=== PATIENT | female | born 1960 | race African-American/Black ===

== ENCOUNTER 2016-08-02 06:36 | Emergency (ER) | payer MEDICARE, OTHER ==
[~2016-08-02] VITALS: Ht 180.3 cm; Wt 132.0 kg
[~2016-08-02 06:36] MED LIST: CLIN-44 PO; FOLI1TAB16 PO; GUAI-56 PO; HYDR-2762 PO; HYDR-971 PO; HYDR25TA9 PO; IBUP-1060 PO; LISI-334 PO; MELO-156 PO; METH2.5T PO; METO50TA2 PO; OXYC-323 PO; PRED-220 PO; RANI150T2 PO; TRAMADOL
[2016-08-02] MEDS ORDERED: ACETAMINOPHEN 325 MG TABLET. PO ONE (07:15)
[2016-08-02 07:40] LABS: BILIRUBIN,URINE NEGATIVE (NEG); GLUCOSE,URINE NEGATIVE (NEG); NITRITE,URINE NEGATIVE (NEG); PH,URINE 5.5; PROTEIN,URINE NEGATIVE (NEG-TRACE); UROBILINOGEN,URINE 0.2 mg/dL (0.2 mg/dL)
--- NOTE | 2016-08-02 07:57 | PHYS DOC ---
Past Medical History Past Medical History: Arthritis, GERD, Hypertension, Other Additional Past Medical Histor: RA Past Surgical History: Other Additional Past Surgical Histo: cyst removed from back Alcohol Use: Occasionally Drug Use: None Adult General Chief Complaint Chief Complaint: HEADACHE HPI HPI Patient is a 56 year old female who presents with illness. Patient reports 2 day history of rhinorrhea, sore throat, dry cough, nausea, & generalized headache. Headache not sudden in onset, not the worst headache of her life. Describes as generalized/frontal, aching. Denies fevers/chills, chest pain, shortness of breath, neck stiffness, abdominal pain, vomiting, diarrhea. Patient has rheumatoid arthritis for which she takes methotrexate. Received a flu shot and pneumonia vaccine this year. PCP is Dr. Sahu. Review of Systems Review of Systems Constitutional: Denies fever or chills Eyes: Denies change in visual acuity HENT: Reports nasal congestion and sore throat Respiratory: Reports cough, denies shortness of breath Cardiovascular: Denies chest pain or edema GI: Reports nausea. Denies abdominal pain, vomiting, bloody stools or diarrhea : Denies dysuria or hematuria Musculoskeletal: Denies back pain or joint pain Integument: Denies rash or skin lesions Neurologic: Reports headache, denies focal weakness or sensory changes Current Medications Current Medications Current Medications Medications (Trade) Dose Ordered Sig/Haylee Start Time Stop Time Status Last Admin Dose Admin Acetaminophen (Tylenol) 650 mg 1X ONCE 08/02/16 07:15 08/02/16 07:16 DC 08/02/16 07:18 650 MG Allergies Allergies Allergies Coded Allergies Type Severity Reaction Last Updated Verified No Known Drug Allergies 04/02/16 No Physical Exam Physical Exam Constitutional: Obese, cheerful, no acute distress, non-toxic appearance. HENT: Normocephalic, atraumatic, bilateral external ears normal, TMs clear bilaterally without bulging or erythema, oropharynx moist, no tonsillar enlargement or exudate, nose normal. Eyes: PERRLA, EOMI, conjunctiva normal, no discharge. Neck: supple, no stridor. No nuchal rigidity Cardiovascular: RRR, no murmurs, no edema. Lungs & Thorax: LCTAB, no wheezing, no respiratory distress. Abdomen: soft, nontender, nondistended. Skin: Warm, dry, no erythema, no rash. Back: No tenderness. Extremities: No tenderness, no edema. Neurologic: Alert and oriented X 3, cranial nerves II through XII grossly intact , symmetric strength and sensation upper and lower extremities, no focal deficits noted. Psychologic: Affect normal, judgement normal, mood normal. Current Patient Data Vital Signs Vital Signs Date Time Temp Pulse Resp B/P Pulse Ox O2 Delivery O2 Flow Rate FiO2 08/02/16 06:38 98.3 77 18 169/92 98 Room Air 98.3 Lab Values Laboratory Tests Test 08/02/16 07:14 08/02/16 07:20 Group A Streptococcus Rapid Negative (NEGATIVE) Urine Collection Type Unknown Urine Color Yellow Urine Clarity Clear Urine pH 5.5 Urine Specific [place] 1.015 Urine Protein Negativemg/dL (NEG-TRACE) Urine Glucose (UA) Negativemg/dL (NEG) Urine Ketones (Stick) Negativemg/dL (NEG) Urine Blood Negative (NEG) Urine Nitrite Negative (NEG) Urine Bilirubin Negative (NEG) Urine Urobilinogen Dipstick 0.2mg/dL (0.2 mg/dL) Urine Leukocyte Esterase Negative (NEG) Urine RBC 0/HPF (0-2) Urine WBC Occ/HPF (0-4) Urine Squamous Epithelial Cells Mod/LPF Urine Bacteria Few/HPF (0-FEW) Urine Mucus Slight/LPF EKG EKG [] Radiology/Procedures Radiology/Procedures Chest x-ray: Interpreted by me: No cardiomegaly, no infiltrate, no pneumothorax , no acute process. [] Course & Med Decision Making Course & Med Decision Making Pertinent Labs and Imaging studies reviewed. (See chart for details) Patient presents with both symptoms. Very well-appearing, vitals stable except mildly elevated blood pressure and she is on medication chronically, currently asymptomatic. No focal findings on physical exam. Negative UA, negative influenza, normal chest x-ray. Recommend supportive care, follow up with primary care physician in 2-3 days if not improving. Return to the emergency department for high fever, severe headache, severe chest pain or shortness of breath, severe abdominal pain, uncontrolled vomiting, any otherwise worsening condition. Discharged home in stable condition. Dragon Disclaimer Dragon Disclaimer This electronic medical record was generated, in whole or in part, using a voice recognition dictation system. Departure Departure Impression: Primary Impression: URI (upper respiratory infection) Disposition: HOME, SELF-CARE Condition: STABLE Referrals: MIGUEL SAHU MD (PCP) Patient Instructions: Upper Respiratory Infection, Adult, [id number] Additional Instructions: You were seen in the emergency department today for illness. This appears to be caused by a virus. Please rest, drink clear fluids, take Tylenol as needed for pain or fever. Follow-up with primary care physician if not improving in 2-3 days. Return to the emergency department for high fever, severe headache, severe chest pain or shortness of breath, severe abdominal pain, uncontrolled vomiting, any otherwise worsening condition. ELIZABETH TUCKER MD Aug 02, 2016 07:56
[2016-08-02 08:00] LABS: NEGATIVE OBC STREP NEG; POSITIVE OBC STREP POS
[2016-08-02 08:03] LABS: BACTERIA,URINE FEW /HPF (0-FEW); RBC,URINE 0 /HPF (0-2); SQUAMOUS EPITHELIAL CELL,UR MOD /LPF; WBC,URINE OCC /HPF (0-4)
--- NOTE | 2016-08-02 08:28 | RAD ---
Indication cough. Near syncope. PA and lateral views of the chest were obtained. Comparison is made to an examination 09/25/2015. The heart and pulmonary vessels are within normal limits. There is no focal infiltrate. A significant change compared to the previous exam is not seen. IMPRESSION: No acute finding. No significant change
[2016-08-02 08:37] VITALS: BP 140/95
== END 2016-08-02 08:38 | disposition home or self-care (01) ==
LOC: ER 06:36
DX: J06.9 Acute upper respiratory infection, unspecified (principal); R51 Headache; I10 Essential (primary) hypertension; K21.9 Gastro-esophageal reflux disease without esophagitis; M06.9 Rheumatoid arthritis, unspecified
CPT/HCPCS: 71020; 81001; 87070; 87880; 99285-25

== ENCOUNTER 2016-12-20 23:20 | Emergency (ER) | payer MEDICARE, OTHER ==
[~2016-12-20] VITALS: Ht 180.3 cm; Wt 132.0 kg
[~2016-12-20 23:20] MED LIST changes: -CLIN-44 PO; +CLIN150C14 PO; -MELO-156 PO; +MELO7.5T29 PO
[2016-12-21 00:19] LABS: BASO % 0 % (0-3); EOS % 3 % (0-3); HEMATOCRIT 40.7 % (36.0-47.0); HEMOGLOBIN 13.2 g/dL (12.0-15.5); LYMPH # 3.5 x10^3/uL (1.0-4.8); LYMPH % 40 % (24-48); MEAN CORPUSCULAR HEMOGLOBIN 30 pg (25-35); MEAN CORPUSCULAR HGB CONC 32 g/dL (31-37); MEAN CORPUSCULAR VOLUME 92 fL (79-100); MONO % 5 % (0-9); NEUT % 53 % (31-73); PLATELET COUNT 292 x10^3/uL (140-400); RED BLOOD COUNT 4.41 x10^6/uL (3.50-5.40); RED CELL DISTRIBUTION WIDTH 13.5 % (11.5-14.5); WHITE BLOOD COUNT 8.9 x10^3/uL (4.0-11.0)
[2016-12-21 00:32] LABS: PROTHROMBIN TIME PATIENT 12.4 SEC (11.7-14.0)
[2016-12-21 00:34] LABS: CALCIUM 9.1 mg/dL (8.5-10.1); CREATININE 0.9 mg/dL (0.6-1.0); GFR 78.4; POTASSIUM 3.3 mmol/L (3.5-5.1)
[2016-12-21 00:40] LABS: ALBUMIN 3.8 g/dL (3.4-5.0); ALBUMIN/GLOBULIN RATIO 0.9 (1.0-1.7); TOTAL BILIRUBIN 0.2 mg/dL (0.2-1.0); TOTAL PROTEIN 8.1 g/dL (6.4-8.2)
--- NOTE | 2016-12-21 00:45 | RAD ---
CT HEAD INDICATION: right side numbness COMPARISON: None available TECHNIQUE: 5 mm contiguous axial images were obtained from the skull base to the vertex. Exposure: One or more of the following individualized dose reduction techniques were utilized for this examination: 1. Automated exposure control 2. Adjustment of the mA and/or kV according to patient size 3. Use of iterative reconstruction technique. FINDINGS: No abnormal attenuation within the brain parenchyma. No evidence of acute intracranial hemorrhage. No extra-axial fluid collections. No mass effect or midline shift. Ventricular size is appropriate. Basal cisterns are patent. No fractures identified.Maza-white differentiation is preserved.Globes and orbits are within normal limits. Paranasal sinuses and mastoid air cells are clear. IMPRESSION: No acute intracranial findings . Electronically signed by: Kennedy Orozco MD (12/21/2016 12:41 AM) [facility]
[2016-12-21 00:57] LABS: BILIRUBIN,URINE NEGATIVE (NEG); GLUCOSE,URINE NEGATIVE (NEG); NITRITE,URINE NEGATIVE (NEG); PH,URINE 5.5; PROTEIN,URINE NEGATIVE (NEG-TRACE); UROBILINOGEN,URINE 0.2 mg/dL (0.2 mg/dL)
[2016-12-21 01:03] LABS: BACTERIA,URINE MANY /HPF (0-FEW); RBC,URINE 0 /HPF (0-2); SQUAMOUS EPITHELIAL CELL,UR MOD /LPF; WBC,URINE OCC /HPF (0-4)
[2016-12-21 01:04] LABS: BARBITURATES NEG (NEG); BENZODIAZEPINES NEG (NEG); CANNABINOIDS NEG (NEG); COCAINE NEG (NEG); METHADONE NEG (NEG); OPIATES NEG (NEG); PHENCYCLIDINE NEG (NEG)
[2016-12-21] MEDS ORDERED: ONDANSETRON PF 4 MG/2 ML VIAL. IV ONE (01:15)
[2016-12-21] MEDS ORDERED: POTASSIUM CHLORIDE 20 MEQ TABLET.ER. PO ONE (01:30)
--- NOTE | 2016-12-21 01:50 | PHYS DOC ---
Past Medical History Past Medical History: Arthritis, GERD, Hypertension, Other Additional Past Medical Histor: RA Past Surgical History: Other Additional Past Surgical Histo: cyst removed from back Alcohol Use: Occasionally Drug Use: None Adult General Chief Complaint Chief Complaint: NEURO SYMPTOMS/DEFICITS HPI HPI Patient is a 56 year old female who presents with right sided numbness. The patient states she fell asleep between [id number], woke up around 2200 feeling numb on her entire right side from her face to torso/upper extremity & lower extremity. Denies associated weakness. She reports shortness of breath & loose bowel movements. Denies fevers/chills, headache, chest pain, nausea, vomiting, hematochezia/melena, dysuria/hematuria. She reports previous history of similar symptoms associated with rheumatoid arthritis & believes that is the cause of tonight's symptoms but wants to be sure. History of HTN & GERD. Her PCP is Dr. Guzman. Review of Systems Review of Systems Constitutional: Denies fever or chills Eyes: Denies change in visual acuity HENT: Denies nasal congestion or sore throat Respiratory: Denies cough, reports shortness of breath Cardiovascular: Denies chest pain or edema GI: Denies abdominal pain, nausea, vomiting, bloody stools, reports diarrhea : Denies dysuria or hematuria Musculoskeletal: Denies back pain or joint pain Integument: Denies rash or skin lesions Neurologic: Denies headache, focal weakness, reports numbness Current Medications Current Medications Current Medications Medications (Trade) Dose Ordered Sig/Ahylee Start Time Stop Time Status Last Admin Dose Admin Ondansetron HCl (Zofran) 4 mg 1X ONCE 12/21/16 01:15 12/21/16 01:16 DC 12/21/16 01:01 4 MG Potassium Chloride (Klor-Con) 40 meq 1X ONCE 12/21/16 01:30 12/21/16 01:31 DC 12/21/16 01:22 40 MEQ Allergies Allergies Allergies Coded Allergies Type Severity Reaction Last Updated Verified No Known Drug Allergies 04/02/16 No Physical Exam Physical Exam Constitutional: obese, no acute distress, non-toxic appearance. HENT: Normocephalic, atraumatic, bilateral external ears normal, oropharynx moist, nose normal. Eyes: PERRLA, EOMI, conjunctiva normal, no discharge. Neck: supple, no stridor. Cardiovascular: RRR, no murmurs, no edema. Lungs & Thorax: LCTAB, no wheezing, no respiratory distress. Abdomen: soft, nontender, nondistended. Skin: Warm, dry, no erythema, no rash. Back: No tenderness. Extremities: No tenderness, no edema. Neurologic: Alert and oriented X 3, CN2-12 grossly intact, symmetric strength to UE & LE, slightly decreased sensation to light touch diffusely to her entire right side, no focal deficits noted. Psychologic: Affect normal, judgement normal, mood normal. Current Patient Data Vital Signs Vital Signs Date Time Temp Pulse Resp B/P (MAP) Pulse Ox O2 Delivery O2 Flow Rate FiO2 12/21/16 02:15 74 20 120/78 (92) 97 Room Air 12/20/16 23:28 97.5 97.5 Lab Values Laboratory Tests Test 12/21/16 00:01 12/21/16 00:40 White Blood Count 8.9 x10^3/uL (4.0-11.0) Red Blood Count 4.41 x10^6/uL (3.50-5.40) Hemoglobin 13.2 g/dL (12.0-15.5) Hematocrit 40.7 % (36.0-47.0) Mean Corpuscular Volume 92 fL (79-100) Mean Corpuscular Hemoglobin 30 pg (25-35) Mean Corpuscular Hemoglobin Concent 32 g/dL (31-37) Red Cell Distribution Width 13.5 % (11.5-14.5) Platelet Count 292 x10^3/uL (140-400) Neutrophils (%) (Auto) 53 % (31-73) Lymphocytes (%) (Auto) 40 % (24-48) Monocytes (%) (Auto) 5 % (0-9) Eosinophils (%) (Auto) 3 % (0-3) Basophils (%) (Auto) 0 % (0-3) Neutrophils # (Auto) 4.7 x10^3uL (1.8-7.7) Lymphocytes # (Auto) 3.5 x10^3/uL (1.0-4.8) Monocytes # (Auto) 0.4 x10^3/uL (0.0-1.1) Eosinophils # (Auto) 0.2 x10^3/uL (0.0-0.7) Basophils # (Auto) 0.0 x10^3/uL (0.0-0.2) Prothrombin Time 12.4 SEC (11.7-14.0) Prothrombin Time INR 1.0 (0.8-1.1) PTT 28 SEC (24-38) Sodium Level 142 mmol/L (136-145) Potassium Level 3.3 mmol/L (3.5-5.1) L Chloride Level 104 mmol/L (98-107) Carbon Dioxide Level 29 mmol/L (21-32) Anion Gap 9 (6-14) Blood Urea Nitrogen 9 mg/dL (7-20) Creatinine 0.9 mg/dL (0.6-1.0) Estimated GFR (Cockcroft-Gault) 78.4 BUN/Creatinine Ratio 10 (6-20) Glucose Level 135 mg/dL (70-99) H Calcium Level 9.1 mg/dL (8.5-10.1) Total Bilirubin 0.2 mg/dL (0.2-1.0) Aspartate Amino Transferase (AST) 15 U/L (15-37) Alanine Aminotransferase (ALT) 22 U/L (14-59) Alkaline Phosphatase 115 U/L (46-116) Troponin I Quantitative < 0.017 ng/mL (0.000-0.055) SQ-Rqs-T-Type Natriuretic Peptide 182 pg/mL (0-124) H Total Protein 8.1 g/dL (6.4-8.2) Albumin 3.8 g/dL (3.4-5.0) Albumin/Globulin Ratio 0.9 (1.0-1.7) L Ethyl Alcohol Level < 10 mg/dL (0-10) Urine Collection Type Unknown Urine Color Yellow Urine Clarity Clear Urine pH 5.5 Urine Specific [place] 1.015 Urine Protein Negative mg/dL (NEG-TRACE) Urine Glucose (UA) Negative mg/dL (NEG) Urine Ketones (Stick) Negative mg/dL (NEG) Urine Blood Negative (NEG) Urine Nitrite Negative (NEG) Urine Bilirubin Negative (NEG) Urine Urobilinogen Dipstick 0.2 mg/dL (0.2 mg/dL) Urine Leukocyte Esterase Negative (NEG) Urine RBC 0 /HPF (0-2) Urine WBC Occ /HPF (0-4) Urine Squamous Epithelial Cells Mod /LPF Urine Bacteria Many /HPF (0-FEW) Urine Mucus Slight /LPF Urine Opiates Screen Neg (NEG) Urine Methadone Screen Neg (NEG) Urine Barbiturates Neg (NEG) Urine Phencyclidine Screen Neg (NEG) Urine Amphetamine/Methamphetamine Neg (NEG) Urine Benzodiazepines Screen Neg (NEG) Urine Cocaine Screen Neg (NEG) Urine Cannabinoids Screen Neg (NEG) Urine Ethyl Alcohol Neg (NEG) Laboratory Tests 12/21/16 00:01 Laboratory Tests 12/21/16 00:01 EKG EKG Interpreted by me: Normal sinus rhythm rate 83, no acute ST or T wave changes, normal intervals, no ectopy. [] Radiology/Procedures Radiology/Procedures PROCEDURE: CT HEAD WO CONTRAST CT HEAD INDICATION: right side numbness COMPARISON: None available TECHNIQUE: 5 mm contiguous axial images were obtained from the skull base to the vertex. Exposure: One or more of the following individualized dose reduction techniques were utilized for this examination: 1. Automated exposure control 2. Adjustment of the mA and/or kV according to patient size 3. Use of iterative reconstruction technique. FINDINGS: No abnormal attenuation within the brain parenchyma. No evidence of acute intracranial hemorrhage. No extra-axial fluid collections. No mass effect or midline shift. Ventricular size is appropriate. Basal cisterns are patent. No fractures identified.Maza-white differentiation is preserved.Globes and orbits are within normal limits. Paranasal sinuses and mastoid air cells are clear. IMPRESSION: No acute intracranial findings . Electronically signed by: Kennedy Orozco MD (12/21/2016 12:41 AM) [facility] DICTATED and SIGNED BY: KENNEDY OROZCO MD DATE: 12/21/16 0039 CXR, portable: interpreted by me: cardiomegaly, no infiltrate, no pneumothorax.[] Course & Med Decision Making Course & Med Decision Making Pertinent Labs and Imaging studies reviewed. (See chart for details) The patient presents with several complaints including right sided numbness & tingling, shortness of breath, diarrhea. She is cheerful & well appearing with essentially unremarkable exam other than some sensory changes on the right. Vitals stable with the exception of elevated blood pressure upon arrival. She states she has HTN, just took her night meds before coming to the hospital. Obtained labs, UA, EKG, CXR, head CT. Found to have mild hypokalemia. She felt better after treatment with improvement of blood pressure to high normal range, resolution of dyspnea. Discussed disposition & she feels reassured by workup here. Symptoms atypical for ACS or acute neurologic event, offered admission but she prefers to go home to rest in her own bed & prefers to follow up with primary care physician on Friday. Recommend rest, hydration, tylenol or ibuprofen for pain or fever. Follow up with Dr. Guzman in 2-3 days. Come back for severe chest pain or abdominal pain, severe shortness of breath, uncontrolled vomiting, new focal neuro deficit, any otherwise worsening condition. Discharged home in stable condition. [] Dragon Disclaimer Dragon Disclaimer This electronic medical record was generated, in whole or in part, using a voice recognition dictation system. Departure Departure Impression: Primary Impression: Viral syndrome Additional Impressions: Paresthesia Hypokalemia Disposition: HOME, SELF-CARE Condition: STABLE Referrals: MIGUEL GUZMAN MD (PCP) Patient Instructions: Viral Syndrome Additional Instructions: You were seen in the emergency department today. Tests here did not show serious cause of symptoms. Please rest, drink fluids, take Tylenol or ibuprofen for pain. Continue take all medications as prescribed by your doctor. Follow-up with primary care physician in 2-3 days. Return to the emergency department for high fever, severe chest pain or shortness of breath, uncontrolled vomiting, numbness or weakness in arms or legs, any otherwise worsening condition. Problem Qualifiers ELIZABETH TUCKER MD Dec 21, 2016 01:50
[2016-12-21 02:15] VITALS: BP 120/78
--- NOTE | 2016-12-21 07:22 | EKG ---
[facility] [address] [place] [address] Test Date: 2016-12-20 Test Time: 23:34:07 Pat Name: DEAN TREVIZO Department: Room: Gender: F Change Release Manager: : 1960 Requested By: ELIZABETH TUCKER Order Number: [id number] Reading MD: Anna Nassar Measurements Intervals Spring Rate: 83 P: 28 VA: 150 QRS: -13 QRSD: 80 T: 17 QT: 378 QTc: 450 Interpretive Statements SINUS RHYTHM LEFTWARD AXIS NO SPECIFIC ECG ABNORMALITIES Electronically Signed On 12-22-2016 19:54:23 CDT by Anna Nassar
--- NOTE | 2016-12-21 08:00 | RAD ---
Indication: Short of breath. Technique: Upright portable chest radiograph was obtained. Comparison is from August 02, 2016. Findings: The lungs are clear. The cardiopulmonary silhouette is within normal limits. The bony structures are intact. Leads overlie the patient. Impression: No active pulmonary disease.
[2016-12-24] MEDS ORDERED: PANT40GR PO (10:19)
[2016-12-24] MEDS ORDERED: DICY10CA53 PO (10:19)
== END 2016-12-21 02:17 | disposition home or self-care (01) ==
LOC: ER 23:20
DX: B34.9 Viral infection, unspecified (principal); R20.2 Paresthesia of skin; R20.0 Anesthesia of skin; R19.7 Diarrhea, unspecified; R06.02 Shortness of breath; E87.6 Hypokalemia; I10 Essential (primary) hypertension; K21.9 Gastro-esophageal reflux disease without esophagitis; M06.9 Rheumatoid arthritis, unspecified; E66.9 Obesity, unspecified; Z68.41 Body mass index [BMI] 40.0-44.9, adult
CPT/HCPCS: 36415; 70450; 71010; 80053; 80307; 81001; 83880; 84484; 85025; 85610; 85730; 87086; 93005; 96374; 99285; G0480; J2405; G0479

== ENCOUNTER 2016-12-22 07:09 | Inpatient (IN) | payer MEDICARE, OTHER ==
[~2016-12-22] VITALS: Ht 180.3 cm; Wt 142.9 kg
--- NOTE | 2016-12-22 07:16 | PHYS DOC ---
Past Medical History Past Medical History: Arthritis, GERD, Hypertension, Other Additional Past Medical Histor: RA Past Surgical History: Other Additional Past Surgical Histo: cyst removed from back Alcohol Use: Occasionally Drug Use: None Adult General Chief Complaint Chief Complaint: BLOODY STOOL HPI HPI Patient is a 56 year old -[place] female who presents with abdominal pain and blood in her stools. She states that she was fine until about 1 AM when she woke up with crampy abdominal pain and use a bathroom and had a large loose stool followed by bright red blood. She states since then she started up approximately 3 times nonbloody nonbilious vomit. She states that she has diffuse abdominal cramps and has had 2-3 more episodes of a small amount of bright red blood in the toilet. She states she's been using 800 mg of ibuprofen 3 times daily since Friday. She has a history of RA and is on methotrexate daily. 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 She also states that she feels over the last month her abdomen is been more distended than normal. She states she was unable to take her blood pressure medicines this morning and that's why her blood pressures elevated. Review of Systems Review of Systems Constitutional: Denies fever or chills [] Eyes: Denies change in visual acuity, redness, or eye pain [] HENT: Denies nasal congestion or sore throat [] Respiratory: Denies cough or shortness of breath [] Cardiovascular: No additional information not addressed in HPI [] GI: Positive for abdominal pain, nausea, vomiting, bloody stools and diarrhea [] : Denies dysuria or hematuria [] Musculoskeletal: Denies back pain or joint pain [] Integument: Denies rash or skin lesions [] Neurologic: Denies headache, focal weakness or sensory changes [] Endocrine: Denies polyuria or polydipsia [] Current Medications Current Medications Current Medications Medications (Trade) Dose Ordered Sig/Haylee Start Time Stop Time Status Last Admin Dose Admin Morphine Sulfate 2 mg PRN Q15MIN PRN 12/22/16 07:45 12/22/16 08:34 DC 12/22/16 08:11 2 MG Sodium Chloride 1,000 ml @ 1,000 mls/hr 1X ONCE 12/22/16 07:45 12/22/16 08:44 DC 12/22/16 08:11 1,000 MLS/HR Allergies Allergies Allergies Coded Allergies Type Severity Reaction Last Updated Verified No Known Drug Allergies 04/02/16 No Physical Exam Physical Exam Constitutional: Well developed, well nourished, no acute distress, non-toxic appearance. [] HENT: Normocephalic, atraumatic, bilateral external ears normal, oropharynx moist, no oral exudates, nose normal. [] Eyes: PERRLA, EOMI, conjunctiva normal, no discharge. [] Neck: Normal range of motion, no tenderness, supple, no stridor. [] Cardiovascular:Heart rate regular rhythm, no murmur [] Lungs & Thorax: Bilateral breath sounds clear to auscultation [] Abdomen/rectal exam: Bowel sounds normal, soft, no tenderness, no masses, no pulsatile masses. Rectal exam shows no hemorrhoids, normal tone, small amount of bright red blood, no stool noted. Skin: Warm, dry, no erythema, no rash. [] Back: No tenderness, no CVA tenderness. [] Extremities: No tenderness, no cyanosis, no clubbing, ROM intact, no edema. [] Neurologic: Alert and oriented X 3, normal motor function, normal sensory function, no focal deficits noted. [] Psychologic: Affect normal, judgement normal, mood normal. [] Current Patient Data Vital Signs Vital Signs Date Time Temp Pulse Resp B/P (MAP) Pulse Ox O2 Delivery O2 Flow Rate FiO2 12/22/16 07:09 97 18 212/112 (145 99 Room Air EKG EKG EKG shows sinus rhythm with a rate of [address] elevations, T-wave inversions noted in leads 3, left axis deviation noted, QTC 455 ms, as interpreted by me. Radiology/Procedures Radiology/Procedures [facility] [address] [place] [address] IMAGING REPORT Signed PATIENT: DEAN TREVIZO ACCOUNT: [id number] : 1960 LOCATION: [address] [place] [address] AGE: 56 SEX: F EXAM STATUS: ADM IN ORD. PHYSICIAN: RENU WILLAMS MD REASON: abd pain, gi bleed PROCEDURE: CT ABD PELV W/ IV CONTRST ONLY Indication: Abdominal pain, nausea, GI bleed today. Technique: Axial images and coronal and sagittal reformatted images are provided. 75 mL of intravenous Omnipaque 300 was administered without complication. No comparison is available. One or more of the following individualized dose reduction techniques were utilized for this examination: 1. Automated exposure control 2. Adjustment of the mA and/or kV according to patient size 3. Use of iterative reconstruction technique Findings: There is dependent atelectasis. There is no pleural effusion. The heart is not enlarged. There is mild fatty infiltration of the liver. Gallbladder is unremarkable. Spleen is not enlarged. Pancreas and adrenals are unremarkable. Kidneys are symmetrically perfused. Aorta is normal caliber with minimal atheromatous disease. Lack of oral contrast limits evaluation of bowel. There is no small bowel obstruction or mural thickening. There are a few diverticula in the colon, but no adjacent inflammatory stranding to suggest a diverticulitis. Much of the colon is decompressed limiting evaluation. A normal appendix is noted. Calcified phleboliths are noted. There may also be ligation clips. There is no adnexal mass. Bladder is decompressed. There are mild degenerative changes in the spine. Impression: 1. No acute abdominal findings. 2. A few diverticula in the colon but no findings of diverticulitis. Evaluation of the colon is limited given incomplete distention. 3. Mild fatty infiltration of the liver. DICTATED and SIGNED BY: NORY MIRAMONTES MD DATE: 12/22/16 0914 CC: RENU WILLAMS MD; KUSHAL GUZMAN MD ~ Impressions: GI bleed Uncontrolled hypertension Rheumatoid arthritis Course & Med Decision Making Course & Med Decision Making Pertinent Labs and Imaging studies reviewed. (See chart for details) On rectal exam patient has small amount of bright red blood, she's had 3 very small bright red blood bowel movements here in the ER. I She is not tachycardic. She is hypertensive. She is received IV hydralazine to help control her blood pressure. She was started on IV Pepcid since we have a shortage of Protonix. CT of abdomen pelvis did not show any acute abnormalities. Spoke with Dr. Guzman, who once GI consult. Patient's in stable condition being admitted to the floor. Spoke with Dr. Moreira who wanted Protonix drip started. I had pharmacy add this order, since we have a shortage of Protonix and they will send an upstairs to her room since she's being transported upstairs at this time. Dragon Disclaimer Dragon Disclaimer This electronic medical record was generated, in whole or in part, using a voice recognition dictation system. Departure Departure Impression: Primary Impression: GI bleed Disposition: ADMITTED INPATIENT Admitting Physician: Kushal Guzman Condition: STABLE Referrals: KUSHAL GUZMAN MD (PCP) Problem Qualifiers Primary Impression: GI bleed GI bleed type/associated pathology: unspecified gastrointestinal hemorrhage type Qualified Codes: K92.2 - Gastrointestinal hemorrhage, unspecified RENU WILLAMS MD Dec 22, 2016 07:16
[2016-12-22] MEDS ORDERED: IV NORMAL SALINE 1000ML BAG 1,000 ML IV ONE (07:45)
[2016-12-22] MEDS ORDERED: MORPHINE SULFATE 4 MG/ML DISP.SYRIN. IV/SQ PRN (07:45)
[2016-12-22] MEDS ORDERED: CONTRAST GIVEN MC PRN (08:15)
[2016-12-22] MEDS ORDERED: ONDANSETRON PF 4 MG/2 ML VIAL. IV ONE (08:15)
[2016-12-22 08:23] LABS: NEG OBC FOB NEG; POS OBC FOB POS
[2016-12-22] MEDS ORDERED: FAMOTIDINE 20 MG/2 ML VIAL IVP ONE (08:30)
[2016-12-22] MEDS ORDERED: hydrALAZINE 20 MG/ML VIAL. IVP ONE (08:30)
[2016-12-22] MEDS ORDERED: IOHEXOL 300 MG/ML 75 ML VIAL IV ONE (08:30)
[2016-12-22 08:50] LABS: BASO % 0 % (0-3); EOS % 1 % (0-3); HEMATOCRIT 40.5 % (36.0-47.0); LYMPH # 1.3 x10^3/uL (1.0-4.8); LYMPH % 10 % (24-48); MEAN CORPUSCULAR HEMOGLOBIN 29 pg (25-35); MEAN CORPUSCULAR HGB CONC 32 g/dL (31-37); MEAN CORPUSCULAR VOLUME 92 fL (79-100); MONO % 4 % (0-9); NEUT % 85 % (31-73); PLATELET COUNT 273 x10^3/uL (140-400); RED BLOOD COUNT 4.42 x10^6/uL (3.50-5.40); RED CELL DISTRIBUTION WIDTH 13.5 % (11.5-14.5); WHITE BLOOD COUNT 12.1 x10^3/uL (4.0-11.0)
[2016-12-22 08:56] LABS: CALCIUM 9.4 mg/dL (8.5-10.1); GFR 69.4; POTASSIUM 4.3 mmol/L (3.5-5.1)
[2016-12-22 09:01] LABS: PROTHROMBIN TIME PATIENT 12.3 SEC (11.7-14.0)
[2016-12-22 09:02] LABS: ALBUMIN 4.3 g/dL (3.4-5.0); DIRECT BILIRUBIN 0.1 mg/dL (0.0-0.2); TOTAL BILIRUBIN 0.2 mg/dL (0.2-1.0); TOTAL PROTEIN 8.3 g/dL (6.4-8.2)
--- NOTE | 2016-12-22 09:22 | RAD ---
Indication: Abdominal pain, nausea, GI bleed today. Technique: Axial images and coronal and sagittal reformatted images are provided. 75 mL of intravenous Omnipaque 300 was administered without complication. No comparison is available. One or more of the following individualized dose reduction techniques were utilized for this examination: 1. Automated exposure control 2. Adjustment of the mA and/or kV according to patient size 3. Use of iterative reconstruction technique Findings: There is dependent atelectasis. There is no pleural effusion. The heart is not enlarged. There is mild fatty infiltration of the liver. Gallbladder is unremarkable. Spleen is not enlarged. Pancreas and adrenals are unremarkable. Kidneys are symmetrically perfused. Aorta is normal caliber with minimal atheromatous disease. Lack of oral contrast limits evaluation of bowel. There is no small bowel obstruction or mural thickening. There are a few diverticula in the colon, but no adjacent inflammatory stranding to suggest a diverticulitis. Much of the colon is decompressed limiting evaluation. A normal appendix is noted. Calcified phleboliths are noted. There may also be ligation clips. There is no adnexal mass. Bladder is decompressed. There are mild degenerative changes in the spine. Impression: 1. No acute abdominal findings. 2. A few diverticula in the colon but no findings of diverticulitis. Evaluation of the colon is limited given incomplete distention. 3. Mild fatty infiltration of the liver.
--- NOTE | 2016-12-22 09:29 | EKG ---
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
[2016-12-22] MEDS: MORPHINE SULFATE 4 MG/ML DISP.SYRIN. IV PRN ×3 (09:40→20:20)
[2016-12-22] MEDS: PANTOPRAZOLE SODIUM IV 80 MG in IV NORMAL SALINE 100ML 100 ML IV SCH ×2 (10:20→21:00)
[2016-12-22] MEDS ORDERED: PANTOPRAZOLE IV PUSH 40 MG VIAL. IVP ONE (10:30)
[2016-12-22 11:04] VITALS: BP 157/105
[2016-12-22 11:39] LABS: BILIRUBIN,URINE NEGATIVE (NEG); GLUCOSE,URINE NEGATIVE (NEG); NITRITE,URINE NEGATIVE (NEG); PROTEIN,URINE 100 mg/dL (NEG-TRACE); UROBILINOGEN,URINE 0.2 mg/dL (0.2 mg/dL)
[2016-12-22 11:49] LABS: BACTERIA,URINE MODERATE /HPF (0-FEW); RBC,URINE TNTC /HPF (0-2); WBC,URINE TNTC /HPF (0-4)
[2016-12-22] MEDS: ONDANSETRON PF 4 MG/2 ML VIAL. IV PRN (12:24)
--- NOTE | 2016-12-22 14:26 | PDOC ---
Provider Note Provider Note Pt seen.H&P dictated. #[id number] MIGUEL GUZMAN MD Dec 22, 2016 14:26
[2016-12-22] MEDS: METOPROLOL TART IMMED RELEASE 50 MG TABLET. PO SCH (14:53)
[2016-12-22] MEDS: hydroCHLOROthiazide 25 MG TABLET PO SCH (14:54)
[2016-12-22] MEDS: LISINOPRIL 20 MG TABLET PO SCH (14:54)
[2016-12-22] MEDS: FOLIC ACID 1 MG TABLET. PO SCH (14:54)
[2016-12-22] MEDS: NICOTINE 14MG PATCH. TD PRN (14:55)
[2016-12-22 14:57] VITALS: BP 162/98
--- NOTE | 2016-12-22 14:58 | HP ---
ADMIT DATE: 12/22/2016 DATE OF SERVICE: 12/22/2016 LOCATION: [facility]. REASON FOR ADMISSION TO THE HOSPITAL: Lower GI bleeding. HISTORY OF PRESENT ILLNESS: The patient is a 56-year-old female who came to the Emergency Room because of blood in the stools. 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 She came to the Emergency Room and had a CT scan that showed some diverticulosis. The patient was admitted to the hospital. She was taking ibuprofen 800 mg 3 times daily and had seen her grad intern and also put on methotrexate. The patient was admitted to the hospital because of her lower GI bleed. PAST MEDICAL HISTORY: Arthritis, hypertension, GERD, rheumatoid arthritis. PAST SURGICAL HISTORY: Cyst removed from the back. SOCIAL HISTORY: Denies any drugs, has history of smoking in the past and social alcohol. FAMILY HISTORY: Positive for hypertension, heart disease. REVIEW OF SYSTEMS: CARDIAC: No chest pain. GASTROINTESTINAL: Has red blood per rectum, no vomiting blood. Rest of the 14 systems was reviewed and negative. ALLERGIES: No known drug allergies. MEDICATIONS AT HOME: The patient is on methotrexate once a week tablets, ibuprofen 800 mg 3 times daily, Zantac 150 mg daily, folic acid 1 mg daily, hydrochlorothiazide 25 daily, lisinopril 20 mg daily, metoprolol 50 mg daily. PHYSICAL EXAMINATION: GENERAL: The patient is not in any distress. VITAL SIGNS: Stable. Temperature 98, pulse 97, respirations 18, blood pressure 212/112. HEENT: Head is atraumatic. Pupils equal. Oral cavity: No congestion. NECK: Supple. Thyroid not enlarged. JVD not elevated. CHEST: Symmetrical. CARDIOVASCULAR: S1, S2. LUNGS: Clear to auscultation. ABDOMEN: Slight tenderness in the lower abdomen. Otherwise, good bowel sounds. No mass palpable. GENITOURINARY: External genitalia and rectal examination is deferred. EXTREMITIES: No calf tenderness. NEUROLOGIC: No focal deficit noted. LABORATORY DATA: White count was 12, hemoglobin 13, platelets 273. Electrolytes show sodium 142, potassium 4.3, chloride 103, bicarbonate 25, anion gap 14, BUN 10, creatinine 1.1, glucose 136. LFTs were normal, alkaline phosphatase 129 slightly elevated, INR 1.0. Urine shows moderate leukocyte esterase, too many white cells. Stool occult blood test was positive. RADIOLOGIC IMAGING: Abdominal and pelvic CT scan shows few diverticula in the colon, mild fatty infiltration of the liver. FINAL IMPRESSION: 1. Lower gastrointestinal bleed. 2. Possible bleed secondary to diverticular bleed. 3. The patient is on ibuprofen for arthritis. 4. The patient has a history of EGD and colonoscopy within last 6 months. 5. Urinary tract infection. PLAN: The patient was admitted to the hospital, hydrated with IV fluids. Consultation done by GI. Monitor hemoglobin and clear liquid diet and also IV Rocephin for UTI after urine cultures were sent and see how she responds. We will give IV Protonix while she is in the hospital. MIGUEL GUZMAN MD DR: AMY/ishmael JOB#: [id number] / [id number] CARMELA
[2016-12-22] MEDS: IV NORMAL SALINE 1000ML BAG 1,000 ML IV SCH (15:00)
[2016-12-22 19:52] VITALS: BP_SYST 140
[2016-12-22 23:37] VITALS: BP 125/84
[2016-12-23] MEDS: ONDANSETRON PF 4 MG/2 ML VIAL. IV PRN ×2 (00:20→16:29)
[2016-12-23] MEDS: MORPHINE SULFATE 4 MG/ML DISP.SYRIN. IV PRN ×5 (00:21→21:33)
[2016-12-23] MEDS: IV NORMAL SALINE 1000ML BAG 1,000 ML IV SCH ×3 (01:00→21:21)
[2016-12-23] MEDS: PANTOPRAZOLE SODIUM IV 80 MG in IV NORMAL SALINE 100ML 100 ML IV SCH (01:31)
[2016-12-23 03:00] VITALS: BP 100/81
--- NOTE | 2016-12-23 03:40 | ACF ---
Admission Forms Criteria GASTROINTESTINAL BLEEDING Clinical Indications for Inpatient Care (Place 'X' for any and all applicable criteria): Ongoing inpatient care may be indicated for gastrointestinal bleeding with ANY ONE of the following (4)(20)(21)(22)(23)(24): [X ]I. Active bleeding (eg, fresh voluminous blood in emesis or nasogastric aspirate, or per rectum) [ ]II. Hemodynamic instability [ ]III. Anticoagulation therapy or coagulopathy ((eg, advanced liver disease, irreversible anticoagulation) [ ]IV. Ischemic colitis (22) [ ]V. Endoscopy showing arterial bleeding, adherent clot, nonbleeding visible vessel, varices, flat red spots, ulcer size greater than 2 cm, or portal hypertensive gastropathy [ ]. High-risk low platelet count [ ]VII. Anemia requiring inpatient care as indicated by ANY ONE of the following a)[ ] Cognitive impairment b)[ ] Syncope c)[ ] Heart failure d)[ ] Chest pain e)[ ] Dyspnea f)[ ] Other findings suggesting inadequate perfusion (eg, peripheral or myocardial ischemia, end organ dysfunction) [ ]VIII. High-risk low platelet count [ ]IX. Suspected variceal cause of bleeding as indicated by ANY ONE of the following(27)(28): a)[ ] Known varices b)[ ] Hepatomegaly or splenomegaly c)[ ] Ascites d)[ ] Jaundice or scleral icterus e)[ ] History of liver disease (eg, cirrhosis) f)[ ] Physical findings of portal hypertension (eg, caput medusa) g)[ ] Comorbid disorder indicating risk for portal vein thrombosis (eg , abdominal surgery, sepsis, shock, exchange transfusion, prior umbilical vein catheterization) Extended stay may be needed until ALL of the following are present(20)(38)(47): [ ]a) Hemodynamic stability [ ]b) No evidence of active bleeding (eg, stable Hematocrit) [ ]c) Platelet count, prothrombin time, and partial thromboplastin time acceptable for next level of care [ ]d) Surgical or other acute intervention not needed [ ]e) Oral hydration and diet tolerated The original [employer] content created by [employer] has been revised. The portions of the content which have been revised are identified through the use of italic text or in bold, and [employer] has neither reviewed nor approved the modified material. All other unmodified content is copyright [facility]. Please see references footnoted in the original [facility] edition 2016 Admission Criteria Met?: Yes PIPO ONEAL Dec 23, 2016 03:40
[2016-12-23 05:39] LABS: BASO % 0 % (0-3); EOS % 1 % (0-3); HEMATOCRIT 38.7 % (36.0-47.0); HEMOGLOBIN 13.1 g/dL (12.0-15.5); LYMPH # 3.7 x10^3/uL (1.0-4.8); LYMPH % 28 % (24-48); MEAN CORPUSCULAR HEMOGLOBIN 30 pg (25-35); MEAN CORPUSCULAR HGB CONC 34 g/dL (31-37); MEAN CORPUSCULAR VOLUME 89 fL (79-100); MONO % 5 % (0-9); NEUT % 65 % (31-73); PLATELET COUNT 302 x10^3/uL (140-400); RED BLOOD COUNT 4.35 x10^6/uL (3.50-5.40); RED CELL DISTRIBUTION WIDTH 13.3 % (11.5-14.5); WHITE BLOOD COUNT 13.1 x10^3/uL (4.0-11.0)
[2016-12-23 06:09] LABS: CALCIUM 9.3 mg/dL (8.5-10.1); CREATININE 1.2 mg/dL (0.6-1.0); GFR 56.2; POTASSIUM 3.3 mmol/L (3.5-5.1)
[2016-12-23 07:00] VITALS: BP 138/98
[2016-12-23] MEDS: FOLIC ACID 1 MG TABLET. PO SCH (08:29)
[2016-12-23] MEDS: hydroCHLOROthiazide 25 MG TABLET PO SCH (08:30)
[2016-12-23] MEDS: LISINOPRIL 20 MG TABLET PO SCH (08:30)
[2016-12-23] MEDS: METOPROLOL TART IMMED RELEASE 50 MG TABLET. PO SCH (08:31)
[2016-12-23] MEDS: NICOTINE 14MG PATCH. TD PRN (08:31)
--- NOTE | 2016-12-23 08:43 | CONS ---
DATE OF CONSULTATION: 12/22/2016 REQUESTING PHYSICIAN: Dr. Sahu. PRIMARY CARE PHYSICIAN: Dr. Sahu. REASON FOR CONSULTATION: Rectal bleed. HISTORY OF PRESENT ILLNESS: This is a 56-year-old female who was admitted to [facility] on 12/22/2016 for blood in her stool. She reports that she had a very large bowel movement yesterday followed by bright red blood. She had some episodes of emesis that were not hematemesis. She also reports abdominal distention over the last several weeks. She has a history of rheumatoid arthritis and has been on methotrexate as well as Motrin. She was recently advised by her solutions consultant to start taking Motrin three times a day. Additionally, she does take uqla-nqo-cidblhs NSAIDs when she has more pain. She is also taking ranitidine for GI issues. Otherwise, she denies a prior history of an upper endoscopy. She reports a colonoscopy by Dr. Juan Daniel Rahman 6 months ago that was reportedly negative. In the Emergency Room, laboratory studies were checked. She was found to be positive for occult blood and her hemoglobin was noted to be 13. Her coags showed an INR of 1. Her BUN was 10 with a creatinine of 1. Her alkaline phosphatase was elevated at 129. PAST MEDICAL HISTORY: 1. Arthritis. 2. GERD. 3. Hypertension. 4. Rheumatoid arthritis. 5. Cyst removal from her back. REVIEW OF SYSTEMS: A 13-point review of systems was done. It is positive as per HPI and otherwise negative. HOME MEDICATIONS: Include: 1. Motrin. 2. Methotrexate. 3. Folic acid. 4. Metoprolol. 5. Lisinopril. 6. Hydrocodone. 7. Ranitidine. 8. Oyzl-uuz-mygtwxd NSAIDs p.r.n. FAMILY MEDICAL HISTORY: No colorectal cancer. SOCIAL HISTORY: No tobacco, alcohol or IV drug abuse. PHYSICAL EXAMINATION: VITAL SIGNS: Temperature is 99.1, blood pressure 157/105, heart rate is 81. GENERAL: She is an obese female in no apparent distress. HEENT: Oropharynx is clear. CARDIOVASCULAR: S1, S2. LUNGS: Clear. ABDOMEN: Does have normoactive bowel sounds, is soft, but diffusely tender to palpation. EXTREMITIES: No edema. NEUROLOGIC: She is awake, alert and oriented x 3. LABORATORY DATA: White blood cell count of 12.1 with a hemoglobin of 13, platelets are 273. Coags are normal. Chemistries show an elevated alkaline phosphatase at 129, but otherwise LFTs are normal. Her BUN was 10 with a creatinine of 1. Fecal occult was positive. UA showed moderate leukocyte esterase, moderate bacteria with too numerous to count red blood cells and white blood cells, but her nitrite was negative. IMAGING STUDIES: CT of the abdomen and pelvis showed a few diverticula in the colon, but no evidence of diverticulitis and mild fatty infiltration of the liver. ASSESSMENT AND PLAN: 1. Rectal bleed: Differential diagnosis includes hemorrhoidal bleed versus a diverticular bleed versus a possible upper gastrointestinal source. Currently, her hemoglobin is high at 13. I have started her on a proton pump inhibitor drip and will continue to monitor her hemoglobin. Anticipate an upper endoscopy in the next 12-24 hours. We will continue to monitor her hemoglobin as well. I favor holding nonsteroidal anti-inflammatories at this time. 2. Increased abdominal distention: Her UA is somewhat suggestive of urinary tract infection. I will defer this evaluation to her primary. 3. Elevated alkaline phosphatase: I will check a GGT. In the setting of increased abdominal distention, consider an abdominal sonogram as well. Thank you for allowing me and Dr. Campbell to participate in the care of this patient. BRENDA RAMIREZ MD DR: CHILANGO/ishmael JOB#: [id number] / [id number] MIGUEL Fabian MD, MICHAEL MD
--- NOTE | 2016-12-23 09:26 | PDOC ---
PROGRESS NOTES Subjective Subjective still has abd pain and mild lower gi bleed Objective Objective Vital Signs Date Time Temp Pulse Resp B/P (MAP) Pulse Ox O2 Delivery O2 Flow Rate FiO2 12/23/16 08:32 Room Air 12/23/16 08:31 90 138/98 12/23/16 07:00 98.6 20 98 98.6 Intake and Output 12/23/16 07:00 Intake Total 1270 ml Output Total 2800 ml Balance -1530 ml Intake Oral 1270 ml Output Urine Total 2800 ml # Bowel Movements 2 Physical Exam Abdomen: Normal bowel sounds, Soft Heart: Regular rate, Normal S1, Normal S2 Extremities: No clubbing General: Alert HEENT: Atraumatic Lungs: Clear to auscultation MUSCULOSKELETAL: No swelling Neck: Supple Neuro: Normal speech Psych/Mental Status: Mood NL Skin: No breakdown Assessment Assessment FINAL IMPRESSION: 1. Lower gastrointestinal bleed. 2. Possible bleed secondary to diverticular bleed vs internal hemorrhoids. 3. The patient is on ibuprofen for arthritis. 4. The patient has a history of EGD and colonoscopy within last 6 months. 5. Urinary tract infection. PLAN: Hb stable at 13. urine c/s pending sono liver this am. ?EGD in am. replace potassium clear liquid diet. add flagyl+rocephin The patient was admitted to the hospital, hydrated with IV fluids. Consultation done by GI. Monitor hemoglobin and clear liquid diet and also IV Rocephin for UTI after urine cultures were sent and see how she responds. We will give IV Protonix while she is in the hospital. Problems: Comment Review of Relevant I have reviewed the following items jessica (where applicable) has been applied. Labs Laboratory Tests Test 12/22/16 11:10 12/22/16 14:00 12/22/16 20:50 12/23/16 04:05 Urine Collection Type Unknown Urine Color Red Urine Clarity Turbid Urine pH 7.0 Urine Specific [employer] [place] >=1.030 Urine Protein 100 mg/dL (NEG-TRACE) Urine Glucose (UA) Negative mg/dL (NEG) Urine Ketones (Stick) Trace mg/dL (NEG) Urine Blood Large (NEG) Urine Nitrite Negative (NEG) Urine Bilirubin Negative (NEG) Urine Urobilinogen Dipstick 0.2 mg/dL (0.2 mg/dL) Urine Leukocyte Esterase Moderate (NEG) Urine RBC Tntc /HPF (0-2) Urine WBC Tntc /HPF (0-4) Urine Bacteria Moderate /HPF (0-FEW) Hemoglobin 13.0 g/dL (12.0-15.5) 12.7 g/dL (12.0-15.5) 13.1 g/dL (12.0-15.5) Troponin I Quantitative < 0.017 ng/mL (0.000-0.055) < 0.017 ng/mL (0.000-0.055) White Blood Count 13.1 x10^3/uL (4.0-11.0) Red Blood Count 4.35 x10^6/uL (3.50-5.40) Hematocrit 38.7 % (36.0-47.0) Mean Corpuscular Volume 89 fL (79-100) Mean Corpuscular Hemoglobin 30 pg (25-35) Mean Corpuscular Hemoglobin Concent 34 g/dL (31-37) Red Cell Distribution Width 13.3 % (11.5-14.5) Platelet Count 302 x10^3/uL (140-400) Neutrophils (%) (Auto) 65 % (31-73) Lymphocytes (%) (Auto) 28 % (24-48) Monocytes (%) (Auto) 5 % (0-9) Eosinophils (%) (Auto) 1 % (0-3) Basophils (%) (Auto) 0 % (0-3) Neutrophils # (Auto) 8.6 x10^3uL (1.8-7.7) Lymphocytes # (Auto) 3.7 x10^3/uL (1.0-4.8) Monocytes # (Auto) 0.7 x10^3/uL (0.0-1.1) Eosinophils # (Auto) 0.2 x10^3/uL (0.0-0.7) Basophils # (Auto) 0.0 x10^3/uL (0.0-0.2) Sodium Level 139 mmol/L (136-145) Potassium Level 3.3 mmol/L (3.5-5.1) Chloride Level 100 mmol/L (98-107) Carbon Dioxide Level 25 mmol/L (21-32) Anion Gap 14 (6-14) Blood Urea Nitrogen 7 mg/dL (7-20) Creatinine 1.2 mg/dL (0.6-1.0) Estimated GFR (Cockcroft-Gault) 56.2 Glucose Level 121 mg/dL (70-99) Calcium Level 9.3 mg/dL (8.5-10.1) Gamma Glutamyl Transpeptidase 49 U/L (5-55) Medications Current Medications Ceftriaxone Sodium 1 gm/ Sodium Chloride 50 ml @ 100 mls/hr Q24H IV Last administered on 12/22/16 15:00; Start 12/22/16 at 15:00 Folic Acid (Folic Acid) 1 mg DAILY PO Last administered on 12/23/16 08:29; Start 12/22/16 at 15:00 Hydrochlorothiazide (Hydrodiuril) 25 mg DAILY PO Last administered on 08:30; Start 12/22/16 at 15:00 Lisinopril (Prinivil) 20 mg DAILY PO Last administered on 12/23/16 08:30; Start 12/22/16 at 15:00 Metoprolol Tartrate (Lopressor) 50 mg DAILY PO Last administered on 12/23/16 08:31; Start 12/22/16 at 15:00 Nicotine (Nicoderm Cq 14mg) 1 patch PRN DAILY PRN TD SMOKING CESSATION Last administered on 12/23/16 08:31; Start 12/22/16 at 13:30 Pantoprazole Sodium (Protonix Vial) 80 mg 1X ONCE IVP Last administered on 10:28; Start 12/22/16 at 10:30; Stop 12/22/16 at 10:31; Status DC Pantoprazole Sodium 80 mg/ Sodium Chloride 100 ml @ 10 mls/hr Q10H IV Last administered on 12/23/16 01:31; Start 12/22/16 at 11:00 Sodium Chloride 1,000 ml @ 100 mls/hr Q10H IV ; Start 12/22/16 at 15:00 Vitals/I & O Vital Sign - Last 24 Hours 12/22/16 12/22/16 12/22/16 12/22/16 09:30 09:40 10:44 11:04 Temp 99.1 99.1 Pulse 80 81 Resp 17 17 15 B/P (MAP) 159/80 (106) 157/105 (122) Pulse Ox 97 97 100 O2 Delivery Room Air Room Air Room Air Room Air 12/22/16 12/22/16 12/22/16 12/22/16 12:15 13:06 14:53 14:54 Pulse 81 81 B/P (MAP) 157/105 157/105 Pulse Ox 100 100 O2 Delivery Room Air Room Air 12/22/16 12/22/16 12/22/16 12/22/16 14:57 19:52 20:00 23:37 Temp 98.8 98.8 99.2 98.8 98.8 99.2 Pulse 87 89 79 Resp 14 20 20 B/P (MAP) 162/98 (119) 140/ 125/84 (98) Pulse Ox 100 98 96 O2 Delivery Room Air Room Air Room Air Room Air 12/23/16 12/23/16 12/23/16 12/23/16 00:21 03:00 07:00 08:30 Temp 99.0 98.6 99.0 98.6 Pulse 87 90 90 Resp 20 20 B/P (MAP) 100/81 (87) 138/98 (111) 138/98 Pulse Ox 96 98 98 O2 Delivery Room Air Room Air Room Air 12/23/16 12/23/16 08:31 08:32 Pulse 90 B/P (MAP) 138/98 O2 Delivery Room Air Intake and Output 12/22/16 12/22/16 12/23/16 15:00 23:00 07:00 Intake Total 600 ml 670 ml Output Total 1700 ml 1100 ml Balance -1100 ml -430 ml MIGUEL GUZMAN MD Dec 23, 2016 09:26
[2016-12-23] MEDS ORDERED: POTASSIUM CHLORIDE 20 MEQ TABLET.ER. PO ONE ×2 (09:30→12:00)
[2016-12-23 11:00] VITALS: BP 115/78
--- NOTE | 2016-12-23 12:02 | PDOC ---
Subjective: Subjective: Had some bleeding this morning, seems slowing. Still occasional right-sided cramping. Worried w/ ongoing symptoms. Drinking clears. Objective: Vital Signs: Vital Signs Date Time Temp Pulse Resp B/P (MAP) Pulse Ox O2 Delivery O2 Flow Rate FiO2 12/23/16 11:00 98.8 73 20 115/78 (90) 99 Room Air 98.8 Labs: Laboratory Tests Test 12/22/16 14:00 12/22/16 20:50 12/23/16 04:05 12/23/16 09:00 Hemoglobin 13.0 g/dL 12.7 g/dL 13.1 g/dL 12.2 g/dL Troponin I Quantitative < 0.017 ng/mL < 0.017 ng/mL White Blood Count 13.1 x10^3/uL Red Blood Count 4.35 x10^6/uL Hematocrit 38.7 % Mean Corpuscular Volume 89 fL Mean Corpuscular Hemoglobin 30 pg Mean Corpuscular Hemoglobin Concent 34 g/dL Red Cell Distribution Width 13.3 % Platelet Count 302 x10^3/uL Neutrophils (%) (Auto) 65 % Lymphocytes (%) (Auto) 28 % Monocytes (%) (Auto) 5 % Eosinophils (%) (Auto) 1 % Basophils (%) (Auto) 0 % Neutrophils # (Auto) 8.6 x10^3uL Lymphocytes # (Auto) 3.7 x10^3/uL Monocytes # (Auto) 0.7 x10^3/uL Eosinophils # (Auto) 0.2 x10^3/uL Basophils # (Auto) 0.0 x10^3/uL Sodium Level 139 mmol/L Potassium Level 3.3 mmol/L Chloride Level 100 mmol/L Carbon Dioxide Level 25 mmol/L Anion Gap 14 Blood Urea Nitrogen 7 mg/dL Creatinine 1.2 mg/dL Estimated GFR (Cockcroft-Gault) 56.2 Glucose Level 121 mg/dL Calcium Level 9.3 mg/dL Gamma Glutamyl Transpeptidase 49 U/L PE: GEN: NAD LUNGS: CTAB HEART: RRR ABD: NABS, S/ND/NT NEURO/PSYCH: A & O 3 A/P: Rectal bleeding -slowing w/ normal Hgb -recent colonoscopy w/ Dr. Rahman Abd cramping, right-sided -CT unrevealing -- Will review w/ Dr. Campbell re: any plans for endoscopy or further imaging. Will stop PPI drip since tolerating clears. JUHI CALHOUN Dec 23, 2016 12:01
[2016-12-23] MEDS: PANTOPRAZOLE 40 MG TABLET.DR. PO SCH (13:05)
[2016-12-23] MEDS: CETIRIZINE HCL 10 MG TABLET. PO SCH (13:05)
[2016-12-23 15:00] VITALS: BP 140/88
[2016-12-23 19:00] VITALS: BP 114/60
[2016-12-23 22:59] VITALS: BP 100/68
[2016-12-24 03:42] VITALS: BP 114/74
[2016-12-24] MEDS: ONDANSETRON PF 4 MG/2 ML VIAL. IV PRN (04:14)
[2016-12-24] MEDS: MORPHINE SULFATE 4 MG/ML DISP.SYRIN. IV PRN ×2 (04:15→08:52)
[2016-12-24 05:23] LABS: BASO % 0 % (0-3); EOS % 2 % (0-3); HEMATOCRIT 36.3 % (36.0-47.0); HEMOGLOBIN 12.2 g/dL (12.0-15.5); LYMPH # 2.2 x10^3/uL (1.0-4.8); LYMPH % 22 % (24-48); MEAN CORPUSCULAR HEMOGLOBIN 30 pg (25-35); MEAN CORPUSCULAR HGB CONC 34 g/dL (31-37); MEAN CORPUSCULAR VOLUME 90 fL (79-100); MONO % 6 % (0-9); NEUT % 69 % (31-73); PLATELET COUNT 247 x10^3/uL (140-400); RED BLOOD COUNT 4.05 x10^6/uL (3.50-5.40); RED CELL DISTRIBUTION WIDTH 13.4 % (11.5-14.5); WHITE BLOOD COUNT 9.9 x10^3/uL (4.0-11.0)
[2016-12-24 05:47] LABS: CALCIUM 8.6 mg/dL (8.5-10.1); GFR 69.4; POTASSIUM 3.2 mmol/L (3.5-5.1)
[2016-12-24 07:00] VITALS: BP 111/76
[2016-12-24] MEDS: IV NORMAL SALINE 1000ML BAG 1,000 ML IV SCH (07:00)
[2016-12-24] MEDS: PANTOPRAZOLE 40 MG TABLET.DR. PO SCH (08:41)
[2016-12-24] MEDS: hydroCHLOROthiazide 25 MG TABLET PO SCH (08:43)
[2016-12-24] MEDS: CETIRIZINE HCL 10 MG TABLET. PO SCH (08:43)
[2016-12-24] MEDS: FOLIC ACID 1 MG TABLET. PO SCH (08:43)
[2016-12-24] MEDS: METOPROLOL TART IMMED RELEASE 50 MG TABLET. PO SCH (08:44)
[2016-12-24] MEDS: LISINOPRIL 20 MG TABLET PO SCH (08:44)
[2016-12-24] MEDS ORDERED: POTASSIUM CHLORIDE 20 MEQ TABLET.ER. PO ONE ×2 (09:15→12:15)
[2016-12-24] MEDS ORDERED: DICYCLOMINE HCL 10 MG CAPSULE PO ONE (10:15)
[2016-12-24] MEDS ORDERED: DICY10CA53 PO (10:19)
[2016-12-24] MEDS ORDERED: PANT40GR PO (10:19)
--- NOTE | 2016-12-24 10:22 | PDOC ---
PROGRESS NOTES Subjective Subjective abd bloating Objective Objective Vital Signs Date Time Temp Pulse Resp B/P (MAP) Pulse Ox O2 Delivery O2 Flow Rate FiO2 12/24/16 10:06 Room Air 12/24/16 08:44 86 111/76 12/24/16 07:00 98.1 20 95 98.1 Intake and Output 12/24/16 07:00 Intake Total 500 ml Balance 500 ml Intake Oral 500 ml # Voids 4 Physical Exam Abdomen: Normal bowel sounds, Soft Heart: Regular rate, Normal S1, Normal S2 Extremities: No clubbing General: Alert HEENT: Atraumatic Lungs: Clear to auscultation MUSCULOSKELETAL: No swelling Neck: Supple Neuro: Normal speech Psych/Mental Status: Mood NL Skin: No breakdown Assessment Assessment FINAL IMPRESSION: 1. Lower gastrointestinal bleed.? Ischemic collitis 2. Possible bleed secondary to diverticular bleed vs internal hemorrhoids. 3. The patient is on ibuprofen for arthritis. 4. The patient has a history of EGD and colonoscopy within last 6 months. 5. Urinary tract infection. PLAN: urine c/s neg Hb stable at 13. spoke with GI. home later today replace potassium full liquid diet. d/c antibiotics avoid NSAIDS add bentyl+protonix Problems: Comment Review of Relevant I have reviewed the following items jessica (where applicable) has been applied. Labs Laboratory Tests Test 12/23/16 13:45 12/23/16 21:00 12/24/16 04:18 12/24/16 08:45 Hemoglobin 12.1 g/dL (12.0-15.5) 11.9 g/dL (12.0-15.5) 12.2 g/dL (12.0-15.5) 12.3 g/dL (12.0-15.5) White Blood Count 9.9 x10^3/uL (4.0-11.0) Red Blood Count 4.05 x10^6/uL (3.50-5.40) Hematocrit 36.3 % (36.0-47.0) Mean Corpuscular Volume 90 fL (79-100) Mean Corpuscular Hemoglobin 30 pg (25-35) Mean Corpuscular Hemoglobin Concent 34 g/dL (31-37) Red Cell Distribution Width 13.4 % (11.5-14.5) Platelet Count 247 x10^3/uL (140-400) Neutrophils (%) (Auto) 69 % (31-73) Lymphocytes (%) (Auto) 22 % (24-48) Monocytes (%) (Auto) 6 % (0-9) Eosinophils (%) (Auto) 2 % (0-3) Basophils (%) (Auto) 0 % (0-3) Neutrophils # (Auto) 6.8 x10^3uL (1.8-7.7) Lymphocytes # (Auto) 2.2 x10^3/uL (1.0-4.8) Monocytes # (Auto) 0.6 x10^3/uL (0.0-1.1) Eosinophils # (Auto) 0.2 x10^3/uL (0.0-0.7) Basophils # (Auto) 0.0 x10^3/uL (0.0-0.2) Sodium Level 140 mmol/L (136-145) Potassium Level 3.2 mmol/L (3.5-5.1) Chloride Level 101 mmol/L (98-107) Carbon Dioxide Level 28 mmol/L (21-32) Anion Gap 11 (6-14) Blood Urea Nitrogen 8 mg/dL (7-20) Creatinine 1.0 mg/dL (0.6-1.0) Estimated GFR (Cockcroft-Gault) 69.4 Glucose Level 104 mg/dL (70-99) Calcium Level 8.6 mg/dL (8.5-10.1) Microbiology 12/22/16 Urine Culture - Preliminary, Resulted 12/22/16 Urine Culture Result 1 (RAQUEL) - Preliminary, Resulted Medications Current Medications Morphine Sulfate 2 mg PRN Q2HR PRN IV PAIN Last administered on 12/24/16 08:52 ; Start 12/23/16 at 16:00 Ondansetron HCl (Zofran) 4 mg PRN Q8HRS PRN IV NAUSEA/VOMITING Last administered on 12/24/16 04:14; Start 12/23/16 at 16:00 Pantoprazole Sodium (Protonix) 40 mg DAILYAC PO Last administered on 12/24/16 08:41; Start 12/23/16 at 12:30 Potassium Chloride (Klor-Con) 20 meq 1X ONCE PO ; Start 12/23/16 at 12:00; Stop 8/21/17 at 12:01; Status DC Potassium Chloride (Klor-Con) 20 meq 1X ONCE PO ; Start 12/24/16 at 12:15; Stop 12/24/16 at 12:16 Potassium Chloride (Klor-Con) 40 meq 1X ONCE PO ; Start 12/24/16 at 09:15; Stop 12/24/16 at 09:16; Status DC Vitals/I & O Vital Sign - Last 24 Hours 12/23/16 12/23/16 12/23/16 12/23/16 11:00 15:00 16:29 19:00 Temp 98.8 98.5 98.5 98.8 98.5 98.5 Pulse 73 74 89 Resp 20 20 18 B/P (MAP) 115/78 (90) 140/88 (105) 114/60 (78) Pulse Ox 99 97 97 O2 Delivery Room Air Room Air Room Air Room Air 12/23/16 12/23/16 12/23/16 12/24/16 21:33 22:59 23:31 03:42 Temp 98.4 98.7 98.4 98.7 Pulse 89 82 Resp 18 18 B/P (MAP) 100/68 (79) 114/74 (87) Pulse Ox 97 97 97 96 O2 Delivery Room Air Room Air Room Air 12/24/16 12/24/16 12/24/16 12/24/16 04:15 04:46 07:00 08:44 Temp 98.1 98.1 Pulse 86 86 Resp 20 18 20 B/P (MAP) 111/76 (88) 111/76 Pulse Ox 96 95 O2 Delivery Room Air Room Air 12/24/16 12/24/16 12/24/16 08:44 08:52 10:06 Pulse 86 B/P (MAP) 111/76 O2 Delivery Room Air Room Air Intake and Output 12/23/16 12/23/16 12/24/16 15:00 23:00 07:00 Intake Total 500 ml 0 ml Balance 500 ml 0 ml MIGUEL GUZMAN MD Dec 24, 2016 10:22
--- NOTE | 2016-12-24 10:26 | PDOC ---
Provider Note Provider Note Discharge summary dictated. #[id number] MIGUEL GUZMAN MD Dec 24, 2016 10:26
[2016-12-24 11:00] VITALS: BP 118/84
--- NOTE | 2016-12-24 11:32 | DS ---
DATE OF DISCHARGE: 12/24/2016 REASON FOR ADMISSION TO THE HOSPITAL: Blood per rectum, abdominal pain, bloating. CONSULTATIONS: Dr. Campbell, GI. PROCEDURES DONE: CT of the abdomen and pelvis. COMPLICATIONS NOTED: None. HOSPITAL COURSE: Ro Dutta is a 56-year-old female with history of arthritis. She is on methotrexate and ibuprofen lately. She was having rectal bleed, came to the Emergency Room. The patient had seen GI; had EGD, colonoscopies 6 months ago; was told, no major problems. The patient had a Hemoccult that was positive. CT scan showed some few diverticulosis. Her hemoglobin remained stable. No more bleeding noted. CT of the abdomen and pelvis showed some fatty liver. The patient was started on clear liquid diet. She also had a urine that showed leukocytes, nitrites positive, suggesting of UTI. Started on Rocephin, added Flagyl, and the urine cultures came back negative. Antibiotics were started. On the whole, patient was feeling better. It was felt that could be secondary to abdominal pain, ischemic colitis, and the patient was recommended about stopping smoking, diet and exercise. The patient was discharged on Bentyl for bloating and gas, and Protonix, and recommended to avoid nonsteroidals at this point. FINAL DIAGNOSES: 1. Abdominal pain and lower gastrointestinal bleed, secondary to ischemic colitis. 2. History of arthritis. 3. Hypertension. 4. Hypokalemia, replaced. DISPOSITION: Home. DISCHARGE MEDICATIONS: See MRAD for discharge medications. MIGUEL GUZMAN MD DR: AMY/ishmael JOB#: [id number] / [id number]
[2016-12-24 14:40] VITALS: BP 115/77
== END 2016-12-24 15:10 | disposition home or self-care (01) | DRG 394 ==
LOC: ER 07:09 → 6 SOUTH 08:00
PROVIDERS: ADMIT Internal Medicine; ATTEND Internal Medicine
DX: K55.9 Vascular disorder of intestine, unspecified (principal); N39.0 Urinary tract infection, site not specified; K76.0 Fatty (change of) liver, not elsewhere classified; I10 Essential (primary) hypertension; E87.6 Hypokalemia; K21.9 Gastro-esophageal reflux disease without esophagitis; M06.9 Rheumatoid arthritis, unspecified; R74.8 Abnormal levels of other serum enzymes; K57.30 Diverticulosis of large intestine without perforation or abscess without bleeding; Z82.49 Family history of ischemic heart disease and other diseases of the circulatory system
CPT/HCPCS: 36415; 70450; 71010; 74177; 80048; 80053; 80076; 80307; 81001; 82274; 82977; 83880; 84484; 85018; 85025; 85610; 85730; 86850; 86900; 86901; 87086; 93005; 96361; 96374; 96375; C9113; G0480; J0360; J0696; J2270; J2405; J3490; J7030; Q9967; S0028; 99285-25; G0479

== ENCOUNTER → 2017-01-21 | Day surgery (SDC) | payer MEDICARE, OTHER ==
[~2017-01-21] MED LIST changes: +ATOR20TA58 PO; +DICY10CA53 PO; +HYDR-2758 PO; +IV RINGERS,LACTATED 1000ML 1,000 ML IV SCH; +PANT40GR PO; +PARO10TA57 PO; +PROPOFOL 20 ML IV ONE; +TIZA4TAB8 PO
--- NOTE | 2017-01-21 10:48 | PDOC1 ---
HISTORY & PHYSICAL H&P Ro Dutta 1960 01/15/2017 01:20 PM 05/05 [employer] [facility] [address] [place] [address]. [phone] Patient: Ro Dutta Date of : 1960 Date: 01/15/2017 1:20 PM Visit Type: Office Visit This 56 year old female presents for GI bleeding. History of Present Illness: 1. GI bleeding Quality: BRBPR w/ bowel movement and BRBPR w/out bowel movement. Associated symptoms include abdominal pain. Pertinent negatives include weight loss. Additional information: Has been admitted with gi bleeding. Had fever abdominal pain and rectal bleeding. CT abd diverticulosis. No EGD or Colonoscopy. Had been admitted to [facility]. INTAKE COMMENTS: Intake Comments: Nurse Note: the pt is here today after being in the hospital for a GI bleed. The pt states that she was bloated and having stomach issues. The pt had a colonoscopy in 2015 and it was normal. The pt was taking Ranitidine and it stopped working, the pt is currently taking bentyl and Protonix and it does help alot better. PROBLEM LIST: Problem Description Onset Date Chronic Notes Encounter for screening colonoscopy 01/12/2016 Hypertension 01/17/2014 N Polyarthralgia 03/07/2015 Infected sebaceous cyst of skin 01/31/2016 Obesity, morbid 01/17/2014 Psoriatic arthritis 06/06/2015 Bilateral low back pain without sciatica 06/06/2015 Leukocytosis, unspecified type 01/12/2016 PAST MEDICAL/SURGICAL HISTORY (Detailed) Disease/disorder Onset Date Management Date Comments Hypertension DIAGNOSTICS HISTORY: Test Ordered Interpretation Result completed Colonoscopy 01/12/2016 normal 02/12/2016 Test Ordered Ordering Comments Modifier Colonoscopy 01/12/2016 Medications (Active): Started Medication Directions Instruction Stopped 08/30/2016 atorvastatin 20 mg tablet take 1 tablet by oral route every day 12/31/2016 Bentyl 10 mg capsule take 1 capsule by oral route 2 times every day 12/31/2016 folic acid 1 mg tablet TAKE 1 TABLET BY MOUTH EVERY DAY 12/26/2016 hydrocodone 5 mg-acetaminophen 325 mg tablet TAKE I TAB PO QID PRN 12/26/2016 lisinopril 20 mg tablet TAKE 1 TABLET BY ORAL ROUTE EVERY DAY 12/17/2016 methotrexate sodium 2.5 mg tablet take 7 Tablet by Oral route every Friday12/31/2016 metoprolol tartrate 50 mg tablet take 1 tablet by oral route 2 times every day with meals 08/29/2016 Paxil 10 mg tablet take 1 tablet by oral route every day 12/31/2016 Protonix 40 mg granules delayed-release packet take 1 packet by oral route every day mixed in 1 teaspoonful of applesauce or apple juice 10/01/2016 RANITIDINE 150MG TABLETS TAKE 1 TABLET BY MOUTH DAILY 12/17/2016 Zanaflex 4 mg tablet take 1 tablet by oral route every 8 hours as needed not to exceed 3 doses in 24 hours Allergies: Ingredient Reaction Medication Name Comment NO KNOWN ALLERGIES REVIEW OF SYSTEMS System Neg/Pos Details Constitutional Negative Chills, fever, malaise and weight loss. ENMT Negative Sore throat. Eyes Negative Double vision. Respiratory Negative Dyspnea and wheezing. Cardio Negative Chest pain and irregular heartbeat/palpitations. GI Positive Abdominal pain, See HPI. GI Negative See HPI. Negative Dysuria and hematuria. Endocrine Negative Cold intolerance and heat intolerance. Psych Negative Anxiety. Integumentary Negative Hives and rash. MS Negative Joint pain. Jackson/Lymph Negative Easy bleeding and easy bruising. Allergic/Immuno Negative Food allergies. VITAL SIGNS Time BP mm/Hg Pulse /min Resp /min Temp F Ht ft Ht in Ht cm Wt lb Wt kg BMI kg/ m2 BSA m2 O2 Sat% 1:27 PM 142/88 89 98.2 5.0 8.00 172.72 304.20 137.983 46.25 98 Time Measured by 1:27 PM [facility] PHYSICAL EXAM: Exam Findings Details Constitutional Normal Well developed. Eyes Normal Conjunctiva - Right: Normal, Left: Normal. Sclera - Right: Normal, Left: Normal. Nasopharynx Normal Lips/teeth/gums - Normal. Neck Exam Normal Inspection - Normal. Thyroid gland - Normal. Respiratory Normal Inspection - Normal. Auscultation - Normal. Cardiovascular Normal Regular rate and rhythm. No murmurs, gallops, or rubs. Vascular Normal Pulses - Carotids: Normal, Femoral: Normal, Dorsalis pedis: Normal. Abdomen Normal Inspection - Normal. Anterior palpation - No guarding. No abdominal tenderness. No hepatic enlargement. No splenic enlargement. No hernia. No Ascites. Skin Normal Inspection - Normal. Extremity Normal No edema. Psychiatric Normal Oriented to time, place, person, and situation. Appropriate mood and effect. Assessment/Plan # Detail Type Description 1. Assessment Gastrointestinal hemorrhage, unspecified gastrointestinal hemorrhage type (K92.2). Patient Plan schedule EGD at [facility] Plan Orders Further diagnostic evaluations ordered today include(s) EGD to be performed today. She is to schedule a follow-up visit with Adonay Rahman MD upon completion of work-up Electronically signed by: Adonay Rahman MD 01/15/2017 03:46 PM Document generated by: Adonay Rahman 01/15/2017 03:46 PM Sahra Blackwell MD, [facility]; Reynold Berry MD Internal Medicine; Kushal Sahu MD, Internal Medicine; Levi Rahman MD Internal Medicine; Adonay Rahman MD, Gastroenterology; Zachery Naranjo MD, Rheumatology, S. Modesto Osullivan, Physical Medicine/Rehab JMaura Alejandre APRN ------ 01/21/17 Patient seen and examined. No change in H&P ADONAY RAHMAN MD Jan 21, 2017 10:48
[2017-01-21 12:00] VITALS: BP 149/76
== END | disposition home or self-care (01) ==
LOC: ENDOS 10:05
PROVIDERS: ATTEND Internal Medicine Gastroenterology
DX: K92.2 Gastrointestinal hemorrhage, unspecified (principal); E78.00 Pure hypercholesterolemia, unspecified; I10 Essential (primary) hypertension; E66.9 Obesity, unspecified; Z68.43 Body mass index [BMI] 50.0-59.9, adult; M17.0 Bilateral primary osteoarthritis of knee; F17.200 Nicotine dependence, unspecified, uncomplicated; Z98.51 Tubal ligation status; Z87.440 Personal history of urinary (tract) infections; Z72.0 Tobacco use; Z82.49 Family history of ischemic heart disease and other diseases of the circulatory system; Z86.69 Personal history of other diseases of the nervous system and sense organs
CPT/HCPCS: 43235; J2704

== ENCOUNTER 2017-05-12 09:47 | Emergency (ER) | payer MEDICARE, OTHER ==
[2017-05-12] MEDS ORDERED: ONDANSETRON PF 4 MG/2 ML VIAL. (10:09)
[2017-05-12] MEDS ORDERED: 0.9 % SODIUM CHLORIDE 10 ML DISP.SYRIN. IV (10:15)
[2017-05-12] MEDS ORDERED: ONDANSETRON PF 4 MG/2 ML VIAL. IV (10:15)
[2017-05-12] MEDS: ONDANSETRON PF 4 MG/2 ML VIAL. IV ×2 (10:21→13:11)
[2017-05-12 10:27] LABS: ADD MAN DIFF? NO
[2017-05-12 10:32] LABS: BASO % 0 % (0-3); EOS # 0.1 x10^3/uL (0.0-0.7); EOS % 1 % (0-3); HEMATOCRIT 42.4 % (36.0-47.0); HEMOGLOBIN 13.6 g/dL (12.0-15.5); LYMPH # 3.6 x10^3/uL (1.0-4.8); LYMPH % 33 % (24-48); MEAN CORPUSCULAR HEMOGLOBIN 29 pg (25-35); MEAN CORPUSCULAR HGB CONC 32 g/dL (31-37); MEAN CORPUSCULAR VOLUME 91 fL (79-100); MONO # 0.6 x10^3/uL (0.0-1.1); MONO % 5 % (0-9); NEUT # 6.7 x10^3uL (1.8-7.7); NEUT % 61 % (31-73); PLATELET COUNT 286 x10^3/uL (140-400); RED BLOOD COUNT 4.66 x10^6/uL (3.50-5.40); RED CELL DISTRIBUTION WIDTH 14.7 % (11.5-14.5); WHITE BLOOD COUNT 10.9 x10^3/uL (4.0-11.0)
[2017-05-12] MEDS: MORPHINE SULFATE 4 MG/ML DISP.SYRIN. IV/SQ ×2 (10:34→13:12)
[2017-05-12] MEDS: IV NORMAL SALINE 1000ML BAG 1,000 ML IV (10:37)
[2017-05-12 10:43] LABS: ANION GAP 12 (6-14); BLOOD UREA NITROGEN 12 mg/dL (7-20); CALCIUM 9.2 mg/dL (8.5-10.1); CARBON DIOXIDE 27 mmol/L (21-32); CHLORIDE 103 mmol/L (98-107); CREATININE 1.1 mg/dL (0.6-1.0); GFR 61.9; GLUCOSE 140 mg/dL (70-99); POTASSIUM 3.2 mmol/L (3.5-5.1); SODIUM 142 mmol/L (136-145)
[2017-05-12 10:49] LABS: ALK PHOS 131 U/L (46-116); ALT (SGPT) 35 U/L (14-59); AST (SGOT) 63 U/L (15-37); DIRECT BILIRUBIN 0.3 mg/dL (0.0-0.2); LIPASE 130 U/L (73-393); TOTAL BILIRUBIN 0.5 mg/dL (0.2-1.0); TOTAL PROTEIN 8.2 g/dL (6.4-8.2)
[2017-05-12 10:51] LABS: TROPONINI < 0.017 ng/mL (0.000-0.055)
[2017-05-12 10:56] LABS: CKMB INDEX 0.5 % (0-4); CKMB MASS 1.5 ng/mL (0.0-3.6); CREATINE KINASE 316 U/L (26-192)
[2017-05-12 13:17] LABS: BILIRUBIN,URINE NEGATIVE (NEG); CLARITY,URINE CLEAR; COLOR,URINE YELLOW; GLUCOSE,URINE NEGATIVE (NEG); NITRITE,URINE NEGATIVE (NEG); PROTEIN,URINE NEGATIVE (NEG-TRACE)
[2017-05-12 13:33] LABS: BACTERIA,URINE FEW /HPF (0-FEW); SQUAMOUS EPITHELIAL CELL,UR MANY /LPF
[2017-05-12 13:34] LABS: RBC,URINE 0 /HPF (0-2)
== END 2017-05-12 13:40 | disposition home or self-care (01) ==
LOC: ER 09:47
DX: E86.0 Dehydration (principal); R11.2 Nausea with vomiting, unspecified; B34.9 Viral infection, unspecified; R10.13 Epigastric pain; I10 Essential (primary) hypertension; K21.9 Gastro-esophageal reflux disease without esophagitis; M06.9 Rheumatoid arthritis, unspecified
CPT/HCPCS: 36415; 80048; 80076; 81001; 82553; 83690; 84484; 85025; 93005; 96361; 96374; 96375; 96376; 99285-25; J2270; J2405; J7030

== ENCOUNTER 2017-05-19 23:48 | Inpatient (IN) | payer MEDICARE, OTHER ==
[2017-05-20] MEDS: IV NORMAL SALINE 1000ML BAG 1,000 ML IV ×4 (00:41→18:36)
[2017-05-20] MEDS: ONDANSETRON PF 4 MG/2 ML VIAL. IV ×3 (00:41→18:36)
[2017-05-20] MEDS: fentaNYL PF VIAL 100 MCG/2 ML VIAL IV ×6 (00:42→21:42)
[2017-05-20 00:52] LABS: ADD MAN DIFF? NO
[2017-05-20 00:55] LABS: BASO % 0 % (0-3); EOS # 0.1 x10^3/uL (0.0-0.7); EOS % 1 % (0-3); HEMATOCRIT 41.9 % (36.0-47.0); HEMOGLOBIN 13.7 g/dL (12.0-15.5); LYMPH # 2.2 x10^3/uL (1.0-4.8); LYMPH % 24 % (24-48); MEAN CORPUSCULAR HEMOGLOBIN 30 pg (25-35); MEAN CORPUSCULAR HGB CONC 33 g/dL (31-37); MEAN CORPUSCULAR VOLUME 91 fL (79-100); MONO # 0.6 x10^3/uL (0.0-1.1); MONO % 7 % (0-9); NEUT # 6.3 x10^3uL (1.8-7.7); NEUT % 68 % (31-73); PLATELET COUNT 264 x10^3/uL (140-400); RED BLOOD COUNT 4.61 x10^6/uL (3.50-5.40); RED CELL DISTRIBUTION WIDTH 14.4 % (11.5-14.5); WHITE BLOOD COUNT 9.2 x10^3/uL (4.0-11.0)
[2017-05-20 01:05] LABS: ANION GAP 11 (6-14); BLOOD UREA NITROGEN 7 mg/dL (7-20); BUN/CREATININE RATIO 8 (6-20); CALCIUM 9.2 mg/dL (8.5-10.1); CARBON DIOXIDE 29 mmol/L (21-32); CHLORIDE 104 mmol/L (98-107); CREATININE 0.9 mg/dL (0.6-1.0); GFR 78.1; GLUCOSE 114 mg/dL (70-99); POTASSIUM 3.9 mmol/L (3.5-5.1); SODIUM 144 mmol/L (136-145)
[2017-05-20 01:11] LABS: ALBUMIN 3.8 g/dL (3.4-5.0); ALBUMIN/GLOBULIN RATIO 0.9 (1.0-1.7); ALK PHOS 239 U/L (46-116); ALT (SGPT) 222 U/L (14-59); AST (SGOT) 390 U/L (15-37); LIPASE 190 U/L (73-393); TOTAL BILIRUBIN 0.9 mg/dL (0.2-1.0); TOTAL PROTEIN 8.1 g/dL (6.4-8.2)
[2017-05-20 01:13] LABS: TROPONINI < 0.017 ng/mL (0.000-0.055)
[2017-05-20] MEDS ORDERED: ACETAMINOPHEN 325 MG TABLET. PO (02:30)
[2017-05-20] MEDS: MORPHINE SULFATE 2 MG/ML DISP.SYRIN. IV ×3 (04:14→08:54)
[2017-05-20] MEDS ORDERED: fentaNYL PF VIAL 100 MCG/2 ML VIAL IV (12:15)
[2017-05-20] MEDS: LISINOPRIL 20 MG TABLET PO (12:33)
[2017-05-20] MEDS: PANTOPRAZOLE 40 MG TABLET.DR. PO (12:33)
[2017-05-20] MEDS: METOPROLOL TART IMMED RELEASE 50 MG TABLET. PO (12:36)
[2017-05-20] MEDS: NICOTINE 14MG PATCH. TD (16:02)
[2017-05-20] MEDS ORDERED: SUCRALFATE 1 GM/10 ML ORAL.SUSP. PEG (18:20)
[2017-05-20] MEDS: SUCRALFATE 1 GM TABLET. PO (18:36)
[2017-05-21 04:33] LABS: ADD MAN DIFF? NO
[2017-05-21 04:36] LABS: BASO % 0 % (0-3); EOS # 0.2 x10^3/uL (0.0-0.7); EOS % 2 % (0-3); HEMATOCRIT 38.4 % (36.0-47.0); HEMOGLOBIN 12.4 g/dL (12.0-15.5); LYMPH # 2.2 x10^3/uL (1.0-4.8); LYMPH % 30 % (24-48); MEAN CORPUSCULAR HEMOGLOBIN 29 pg (25-35); MEAN CORPUSCULAR HGB CONC 32 g/dL (31-37); MEAN CORPUSCULAR VOLUME 91 fL (79-100); MONO # 0.4 x10^3/uL (0.0-1.1); MONO % 5 % (0-9); NEUT # 4.7 x10^3uL (1.8-7.7); NEUT % 63 % (31-73); PLATELET COUNT 242 x10^3/uL (140-400); RED BLOOD COUNT 4.21 x10^6/uL (3.50-5.40); RED CELL DISTRIBUTION WIDTH 14.5 % (11.5-14.5); WHITE BLOOD COUNT 7.5 x10^3/uL (4.0-11.0)
[2017-05-21 04:59] LABS: ALBUMIN 3.3 g/dL (3.4-5.0); ALBUMIN/GLOBULIN RATIO 0.8 (1.0-1.7); ALK PHOS 308 U/L (46-116); ALT (SGPT) 316 U/L (14-59); AMYLASE 33 U/L (25-115); ANION GAP 9 (6-14); AST (SGOT) 252 U/L (15-37); BLOOD UREA NITROGEN 3 mg/dL (7-20); BUN/CREATININE RATIO 4 (6-20); CALCIUM 8.5 mg/dL (8.5-10.1); CARBON DIOXIDE 26 mmol/L (21-32); CHLORIDE 106 mmol/L (98-107); CREATININE 0.8 mg/dL (0.6-1.0); DIRECT BILIRUBIN 0.2 mg/dL (0.0-0.2); GFR 89.5; GLUCOSE 112 mg/dL (70-99); LIPASE 114 U/L (73-393); POTASSIUM 3.6 mmol/L (3.5-5.1); SODIUM 141 mmol/L (136-145); TOTAL BILIRUBIN 0.4 mg/dL (0.2-1.0); TOTAL PROTEIN 7.2 g/dL (6.4-8.2)
[2017-05-21] MEDS: fentaNYL PF VIAL 100 MCG/2 ML VIAL IV ×3 (05:00→16:05)
[2017-05-21] MEDS: NICOTINE 14MG PATCH. TD (09:00)
[2017-05-21] MEDS: SUCRALFATE 1 GM TABLET. PO ×3 (10:43→16:06)
[2017-05-21] MEDS: METOPROLOL TART IMMED RELEASE 50 MG TABLET. PO (10:43)
[2017-05-21] MEDS: LISINOPRIL 20 MG TABLET PO (10:44)
[2017-05-21] MEDS: PANTOPRAZOLE 40 MG TABLET.DR. PO (10:44)
[2017-05-21] MEDS: MAGNESIUM HYDROXIDE 2,400 MG/30 ML ORAL.SUSP. PO (12:57)
[2017-05-21] MEDS: ONDANSETRON PF 4 MG/2 ML VIAL. IV (19:54)
[2017-05-21] MEDS: HYDROmorphone 2 MG/ML VIAL IV (19:54)
[2017-05-21] MEDS: oxyCODONE/APAP 10/325 1 TAB TABLET PO (21:18)
[2017-05-22] MEDS: hydrALAZINE 20 MG/ML VIAL. IVP (00:09)
[2017-05-22] MEDS: cloNIDine HCL 0.1 MG TABLET PO (01:55)
[2017-05-22 07:07] LABS: ALBUMIN 3.2 g/dL (3.4-5.0); ALK PHOS 385 U/L (46-116); ALT (SGPT) 311 U/L (14-59); AST (SGOT) 303 U/L (15-37); DIRECT BILIRUBIN 0.3 mg/dL (0.0-0.2); TOTAL BILIRUBIN 0.5 mg/dL (0.2-1.0)
[2017-05-22] MEDS: SUCRALFATE 1 GM TABLET. PO ×3 (08:25→17:14)
[2017-05-22] MEDS: LISINOPRIL 20 MG TABLET PO (08:27)
[2017-05-22] MEDS: oxyCODONE/APAP 10/325 1 TAB TABLET PO ×4 (08:27→18:24)
[2017-05-22] MEDS: METOPROLOL TART IMMED RELEASE 50 MG TABLET. PO (08:28)
[2017-05-22] MEDS: PANTOPRAZOLE 40 MG TABLET.DR. PO (08:28)
[2017-05-22] MEDS: ONDANSETRON PF 4 MG/2 ML VIAL. IV ×2 (08:40→17:14)
[2017-05-22] MEDS: NICOTINE 14MG PATCH. TD (11:12)
[2017-05-22] MEDS: CETIRIZINE HCL 10 MG TABLET. PO (21:57)
[2017-05-23 00:13] LABS: HCV ANTIBODY <0.1 s/co ratio (0.0-0.9); HEP A IGM ABDY Negative (Negative); HEP B SURFACE AG Negative (Negative)
[2017-05-23] MEDS: oxyCODONE/APAP 10/325 1 TAB TABLET PO (06:15)
[2017-05-23 07:29] LABS: ALBUMIN 3.3 g/dL (3.4-5.0); ALK PHOS 336 U/L (46-116); ALT (SGPT) 211 U/L (14-59); AST (SGOT) 82 U/L (15-37); DIRECT BILIRUBIN 0.2 mg/dL (0.0-0.2); TOTAL BILIRUBIN 0.5 mg/dL (0.2-1.0); TOTAL PROTEIN 7.1 g/dL (6.4-8.2)
[2017-05-23] MEDS: SUCRALFATE 1 GM TABLET. PO ×2 (07:57→11:30)
[2017-05-23] MEDS: CETIRIZINE HCL 10 MG TABLET. PO (07:57)
[2017-05-23] MEDS: PANTOPRAZOLE 40 MG TABLET.DR. PO (07:57)
[2017-05-23] MEDS: METOPROLOL TART IMMED RELEASE 50 MG TABLET. PO (07:58)
[2017-05-23] MEDS: LISINOPRIL 20 MG TABLET PO (07:58)
[2017-05-23] MEDS: NICOTINE 14MG PATCH. TD (07:59)
[2017-05-23] MEDS ORDERED: CETIRIZINE HCL 10 MG TABLET. PO (09:00)
== END 2017-05-23 12:24 | disposition home or self-care (01) | DRG 948 ==
LOC: ER 23:48 → ED HOLD 05-20 01:40 → 6 SOUTH 05-20 04:22
DX: R74.0 Nonspecific elevation of levels of transaminase and lactic acid dehydrogenase [LDH] (principal); L40.50 Arthropathic psoriasis, unspecified; Z68.41 Body mass index [BMI] 40.0-44.9, adult; N39.0 Urinary tract infection, site not specified; K83.4 Spasm of sphincter of Oddi; R10.9 Unspecified abdominal pain; E66.9 Obesity, unspecified; D25.9 Leiomyoma of uterus, unspecified; E78.5 Hyperlipidemia, unspecified; I10 Essential (primary) hypertension; K21.9 Gastro-esophageal reflux disease without esophagitis; R79.89 Other specified abnormal findings of blood chemistry; M19.90 Unspecified osteoarthritis, unspecified site; Z82.49 Family history of ischemic heart disease and other diseases of the circulatory system; Z90.49 Acquired absence of other specified parts of digestive tract; Z86.018 Personal history of other benign neoplasm
CPT/HCPCS: 36415; 74181; 78226; 80053; 80074; 80076; 82150; 82248; 83690; 84484; 85025; 93005; 96361; 96374; 96375; 96376; 99285-25; A9537; J0360; J1170; J2270; J2405; J3010; J7030

== ENCOUNTER → 2017-07-29 | Day surgery (SDC) | payer MEDICARE, OTHER ==
[~2017-07-29] MED LIST changes: -ATOR20TA58 PO; -CLIN150C14 PO; -DICY10CA53 PO; -FOLI1TAB16 PO; -GUAI-56 PO; -HYDR-2758 PO; -HYDR-2762 PO; -HYDR-971 PO; -HYDR25TA9 PO; -IBUP-1060 PO; +IV RINGERS,LACTATED 1000ML 1,000 ML IV; -IV RINGERS,LACTATED 1000ML 1,000 ML IV SCH; +LIDOCAINE 1% PF 2 ML VIAL. ID; -LISI-334 PO; -MELO7.5T29 PO; -METH2.5T PO; -METO50TA2 PO; +MORPHINE SULFATE 4 MG/ML DISP.SYRIN. IV; +ONDANSETRON PF 4 MG/2 ML VIAL. IV; -OXYC-323 PO; -PANT40GR PO; -PARO10TA57 PO; -PRED-220 PO; +PROCHLORPERAZINE 10 MG/2 ML VIAL. IV; -PROPOFOL 20 ML IV ONE; +PROPOFOL 40 ML IV; -RANI150T2 PO; -TIZA4TAB8 PO; -TRAMADOL; +fentaNYL PF VIAL 100 MCG/2 ML VIAL IV
== END | disposition home or self-care (01) ==
LOC: ENDOS 09:24
DX: R10.13 Epigastric pain (principal); E66.01 Morbid (severe) obesity due to excess calories; L40.50 Arthropathic psoriasis, unspecified; I10 Essential (primary) hypertension; I25.10 Atherosclerotic heart disease of native coronary artery without angina pectoris; I25.2 Old myocardial infarction; Z90.49 Acquired absence of other specified parts of digestive tract; Z79.82 Long term (current) use of aspirin; Z79.899 Other long term (current) drug therapy
CPT/HCPCS: 43235; J2704

== ENCOUNTER → 2017-08-04 | Outpatient (CLI) | payer MEDICARE, OTHER | END | disposition home or self-care (01) | LOC: NM 08:28 | DX: K30 Functional dyspepsia (principal); I10 Essential (primary) hypertension; Z87.891 Personal history of nicotine dependence | CPT/HCPCS: 78264; A9541 ==

== ENCOUNTER 2018-03-13 03:07 | Observation (INO) | payer MEDICARE, OTHER ==
[~2018-03-13] VITALS: Ht 180.3 cm; Wt 141.3 kg
[~2018-03-13 03:07] MED LIST changes: +ACET325T9 PO; +AMLO5TAB7 PO; +ASPI-482 PO; +ATOR20TA58 PO; +ATOR40TA59 PO; +CETI10TA22 PO; +CLIN150C14 PO; +CLOP75TA PO; +DICL100G18 TP; +DICY10CA53 PO; +FLUT16SP NS; +FOLI1TAB16 PO; +GUAI-56 PO; +HYDR-2758 PO; +HYDR-2762 PO; +HYDR-971 PO; +HYDR12.58 PO; +HYDR25TA9 PO; +IBUP-1060 PO; -IV RINGERS,LACTATED 1000ML 1,000 ML IV; -LIDOCAINE 1% PF 2 ML VIAL. ID; +LISI-334 PO; +LOSA1TAB22 PO; +LOSA1TAB25 PO; +LOSA25TA5 PO; +MELO7.5T29 PO; +METH2.5T PO; +METO50TA6 PO; -MORPHINE SULFATE 4 MG/ML DISP.SYRIN. IV; +NICO1PAT25 TP; +NITR0.4T SL; +ONDA4TAB10 PO; -ONDANSETRON PF 4 MG/2 ML VIAL. IV; +OXYC-323 PO; +OXYC10TA PO; +OXYC5CAP PO; +PANT20TA2 PO; +PANT40GR PO; +PARO10TA57 PO; +POLY17PO29 PO; +PRED-220 PO; -PROCHLORPERAZINE 10 MG/2 ML VIAL. IV; -PROPOFOL 40 ML IV; +RANI150T2 PO; +SENN1TAB8 PO; +TIZA4CAP3 PO; +TIZA4TAB8 PO; +TRAM50TA PO; +TRAMADOL; -fentaNYL PF VIAL 100 MCG/2 ML VIAL IV
[2018-03-13] MEDS ORDERED: MORPHINE SULFATE 4 MG/ML VIAL. IV/SQ PRN (03:45)
--- NOTE | 2018-03-13 03:52 | PHYS DOC ---
Past Medical History Past Medical History: Arthritis, GERD, Hypertension, [place], Other Additional Past Medical Histor: RA Past Surgical History: Angioplasty, Cholecystectomy, Other Additional Past Surgical Histo: cyst removed from back, Cardiac stent x2 Alcohol Use: Occasionally Drug Use: None Adult General Chief Complaint Chief Complaint: CHEST PAIN HPI HPI Patient is a 57 year old [female who presents with chest pain. This started approximately 10:00 this evening. His radiation to her neck and shoulder. Gets worse with exertion. She had some discomfort earlier as well as increased shortness of breath with exertion since approximately 9:00 this morning. Patient has previous history of a non-STEMI. This discomfort feels the same as previous. Patient reports receiving aspirin from EMS as well as nitroglycerin without any relief of the discomfort this evening. Nitroglycerin did provide some relief earlier yesterday. Patient denies any respirophasic component of the pain. Reports that she has had a sore throat for approximately the past month. There've been no recent changes in her medicines.[] Review of Systems Review of Systems Constitutional: Denies fever or chills [] Eyes: Denies change in visual acuity, redness, or eye pain [] HENT: Denies nasal congestion or sore throat [] Respiratory: Denies cough or shortness of breath [] Cardiovascular: No additional information not addressed in HPI [] GI: Denies abdominal pain, nausea, vomiting, bloody stools or diarrhea [] : Denies dysuria or hematuria [] Musculoskeletal: Denies back pain or joint pain [] Integument: Denies rash or skin lesions [] Neurologic: Denies headache, focal weakness or sensory changes [] Endocrine: Denies polyuria or polydipsia [] All other systems were reviewed and found to be within normal limits, except as documented in this note. Current Medications Current Medications Current Medications Medications (Trade) Dose Ordered Sig/Haylee Start Time Stop Time Status Last Admin Dose Admin Aspirin (Children'S Aspirin) 324 mg 1X ONCE 03/13/18 04:00 03/13/18 04:01 DC Morphine Sulfate (Morphine Sulfate) 4 mg PRN Q15MIN PRN 03/13/18 03:45 03/14/18 03:44 03/13/18 04:00 4 MG Allergies Allergies Allergies Coded Allergies Type Severity Reaction Last Updated Verified No Known Drug Allergies 07/29/17 No Physical Exam Physical Exam Constitutional: Well developed, well nourished, no acute distress, non-toxic appearance. [] HENT: Normocephalic, atraumatic, bilateral external ears normal, oropharynx moist, no oral exudates, nose normal. [] Eyes: PERRLA, EOMI, conjunctiva normal, no discharge. [] Neck: Normal range of motion, no tenderness, supple, no stridor. [] Cardiovascular:Heart rate regular rhythm, no murmur [] Lungs & Thorax: Bilateral breath sounds clear to auscultation . No chest tenderness to palpation.[] Abdomen: Bowel sounds normal, soft, no tenderness, no masses, no pulsatile masses. [] Skin: Warm, dry, no erythema, no rash. [] Back: No tenderness, no CVA tenderness. [] Extremities: No tenderness, no cyanosis, no clubbing, ROM intact, no edema. [] Neurologic: Alert and oriented X 3, normal motor function, normal sensory function, no focal deficits noted. [] Psychologic: Affect normal, judgement normal, mood normal. [] Current Patient Data Vital Signs Vital Signs Date Time Temp Pulse Resp B/P (MAP) Pulse Ox O2 Delivery O2 Flow Rate FiO2 03/13/18 04:30 20 97 Room Air 03/13/18 03:10 98.5 67 155/97 (116) 98.5 Lab Values Laboratory Tests Test 03/13/18 03:27 03/13/18 04:00 03/13/18 04:12 White Blood Count 8.2 x10^3/uL (4.0-11.0) Red Blood Count 4.39 x10^6/uL (3.50-5.40) Hemoglobin 13.2 g/dL (12.0-15.5) Hematocrit 39.3 % (36.0-47.0) Mean Corpuscular Volume 90 fL (79-100) Mean Corpuscular Hemoglobin 30 pg (25-35) Mean Corpuscular Hemoglobin Concent 34 g/dL (31-37) Red Cell Distribution Width 13.6 % (11.5-14.5) Platelet Count 286 x10^3/uL (140-400) Neutrophils (%) (Auto) 56 % (31-73) Lymphocytes (%) (Auto) 37 % (24-48) Monocytes (%) (Auto) 5 % (0-9) Eosinophils (%) (Auto) 2 % (0-3) Basophils (%) (Auto) 0 % (0-3) Neutrophils # (Auto) 4.6 x10^3uL (1.8-7.7) Lymphocytes # (Auto) 3.0 x10^3/uL (1.0-4.8) Monocytes # (Auto) 0.4 x10^3/uL (0.0-1.1) Eosinophils # (Auto) 0.1 x10^3/uL (0.0-0.7) Basophils # (Auto) 0.0 x10^3/uL (0.0-0.2) Prothrombin Time 12.4 SEC (11.7-14.0) Prothrombin Time INR 1.0 (0.8-1.1) Sodium Level 144 mmol/L (136-145) Potassium Level 3.6 mmol/L (3.5-5.1) Chloride Level 106 mmol/L (98-107) Carbon Dioxide Level 28 mmol/L (21-32) Anion Gap 10 (6-14) Blood Urea Nitrogen 6 mg/dL (7-20) L Creatinine 0.8 mg/dL (0.6-1.0) Estimated GFR (Cockcroft-Gault) 89.5 BUN/Creatinine Ratio 8 (6-20) Glucose Level 113 mg/dL (70-99) H Calcium Level 8.8 mg/dL (8.5-10.1) Magnesium Level 2.1 mg/dL (1.8-2.4) Total Bilirubin 0.2 mg/dL (0.2-1.0) Aspartate Amino Transferase (AST) 15 U/L (15-37) Alanine Aminotransferase (ALT) 20 U/L (14-59) Alkaline Phosphatase 136 U/L (46-116) H Troponin I Quantitative < 0.017 ng/mL (0.000-0.055) Total Protein 7.2 g/dL (6.4-8.2) Albumin 3.4 g/dL (3.4-5.0) Albumin/Globulin Ratio 0.9 (1.0-1.7) L POC Troponin I 0.00 ng/ml (<0.08) Laboratory Tests 03/13/18 03:27 Laboratory Tests 11/9/18 04:00 EKG EKG EKG shows a sinus rhythm, left axis at -20, QTC of [address] elevations. No acute changes when compared to EKG of 07/31/2017[] Radiology/Procedures Radiology/Procedures Chest x-ray shows no acute features[] Course & Med Decision Making Course & Med Decision Making Pertinent Labs and Imaging studies reviewed. (See chart for details) ED course: Patient arrived, was placed in bed, tolerated exam well. Patient received aspirin prior to arrival along with nitroglycerin which did not significant only change her pain so morphine was administered which did improve her pain. Patient's first set of cardiac enzymes were negative. Given patient's history of previous NSTEMI along with symptoms concerning for possible cardiac etiology will admit the patient to the [facility]. Findings were discussed with patient , all questions were answered.[] Dragon Disclaimer Dragon Disclaimer This electronic medical record was generated, in whole or in part, using a voice recognition dictation system. Departure Departure Impression: Primary Impression: Chest pain Disposition: ADMITTED INPATIENT Admitting Physician: Brandi Witt Condition: STABLE Referrals: MIGUEL GUZMAN MD (PCP) Problem Qualifiers Primary Impression: Chest pain Chest pain type: unspecified Qualified Codes: R07.9 - Chest pain, unspecified JEANNE ABEL DO Mar 13, 2018 03:52
[2018-03-13 03:57] LABS: BASO % 0 % (0-3); EOS # 0.1 x10^3/uL (0.0-0.7); EOS % 2 % (0-3); HEMATOCRIT 39.3 % (36.0-47.0); HEMOGLOBIN 13.2 g/dL (12.0-15.5); LYMPH % 37 % (24-48); MEAN CORPUSCULAR HEMOGLOBIN 30 pg (25-35); MEAN CORPUSCULAR HGB CONC 34 g/dL (31-37); MEAN CORPUSCULAR VOLUME 90 fL (79-100); MONO # 0.4 x10^3/uL (0.0-1.1); MONO % 5 % (0-9); NEUT # 4.6 x10^3uL (1.8-7.7); NEUT % 56 % (31-73); PLATELET COUNT 286 x10^3/uL (140-400); RED BLOOD COUNT 4.39 x10^6/uL (3.50-5.40); RED CELL DISTRIBUTION WIDTH 13.6 % (11.5-14.5); WHITE BLOOD COUNT 8.2 x10^3/uL (4.0-11.0)
[2018-03-13] MEDS ORDERED: ASPIRIN CHEWABLE 81 MG TABLET. PO ONE (04:00)
[2018-03-13 04:06] LABS: PROTHROMBIN TIME PATIENT 12.4 SEC (11.7-14.0)
--- NOTE | 2018-03-13 04:20 | RAD ---
PORTABLE CHEST 1V Clinical Indication: chest pain Comparison: AP chest July 31, 2017. Findings: The cardiomediastinal silhouette is normal. Lungs are clear. There is no pneumothorax. No pleural effusion is appreciated. No acute bone abnormality. IMPRESSION: No acute cardiopulmonary process. Electronically signed by: Farooq Baird MD (03/13/2018 4:16 AM) [facility]
[2018-03-13 04:36] LABS: CALCIUM 8.8 mg/dL (8.5-10.1); CREATININE 0.8 mg/dL (0.6-1.0); GFR 89.5; POTASSIUM 3.6 mmol/L (3.5-5.1)
[2018-03-13 04:41] LABS: ALBUMIN 3.4 g/dL (3.4-5.0); ALBUMIN/GLOBULIN RATIO 0.9 (1.0-1.7); MAGNESIUM 2.1 mg/dL (1.8-2.4); TOTAL BILIRUBIN 0.2 mg/dL (0.2-1.0); TOTAL PROTEIN 7.2 g/dL (6.4-8.2)
[2018-03-13] MEDS ORDERED: ONDANSETRON PF 4 MG/2 ML VIAL. IV PRN (05:00)
[2018-03-13] MEDS ORDERED: NITROGLYCERIN SUBLINGUAL 0.4 MG BOTTLE OF 25. SL PRN ×2 (05:00→09:30)
[2018-03-13] MEDS: MORPHINE SULFATE 2 MG/ML VIAL. IV PRN ×2 (05:34→08:50)
--- NOTE | 2018-03-13 05:52 | EKG ---
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
[2018-03-13] MEDS ORDERED: ONDA4TAB12 PO (06:24)
[2018-03-13] MEDS ORDERED: METO50TA6 PO (06:24)
[2018-03-13] MEDS ORDERED: ASPI-630 PO (06:24)
[2018-03-13] MEDS ORDERED: LOSA1TAB25 PO (06:24)
[2018-03-13] MEDS ORDERED: AMLO5TAB7 PO (06:24)
[2018-03-13] MEDS ORDERED: FLUT9.9S NS (06:24)
[2018-03-13 07:00] VITALS: BP 140/76
[2018-03-13] MEDS ORDERED: IBUPROFEN 400 MG TABLET. PO PRN (09:30)
[2018-03-13] MEDS ORDERED: hydroCHLOROthiazide 12.5 MG CAPSULE PO SCH (10:00)
[2018-03-13] MEDS ORDERED: POLYETHYLENE GLYCOL 3350 17 GM PACKET. PO SCH (10:00)
[2018-03-13] MEDS ORDERED: FLUTICASONE 50MCG/NASAL SPRAY 16GM BOTTLE. NS SCH (10:00)
[2018-03-13] MEDS ORDERED: METOPROLOL TART IMMED RELEASE 50 MG TABLET. PO SCH ×2 (10:00→21:00)
[2018-03-13] MEDS ORDERED: NICOTINE 14MG PATCH. TD SCH (10:00)
[2018-03-13] MEDS ORDERED: CLOPIDOGREL BISULFATE 75 MG TABLET PO SCH (10:00)
[2018-03-13] MEDS ORDERED: ASPIRIN CHEWABLE 81 MG TABLET. PO SCH (10:00)
[2018-03-13] MEDS ORDERED: LOSARTAN POTASSIUM 50 MG TABLET. PO SCH (10:00)
--- NOTE | 2018-03-13 10:03 | PDOC ---
Provider Note Provider Note Pt seen.H&P to be dictated. #[id number] MIGUEL GUZMAN MD Mar 13, 2018 10:03
[2018-03-13 10:39] LABS: CHOLESTEROL/HDL RATIO 4.1
[2018-03-13 11:00] VITALS: BP 131/79
--- NOTE | 2018-03-13 11:22 | HP ---
ADMIT DATE: 03/13/2018 REASON FOR ADMISSION TO THE HOSPITAL: Shortness of breath as well as palpitations, chest pain. HISTORY OF PRESENT ILLNESS: The patient is a 57-year-old female. The patient has history of rheumatoid arthritis, hypertension, anxiety, GERD and she was having chest pain, came to the Emergency Room. EKG, cardiac enzymes were negative, was admitted to the hospital for observation. She has a history of coronary spasm in the past. She had a cardiac catheterization in May of this year. Echocardiogram reveals good left ventricular function, very minimal coronary artery disease. PAST MEDICAL HISTORY: Arthritis, GERD, hypertension, coronary spasm, rheumatoid arthritis. PAST SURGICAL HISTORY: Gallbladder surgery, cardiac catheterization x 2, cyst removed from the back. PERSONAL HISTORY: Smokes. Social alcohol. Denies any drugs. FAMILY HISTORY: Positive for hypertension, heart disease, diabetes, arthritis. ALLERGIES: No known drug allergies. MEDICATIONS AT HOME: The patient is on amlodipine 5 mg twice a day, aspirin 81 mg daily, atorvastatin 40 mg daily, Plavix 75 mg daily, Voltaren gel daily, Flonase daily or fluticasone, ibuprofen 800 mg p.r.n., losartan with hydrochlorothiazide 100 mg/12.5 mg daily, metoprolol 50 mg twice a day, nicotine patch daily 14 mg, nitro sublingual, Zofran for nausea, Protonix 40 mg daily, MiraLax 17 grams daily. REVIEW OF SYMPTOMS: Complains of palpitations. Also in the night, she gets some short winded, snoring and stops breathing. PHYSICAL EXAMINATION: GENERAL: The patient is chest pain free. She is anxious to go home. VITAL SIGNS: Temperature 98, pulse 67, respirations 20, blood pressure 155/97, 98 on room air. HEENT: Head is atraumatic. Pupils equal. Oral cavity: No congestion. NECK: Supple. Thyroid not enlarged. JVD not elevated. CHEST: Symmetrical. CARDIOVASCULAR: S1, S2. LUNGS: Clear. No wheezing. ABDOMEN: Soft, bowel sounds present, no mass palpable. EXTERNAL GENITALIA: No Diaz. RECTAL: Deferred. EXTREMITIES: No calf tenderness. NEUROLOGIC: Cranial nerves intact. Power 5/5 in all extremities. LABORATORY DATA: White count 8, hemoglobin 13, platelets 286. INR 1.0. Electrolytes: Sodium 133, potassium 3.6, chloride 106, bicarbonate 28, BUN 6, creatinine 0.8, glucose 113, magnesium 2.1. LFTs were normal. Troponin was negative x 3. INR is 1.0. Chest x-ray was negative. EKG negative for ischemia, normal sinus rhythm. FINAL IMPRESSION: 1. Chest pain. 2. Palpitations. 3. Short of breath, snoring, stops breathing at night, possible sleep apnea. 4. Coronary spasm, had a cardiac cath x 2 within last 1 year. 5. Hypertension. 6. Hyperlipidemia. 7. Smoking. 8. Rheumatoid arthritis. 9. Gastroesophageal reflux disease. PLAN: At this time, admit to hospital, seen by Cardiology and Pulmonary consult, probably need a sleep study. Pulmonary function test. Smoking counseling was done. The patient has nicotine patch. The patient had echocardiogram in May, good left ventricular function and the patient could be able to be discharged later today when seen by specialist. MIGUEL GUZMAN MD DR: AMY/ishmael JOB#: [id number] / [id number]
--- NOTE | 2018-03-13 11:33 | PDOC2 ---
CARDIAC CONSULT DATE OF CONSULT Date of Consult DATE: 03/13/18 TIME: 11:11 REASON FOR CONSULT Reason for Consult: Chest pain REFERRING PHYSICIAN Referring Physician: Luis Albetro SOURCE Source: Chart review, Patient HISTORY OF PRESENT ILLNESS HISTORY OF PRESENT ILLNESS This is a pleasant 57 AA female admitted for complains of palpitations with associated nausea. Reports of dizziness associated with it. Desni any chest pressure but more like her heart felt like racing. Denies any falls or passing out. Reports no excessive caffein use nor recreational drugs. She continued to smoke tobacco. No hx of arrhythmias but positive for CAD. She is followed by wrister. No exertional CP nor MACDONALD. PAST MEDICAL HISTORY Past Medical History Cardiovascular: HTN, Hyperlipidemia, CAD CENTRAL NERVOUS SYSTEM: Other (No pertinent history) GI: GERD, GI bleed, gastroparesis Heme/Onc: Anemia NOS Psych: No pertinent hx Musculoskeletal: Osteoarthritis Rheumatologic: Rheumatoid arthritis (psoriatic) ENT: No pertinent hx Renal/: No pertinent hx Endocrine: No pertinent hx Dermatology: Psoriasis PAST SURGICAL HISTORY Past Surgical History Cholecystectomy, Tubal Ligation, Other (neck cyst removal; achilles repair), [facility] 05/2017 FAMILY HISTORY Family History Other (daughter with premature cardiomyopathy and AICD; sickle cell) SOCIAL HISTORY Social History Smoke: <1 pack per day ALCOHOL: none Drugs: None Lives: with Family CURRENT MEDICATIONS CURRENT MEDICATIONS Current Medications Medications (Trade) Dose Ordered Sig/Haylee Route PRN Reason Start Time Stop Time Status Last Admin Dose Admin Morphine Sulfate (Morphine Sulfate) 4 mg PRN Q15MIN PRN IV/SQ PAIN GREATER THAN 3/10 03/13/18 03:45 03/14/18 03:44 03/13/18 04:00 Ondansetron HCl (Zofran) 4 mg PRN Q8HRS PRN IV NAUSEA/VOMITING 1ST CHOICE 03/13/18 05:00 03/14/18 04:59 03/13/18 06:28 Morphine Sulfate (Morphine Sulfate) 2 mg PRN Q2HR PRN IV SEVERE PAIN 03/13/18 05:00 03/14/18 04:59 03/13/18 08:50 ALLERGIES ALLERGIES: Coded Allergies: No Known Drug Allergies (Unverified , 07/29/17) ROS Review of System 14 point ROS evaluated with pertinent positives noted per HPI PHYSICAL EXAM General: Alert, Oriented X3, Cooperative, No acute distress HEENT: Atraumatic, Mucous membr. moist/pink Lungs: Clear to auscultation, Normal air movement Heart: Regular rate (SR with no significant ectopies), Normal S1, Normal S2, Other (2/6 systolic murmur to LLS border ) Abdomen: Soft, No tenderness Extremities: No cyanosis, No edema Skin: No breakdown, No significant lesion Neuro: Normal speech, Sensation intact Psych/Mental Status: Mental status NL, Other (anxiety) MUSCULOSKELETAL: Osteoarthritic changes both hands VITALS VITALS Vital Signs Date Time Temp Pulse Resp B/P (MAP) Pulse Ox O2 Delivery O2 Flow Rate FiO2 03/13/18 08:50 97 Room Air 03/13/18 06:04 20 03/13/18 05:45 66 187/107 (133) 03/13/18 03:10 98.5 98.5 LABS Lab: Laboratory Tests Test 03/13/18 03:27 03/13/18 04:00 03/13/18 04:12 03/13/18 07:55 White Blood Count 8.2 x10^3/uL (4.0-11.0) Red Blood Count 4.39 x10^6/uL (3.50-5.40) Hemoglobin 13.2 g/dL (12.0-15.5) Hematocrit 39.3 % (36.0-47.0) Mean Corpuscular Volume 90 fL (79-100) Mean Corpuscular Hemoglobin 30 pg (25-35) Mean Corpuscular Hemoglobin Concent 34 g/dL (31-37) Red Cell Distribution Width 13.6 % (11.5-14.5) Platelet Count 286 x10^3/uL (140-400) Neutrophils (%) (Auto) 56 % (31-73) Lymphocytes (%) (Auto) 37 % (24-48) Monocytes (%) (Auto) 5 % (0-9) Eosinophils (%) (Auto) 2 % (0-3) Basophils (%) (Auto) 0 % (0-3) Neutrophils # (Auto) 4.6 x10^3uL (1.8-7.7) Lymphocytes # (Auto) 3.0 x10^3/uL (1.0-4.8) Monocytes # (Auto) 0.4 x10^3/uL (0.0-1.1) Eosinophils # (Auto) 0.1 x10^3/uL (0.0-0.7) Basophils # (Auto) 0.0 x10^3/uL (0.0-0.2) Prothrombin Time 12.4 SEC (11.7-14.0) Prothromb Time International Ratio 1.0 (0.8-1.1) Sodium Level 144 mmol/L (136-145) Potassium Level 3.6 mmol/L (3.5-5.1) Chloride Level 106 mmol/L (98-107) Carbon Dioxide Level 28 mmol/L (21-32) Anion Gap 10 (6-14) Blood Urea Nitrogen 6 mg/dL (7-20) Creatinine 0.8 mg/dL (0.6-1.0) Estimated GFR (Cockcroft-Gault) 89.5 BUN/Creatinine Ratio 8 (6-20) Glucose Level 113 mg/dL (70-99) Calcium Level 8.8 mg/dL (8.5-10.1) Magnesium Level 2.1 mg/dL (1.8-2.4) Total Bilirubin 0.2 mg/dL (0.2-1.0) Aspartate Amino Transf (AST/SGOT) 15 U/L (15-37) Alanine Aminotransferase (ALT/SGPT) 20 U/L (14-59) Alkaline Phosphatase 136 U/L (46-116) Troponin I Quantitative < 0.017 ng/mL (0.000-0.055) < 0.017 ng/mL (0.000-0.055) Total Protein 7.2 g/dL (6.4-8.2) Albumin 3.4 g/dL (3.4-5.0) Albumin/Globulin Ratio 0.9 (1.0-1.7) Triglycerides Level 80 mg/dL (0-150) Cholesterol Level 182 mg/dL (0-200) LDL Cholesterol, Calculated 122 mg/dL (0-100) VLDL Cholesterol, Calculated 16 mg/dL (0-40) Non-HDL Cholesterol Calculated 138 mg/dL (0-129) HDL Cholesterol 44 mg/dL (40-60) Cholesterol/HDL Ratio 4.1 Thyroid Stimulating Hormone (TSH) 1.744 uIU/mL (0.358-3.74) Bedside Troponin I 0.00 ng/ml (<0.08) ECHOCARDIOGRAM ECHOCARDIOGRAM <Conclusion> The left ventricular systolic function is normal and the ejection fraction is within normal range. The Ejection Fraction is 65-70%. There is normal LV segmental wall motion. DATE: 05/31/17 0910 HEART CATH HEART CATH Findings. Hemodynamics. LV pressure 158/26, aortic root pressure 154/92. Coronaries. Left main. The left main was a normal-size vessel with no lesions. Left anterior descending. The LAD was a moderate size vessel. It had a proximal 15% lesion, a mid 10-15% lesion and distal small vessel disease in the first diagonal branch. Left circumflex. The left circumflex was a dominant vessel. It had a mid 20% lesion. Right coronary artery. The right coronary was a moderate size nondominant vessel. It had a mid to distal 50-60% lesion. IFR measurement of this lesion was normal. Left ventriculogram. The left ventricle had normal LV systolic function with ejection fraction of greater than 60%. <Conclusion> Moderate single vessel coronary artery disease. Single-vessel small vessel distal disease. Normal left ventricular systolic function. DATE: 05/30/17 1327 ASSESSMENT/PLAN ASSESSMENT/PLAN 1. Palpitations: no recorded ectopies in tele monitor. anxiety vs true PSVT. 2. CAD: trop series nml EKG SR without acute changes, clinically stable. 3. HTN: controlled 4. HLP 5. GERD/gastroparesis 6. Tobaccoism 7. Morbid obesity Recommendations 1. Continue metoprolol. UDS. Continue with secondary prevention. 2. Discussed outpt event monitor and this could be arranged with her wrister. 3. Smoking cessation. Nothing further at this time may DC per cardiac perspective. ARACELY HAMMOND PLASTER DIE MAKER Mar 13, 2018 11:33
[2018-03-13 11:39] VITALS: BP 131/79
[2018-03-13] MEDS ORDERED: DICLOFENAC SODIUM 1% TOPICAL GEL 100GM TUBE. TP SCH (13:00)
--- NOTE | 2018-03-13 16:51 | PDOC ---
PULMONARY PROGRESS NOTES Vitals Vital Signs Date Time Temp Pulse Resp B/P (MAP) Pulse Ox O2 Delivery O2 Flow Rate FiO2 03/13/18 11:39 66 131/79 03/13/18 11:00 97.6 20 97 Room Air 97.6 Labs Laboratory Tests Test 03/13/18 03:27 03/13/18 04:00 03/13/18 04:12 03/13/18 07:55 White Blood Count 8.2 x10^3/uL (4.0-11.0) Red Blood Count 4.39 x10^6/uL (3.50-5.40) Hemoglobin 13.2 g/dL (12.0-15.5) Hematocrit 39.3 % (36.0-47.0) Mean Corpuscular Volume 90 fL (79-100) Mean Corpuscular Hemoglobin 30 pg (25-35) Mean Corpuscular Hemoglobin Concent 34 g/dL (31-37) Red Cell Distribution Width 13.6 % (11.5-14.5) Platelet Count 286 x10^3/uL (140-400) Neutrophils (%) (Auto) 56 % (31-73) Lymphocytes (%) (Auto) 37 % (24-48) Monocytes (%) (Auto) 5 % (0-9) Eosinophils (%) (Auto) 2 % (0-3) Basophils (%) (Auto) 0 % (0-3) Neutrophils # (Auto) 4.6 x10^3uL (1.8-7.7) Lymphocytes # (Auto) 3.0 x10^3/uL (1.0-4.8) Monocytes # (Auto) 0.4 x10^3/uL (0.0-1.1) Eosinophils # (Auto) 0.1 x10^3/uL (0.0-0.7) Basophils # (Auto) 0.0 x10^3/uL (0.0-0.2) Prothrombin Time 12.4 SEC (11.7-14.0) Prothromb Time International Ratio 1.0 (0.8-1.1) Sodium Level 144 mmol/L (136-145) Potassium Level 3.6 mmol/L (3.5-5.1) Chloride Level 106 mmol/L (98-107) Carbon Dioxide Level 28 mmol/L (21-32) Anion Gap 10 (6-14) Blood Urea Nitrogen 6 mg/dL (7-20) Creatinine 0.8 mg/dL (0.6-1.0) Estimated GFR (Cockcroft-Gault) 89.5 BUN/Creatinine Ratio 8 (6-20) Glucose Level 113 mg/dL (70-99) Calcium Level 8.8 mg/dL (8.5-10.1) Magnesium Level 2.1 mg/dL (1.8-2.4) Total Bilirubin 0.2 mg/dL (0.2-1.0) Aspartate Amino Transf (AST/SGOT) 15 U/L (15-37) Alanine Aminotransferase (ALT/SGPT) 20 U/L (14-59) Alkaline Phosphatase 136 U/L (46-116) Troponin I Quantitative < 0.017 ng/mL (0.000-0.055) < 0.017 ng/mL (0.000-0.055) Total Protein 7.2 g/dL (6.4-8.2) Albumin 3.4 g/dL (3.4-5.0) Albumin/Globulin Ratio 0.9 (1.0-1.7) Triglycerides Level 80 mg/dL (0-150) Cholesterol Level 182 mg/dL (0-200) LDL Cholesterol, Calculated 122 mg/dL (0-100) VLDL Cholesterol, Calculated 16 mg/dL (0-40) Non-HDL Cholesterol Calculated 138 mg/dL (0-129) HDL Cholesterol 44 mg/dL (40-60) Cholesterol/HDL Ratio 4.1 Thyroid Stimulating Hormone (TSH) 1.744 uIU/mL (0.358-3.74) Bedside Troponin I 0.00 ng/ml (<0.08) Laboratory Tests Test 03/13/18 03:27 03/13/18 04:00 03/13/18 04:12 03/13/18 07:55 White Blood Count 8.2 x10^3/uL (4.0-11.0) Red Blood Count 4.39 x10^6/uL (3.50-5.40) Hemoglobin 13.2 g/dL (12.0-15.5) Hematocrit 39.3 % (36.0-47.0) Mean Corpuscular Volume 90 fL (79-100) Mean Corpuscular Hemoglobin 30 pg (25-35) Mean Corpuscular Hemoglobin Concent 34 g/dL (31-37) Red Cell Distribution Width 13.6 % (11.5-14.5) Platelet Count 286 x10^3/uL (140-400) Neutrophils (%) (Auto) 56 % (31-73) Lymphocytes (%) (Auto) 37 % (24-48) Monocytes (%) (Auto) 5 % (0-9) Eosinophils (%) (Auto) 2 % (0-3) Basophils (%) (Auto) 0 % (0-3) Neutrophils # (Auto) 4.6 x10^3uL (1.8-7.7) Lymphocytes # (Auto) 3.0 x10^3/uL (1.0-4.8) Monocytes # (Auto) 0.4 x10^3/uL (0.0-1.1) Eosinophils # (Auto) 0.1 x10^3/uL (0.0-0.7) Basophils # (Auto) 0.0 x10^3/uL (0.0-0.2) Prothrombin Time 12.4 SEC (11.7-14.0) Prothromb Time International Ratio 1.0 (0.8-1.1) Sodium Level 144 mmol/L (136-145) Potassium Level 3.6 mmol/L (3.5-5.1) Chloride Level 106 mmol/L (98-107) Carbon Dioxide Level 28 mmol/L (21-32) Anion Gap 10 (6-14) Blood Urea Nitrogen 6 mg/dL (7-20) Creatinine 0.8 mg/dL (0.6-1.0) Estimated GFR (Cockcroft-Gault) 89.5 BUN/Creatinine Ratio 8 (6-20) Glucose Level 113 mg/dL (70-99) Calcium Level 8.8 mg/dL (8.5-10.1) Magnesium Level 2.1 mg/dL (1.8-2.4) Total Bilirubin 0.2 mg/dL (0.2-1.0) Aspartate Amino Transf (AST/SGOT) 15 U/L (15-37) Alanine Aminotransferase (ALT/SGPT) 20 U/L (14-59) Alkaline Phosphatase 136 U/L (46-116) Troponin I Quantitative < 0.017 ng/mL (0.000-0.055) < 0.017 ng/mL (0.000-0.055) Total Protein 7.2 g/dL (6.4-8.2) Albumin 3.4 g/dL (3.4-5.0) Albumin/Globulin Ratio 0.9 (1.0-1.7) Triglycerides Level 80 mg/dL (0-150) Cholesterol Level 182 mg/dL (0-200) LDL Cholesterol, Calculated 122 mg/dL (0-100) VLDL Cholesterol, Calculated 16 mg/dL (0-40) Non-HDL Cholesterol Calculated 138 mg/dL (0-129) HDL Cholesterol 44 mg/dL (40-60) Cholesterol/HDL Ratio 4.1 Thyroid Stimulating Hormone (TSH) 1.744 uIU/mL (0.358-3.74) Bedside Troponin I 0.00 ng/ml (<0.08) Medications Active Scripts Medications Dose Route/Sig Max Daily Dose Days Date Category Dose Instructions Ondansetron Odt (Ondansetron) 4 Mg Tab.rapdis 1 Tab PO Q12HR 03/13/18 Reported Losartan-Hctz 100-12.5 Mg Tab (Losartan/Hydrochlorothiazide) 1 Each Tablet 1 Tab PO DAILY 03/13/18 Reported Flonase Allergy Relief (Fluticasone Propionate) 9.9 Ml [place].susp 2 Sprays NS DAILY 03/13/18 Reported Aspirin 81 Mg Tab.chew 1 Tab PO DAILY 03/13/18 Reported Amlodipine Besylate 5 Mg Tablet 5 Mg PO HS 03/13/18 Reported Voltaren (Diclofenac Sodium) 100 Gm Gel..gram. 2 Gm TP QID 08/02/17 Rx Apply to chest wall Protonix (Pantoprazole Sodium) 40 Mg Granpkt.dr 40 Mg PO HS 30 08/01/17 Rx Fluticasone Propionate Nasal [place] (Fluticasone Propionate) 16 Gm [place].susp 2 [place] NS DAILY 08/01/17 Rx Ibuprofen 800 Mg Tablet 800 Mg PO PRN Q6HRS PRN 07/29/17 Reported Senna-Docusate Sodium Tablet (Sennosides/Docusate Sodium) 1 Each Tablet 1 Each PO 07/10/17 Reported NICODERM CQ 14mg (Nicotine) 1 Each Patch.td24 1 Patch TP DAILY 07/10/17 Reported Miralax (Polyethylene Glycol 3350) 17 Gm Powd.pack 1 Packet PO DAILY 07/10/17 Reported Nitrostat (Nitroglycerin) 0.4 Mg Tab.subl 0.4 Mg SL PRN Q5MIN PRN 30 06/01/17 Rx Clopidogrel (Clopidogrel Bisulfate) 75 Mg Tablet 75 Mg PO DAILYWBKFT 30 06/01/17 Rx Atorvastatin Calcium 40 Mg Tablet 40 Mg PO QHS 30 06/01/17 Rx Metoprolol Tartrate 50 Mg Tablet 100 Mg PO BID 09/25/13 Reported Impression . POSSIBLE MARGARET WILL SET UP SLEEP STUDY OUT PT ALDEN HOLLAND MD Mar 13, 2018 16:51
[2018-03-13 19:14] LABS: HEMOGLOBIN A1C 6.1 % (4.8-5.6)
[2018-03-13] MEDS ORDERED: PANTOPRAZOLE 40 MG TABLET.DR. PO SCH (21:00)
[2018-03-13] MEDS ORDERED: ATORVASTATIN CALCIUM 40 MG TABLET. PO SCH (21:00)
[2018-03-13] MEDS ORDERED: amLODIPine BESYLATE 5 MG TABLET PO SCH (21:00)
[2018-03-13] MEDS ORDERED: ONDANSETRON ODT 4 MG TAB.RAPDIS. PO PRN (21:00)
--- NOTE | 2018-03-14 02:32 | CONS ---
DATE OF CONSULTATION: 03/13/2018 ATTENDING PHYSICIAN: Dr. Sahu. REASON FOR CONSULTATION: The patient is seen in pulmonary consultation at the request of Dr. Sahu for possible obstructive sleep apnea. HISTORY OF PRESENT ILLNESS: The patient is a 57-year-old female who smokes approximately 1 pack of cigarettes a day, presented with shortness of breath, palpitations. She was evaluated by Cardiology. She was due to discharge. I was asked to see her in consultation for possible obstructive sleep apnea and the patient states that she does not snore. No witnessed periods of apnea by family members. She does have excessive daytime sleepiness. She does not sleep well. She awakens unrefreshed from her sleep and awakens multiple times throughout the night. PAST MEDICAL HISTORY: Arthritis, gastroesophageal reflux, coronary artery spasm, hypertension, rheumatoid arthritis. PAST SURGICAL HISTORY: Status post cholecystectomy, cardiac catheterization. SOCIAL HISTORY: She is currently smoking a bit. Denies any alcohol or drug use. FAMILY HISTORY: Coronary artery disease, sickle cell. REVIEW OF SYSTEMS: As indicated above, otherwise, a 10-point system was reviewed and negative. CONSTITUTIONAL: No fever or chills. EYES: No change in visual acuity. HEENT: No nasal congestion or sore throat. PULMONARY: As indicated above. CARDIOVASCULAR: As indicated above. GASTROINTESTINAL: No nausea, vomiting, or diarrhea. GENITOURINARY: No dysuria or frequency. MUSCULOSKELETAL: No localized muscle aches or joint pains. SKIN: No new skin lesions. NEUROLOGIC: No headaches, diplopia or blurred vision. PHYSICAL EXAMINATION: GENERAL: Morbid obese individual with a body mass index of 43, in no respiratory distress on room air. HEENT: Eyes, the sclerae were nonicteric. NECK: Jugular venous distention could not be assessed secondary to body habitus. CHEST: Full expansion. LUNGS: Poor airway flow with no wheezes. CARDIOVASCULAR: Regular rate and rhythm with S1, S2, no S3. ABDOMEN: Soft, nontender, obese. EXTREMITIES: No clubbing, cyanosis, some edema. NEUROLOGIC: The patient was awake, alert, following commands. A detailed neuro exam was not performed. IMPRESSION: 1. Clinical presentation compatible with obstructive sleep apnea. 2. Morbid obesity. 3. Tobacco dependence. 4. Chronic obstructive pulmonary disease, unknown FEV1. 5. Coronary artery disease with previous cardiac catheterization on 05/31/2017 revealing moderate, single vessel coronary artery disease, normal left ventricular function. PLAN: 1. The patient is to discharge home today. 2. Follow up in my office, prior to follow up, my office staff will arrange for a sleep study. I do appreciate the privilege in sharing this patient's care. ALDEN HOLLAND MD DR: MARCIA/ishmael JOB#: [id number] / [id number]
[2018-03-14] MEDS ORDERED: NON FORMULARY ITEM (Fluticasone Propionate (Flonase Allergy Relief) 2 SPRAYS) NS SCH (09:00)
[2018-03-14] MEDS ORDERED: amLODIPine BESYLATE 5 MG TABLET PO SCH (09:00)
[2018-03-14] MEDS ORDERED: NON FORMULARY ITEM (Losartan/Hydrochlorothiazide (Losartan-Hctz 100-12.5 Mg Tab) 1 TAB) PO SCH (09:00)
--- NOTE | 2018-03-16 19:34 | PDOC ---
Provider Note Provider Note Discharge summary dictated. #[id number]. MIGUEL GUZMAN MD Mar 16, 2018 19:34
--- NOTE | 2018-03-17 09:28 | DS ---
DATE OF DISCHARGE: 03/13/2018 REASON FOR ADMISSION TO THE HOSPITAL: Chest discomfort. The patient has a known history of coronary artery spasm. CONSULTATIONS: Dr. Kathleen, Pulmonology and Dr. Son, Cardiology. HOSPITAL COURSE: The patient is a 57-year-old female with history of single coronary artery disease, medical management and she has a history of obstructive sleep apnea, COPD, rheumatoid arthritis, smoker, came with chest tightness. Cardiac enzymes and EKG were negative. Had seen by Cardiology and Pulmonology. Cardiac enzymes were negative. LDL is 122, A1c 6.1 and the patient had a cardiac catheterization two times, one here within a year ago and another one at [facility] and she had a good left ventricular function. Right coronary has a 50-60% lesion. The patient was recommended medical treatment. The patient was seen by Pulmonology. Smoking counseling was done. Recommend sleep study and the patient was feeling better. She is anxious to go home. Recommend event monitor. The patient c/o of palpitations. FINAL DIAGNOSES: 1. Chest pain. Skeleton muscular. No evidence of cardiac ischemia at this time. 2. Known history of coronary artery disease, single vessel disease, 50% right coronary, recommend medical treatment. 3. Obstructive sleep apnea. 4. Smoking addiction. 5. Chronic obstructive pulmonary disease. 6. Arthritis. Smoking counseling was done. DISPOSITION: Home. Recommend outpatient event monitor and pulmonary function tests and sleep study. The patient is up-to-date on flu and pneumonia shots. MIGUEL GUZMAN MD DR: AMY/ishmael JOB#: [id number] / [id number] CARMELA
== END 2018-03-13 15:27 | disposition home or self-care (01) ==
LOC: ER 03:07 → CVICU 04:56
PROVIDERS: ADMIT Internal Medicine; ATTEND Internal Medicine
DX: R07.89 Other chest pain (principal); I10 Essential (primary) hypertension; E78.5 Hyperlipidemia, unspecified; F17.210 Nicotine dependence, cigarettes, uncomplicated; E66.01 Morbid (severe) obesity due to excess calories; I25.10 Atherosclerotic heart disease of native coronary artery without angina pectoris; J44.9 Chronic obstructive pulmonary disease, unspecified; K21.9 Gastro-esophageal reflux disease without esophagitis; K31.84 Gastroparesis; M06.9 Rheumatoid arthritis, unspecified; I25.2 Old myocardial infarction; Z95.5 Presence of coronary angioplasty implant and graft; Z90.49 Acquired absence of other specified parts of digestive tract; Z83.3 Family history of diabetes mellitus; Z82.49 Family history of ischemic heart disease and other diseases of the circulatory system
CPT/HCPCS: 36415; 71045; 80053; 80061; 83036; 83735; 84443; 84484; 85025; 85610; 90471; 90756; 93005; 96374; 96375; 96376; 99285; 99406; G0378; J2270; J2405; G0379; Q2035

== ENCOUNTER → 2018-05-04 | Outpatient (CLI) | payer MEDICARE, OTHER ==
[~2018-05-04] MED LIST changes: +ASPI-630 PO; +FLUT9.9S NS; +HYDR-2145 PO; -HYDR-2758 PO; +HYDR-2761 PO; -HYDR-2762 PO; +HYDR-2765 PO; +HYDR-3164 PO; -HYDR-971 PO; -HYDR25TA9 PO; -LOSA25TA5 PO; +LOSA25TA54 PO; +ONDA4TAB12 PO; -OXYC-323 PO; +OXYC1TAB15 PO
--- NOTE | 2018-05-04 15:52 | KCIC ---
EXAM: Dual energy x-ray absorptiometry (DEXA). HISTORY: Postmenopausal female presents for osteoporosis screening. COMPARISON: None. TECHNIQUE: Dual energy x-ray absorptiometry of the lumbar spine and left hip was performed. Calculation of bone mineral density based on standard deviations above or below the expected young adult normal value (T-score) was completed. FINDINGS: The average bone mineral density in the 1st through 4th lumbar vertebrae is 1.056 g/cmxcm, corresponding with a T-score of 0.1. The average total bone mineral density in the left hip is 0.986 g/cmxcm, corresponding with a T-score of 0.4. IMPRESSION: Normal bone mineral density. Note: Definitions established by the World Health Organization: 1. Normal: T-score is -1.0 or above. 2. Osteopenia: T-score is between -1.0 and -2.5 . 3. Osteoporosis: T-score is -2.5 or below. Electronically signed by: Florencia Wood MD (05/04/2018 3:48 PM) [place] [id number]
--- NOTE | 2018-05-06 09:40 | KCIC ---
History: Routine screening. Technique: Bilateral digital mammographic routine views were obtained with CAD - computer aided detection. Comparison: None. Findings: Breast Tissue Density B :The breast tissue is composed of mixed fatty and fibroglandular tissue. There are no suspicious masses, microcalcifications or areas of architectural distortion. Impression: Negative mammogram. BI-RADS Category 1: Negative. Normal interval followup. A mammogram does not have 100% sensitivity and therefore a negative imaging study should not delay further work up of a suspicious abnormality. The patient will receive a letter with the results in the mail. Patient information is entered into the reminder system with a target due date for the next screening mammogram. The patient will receive a reminder. "Our facility is accredited by the [employer] Mammography Program." Electronically signed by: Agapito Delaney III, MD (05/06/2018 9:36 AM) [id number]
== END | disposition home or self-care (01) ==
LOC: KCIC DEXA 13:58
PROVIDERS: ATTEND Internal Medicine
DX: Z12.31 Encounter for screening mammogram for malignant neoplasm of breast (principal); Z13.820 Encounter for screening for osteoporosis; E28.39 Other primary ovarian failure
CPT/HCPCS: 77067; 77080

== ENCOUNTER → 2018-06-02 | Outpatient (CLI) | payer MEDICARE, OTHER ==
[~2018-06-02] MED LIST changes: +AMLO5TAB10 PO; -AMLO5TAB7 PO; +SENN-161 PO; -SENN1TAB8 PO; +ZOLPIDEM 5 MG TABLET. PO ONE
--- NOTE | 2018-06-03 09:23 | SLEEP ---
DATE OF STUDY: 06/02/2018 ATTENDING PHYSICIAN: Dr. Sahu. REFERRING PHYSICIAN: Dr. Kathleen. The patient is 58 years old who weighs 290 pounds with a BMI of 42. The patient's [place] score was 4. The patient underwent sleep study at [facility] to rule out MARGARET. This was a diagnostic study. During the night study, the patient spent 441 minutes in bed and slept for 255 minutes, with a low sleep efficiency of 61%. Sleep latency was 25 minutes with a REM latency of 104 minutes. Overall, sleep architecture showed increased stage 1 and stage 2 sleep, absent N3 sleep and reduced REM sleep. During the night study, the patient had 6 obstructive apneas, no mixed or central apneas and 26 hypopneas. The patient's apnea-hypopnea index was 8 per hour, supine index 3 per hour and a REM index of 67 per hour. EKG monitoring revealed normal sinus rhythm, average heart rate 80 beats per minute. No arrhythmias observed. Nocturnal oximetry study revealed an average oxygen saturation of 96%, with a lowest of 86%; 1.6% of the time, oxygen saturation remained between 80% and 89% and it was predominantly during REM sleep. PLMS were seen at index of 38 per hour and 7 per hour caused EEG arousals. Due to low AHI, the patient did not meet the criteria for CPAP initiation. IMPRESSION: 1. Mild sleep apnea-hypopnea syndrome with worsening during REM sleep. Total apnea-hypopnea index 8 per hour with a REM AHI of 67 per hour. 2. No clinically significant nocturnal hypoxia. 3. Moderate periodic limb movements of sleep. RECOMMENDATIONS: 1. If the patient is clinically symptomatic, then consider treatment of sleep apnea with either oral appliance or a trial of CPAP titration. 2. Weight loss is strongly advised. 3. Avoid SHAKE LOADER depressants. 4. Caution regarding driving until symptoms of sleep apnea resolve with the above recommendation. 5. The patient should also be further evaluated for symptoms of restless legs during the day. JACY FLORES MD DR: JAREK/ishmael JOB#: [id number] / [id number] Kushal Flores MD, SABATO MD
== END | disposition home or self-care (01) ==
LOC: SLPLAB 19:01
PROVIDERS: ATTEND Internal Medicine Pulmonary Disease
DX: G47.33 Obstructive sleep apnea (adult) (pediatric) (principal); G47.61 Periodic limb movement disorder; E66.3 Overweight; Z68.41 Body mass index [BMI] 40.0-44.9, adult
CPT/HCPCS: 95810

== ENCOUNTER 2018-12-27 17:34 | Emergency (ER) | payer MEDICARE, OTHER ==
[~2018-12-27] VITALS: Ht 180.3 cm; Wt 141.1 kg
[~2018-12-27 17:34] MED LIST changes: -ZOLPIDEM 5 MG TABLET. PO ONE
--- NOTE | 2018-12-27 18:56 | PHYS DOC ---
Past Medical History Past Medical History: Arthritis, GERD, Hypertension, MD, Other Additional Past Medical Histor: RA Past Surgical History: Angioplasty, Cholecystectomy, Other Additional Past Surgical Histo: cyst removed from back, Cardiac stent x2 Alcohol Use: Occasionally Drug Use: None Adult General Chief Complaint Chief Complaint: LOWER EXTREMITY SWELLING HPI HPI 58-year-old female presents with 3 day history of right upper lateral thigh pain and increased warmth. Denies known trauma. Denies fever or chills. Denies overuse. Patient does report history of rheumatoid arthritis. Patient reports these symptoms seem different than normal. 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 Patient does think that her thigh is slightly larger than normal. Patient also reports some shortness of breath which she has at baseline but is slightly increased. Denies chest pain. Review of Systems Review of Systems Constitutional: Denies fever or chills Eyes: Denies redness or eye pain HENT: Denies nasal congestion or sore throat Respiratory: Denies cough; reports shortness of breath Cardiovascular: Denies chest pain or palpitations GI: Denies abdominal pain, nausea, or vomiting : Denies dysuria or hematuria Musculoskeletal: Reports pain and swelling to right thigh Integument: Denies rash or skin lesions Neurologic: Denies headache, focal weakness or sensory changes Complete systems were reviewed and found to be within normal limits, except as documented in this note. Current Medications Current Medications Current Medications Medications (Trade) Dose Ordered Sig/Haylee Start Time Stop Time Status Last Admin Dose Admin Iohexol (Omnipaque 350 Mg/ml) 100 ml 1X ONCE 12/27/18 19:45 12/27/18 19:46 DC 12/27/18 20:27 100 ML Ketorolac Tromethamine (Toradol 15mg Vial) 10 mg 1X ONCE 12/27/18 18:45 12/27/18 18:46 DC 12/27/18 19:11 10 MG Ondansetron HCl (Zofran) 4 mg STK-MED ONCE 12/27/18 19:04 12/27/18 19:05 DC Sodium Chloride 1,000 ml @ 1,000 mls/hr 1X ONCE 12/27/18 18:45 12/27/18 19:44 DC 12/27/18 19:11 1,000 MLS/HR Allergies Allergies Allergies Coded Allergies Type Severity Reaction Last Updated Verified No Known Drug Allergies 07/29/17 No Physical Exam Physical Exam Constitutional: Well developed, well nourished, no acute distress, non-toxic appearance HENT: Normocephalic, atraumatic, oropharynx moist Eyes: Conjunctiva normal, no discharge Neck: Normal range of motion, no tenderness, supple Cardiovascular: Heart rate normal, regular rhythm Lungs & Thorax: Bilateral breath sounds equal, no wheezing, diminished at bases Abdomen: Soft, no tenderness Skin: Warm, dry, no erythema, no rash Extremities: Right lateral thigh tenderness to palpation, ROM intact, trace edema bilaterally Neurologic: Alert and oriented X 3, normal motor function, normal sensory function, no focal deficits noted Psychologic: Affect normal, judgement normal Current Patient Data Vital Signs Vital Signs Date Time Temp Pulse Resp B/P (MAP) Pulse Ox O2 Delivery O2 Flow Rate FiO2 12/27/18 21:55 77 14 148/80 (102) 98 Room Air 12/27/18 18:40 98.6 98.6 Lab Values Laboratory Tests Test 12/27/18 18:40 12/27/18 20:45 White Blood Count 9.5 x10^3/uL (4.0-11.0) Red Blood Count 4.33 x10^6/uL (3.50-5.40) Hemoglobin 12.7 g/dL (12.0-15.5) Hematocrit 38.7 % (36.0-47.0) Mean Corpuscular Volume 89 fL (79-100) Mean Corpuscular Hemoglobin 29 pg (25-35) Mean Corpuscular Hemoglobin Concent 33 g/dL (31-37) Red Cell Distribution Width 14.8 % (11.5-14.5) H Platelet Count 310 x10^3/uL (140-400) Neutrophils (%) (Auto) 63 % (31-73) Lymphocytes (%) (Auto) 30 % (24-48) Monocytes (%) (Auto) 6 % (0-9) Eosinophils (%) (Auto) 1 % (0-3) Basophils (%) (Auto) 0 % (0-3) Neutrophils # (Auto) 5.9 x10^3/uL (1.8-7.7) Lymphocytes # (Auto) 2.9 x10^3/uL (1.0-4.8) Monocytes # (Auto) 0.5 x10^3/uL (0.0-1.1) Eosinophils # (Auto) 0.1 x10^3/uL (0.0-0.7) Basophils # (Auto) 0.0 x10^3/uL (0.0-0.2) Prothrombin Time 12.4 SEC (11.7-14.0) Prothrombin Time INR 1.0 (0.8-1.1) Activated Partial Thromboplast Time 27 SEC (24-38) D-Dimer (Viji) 0.99 ug/mlFEU (0.00-0.50) H Sodium Level 142 mmol/L (136-145) Potassium Level 3.7 mmol/L (3.5-5.1) Chloride Level 105 mmol/L (98-107) Carbon Dioxide Level 28 mmol/L (21-32) Anion Gap 9 (6-14) Blood Urea Nitrogen 12 mg/dL (7-20) Creatinine 1.1 mg/dL (0.6-1.0) H Estimated GFR (Cockcroft-Gault) 61.7 BUN/Creatinine Ratio 11 (6-20) Glucose Level 96 mg/dL (70-99) Lactic Acid Level 1.5 mmol/L (0.4-2.0) Calcium Level 8.7 mg/dL (8.5-10.1) Magnesium Level 2.1 mg/dL (1.8-2.4) Total Bilirubin 0.3 mg/dL (0.2-1.0) Aspartate Amino Transferase (AST) 21 U/L (15-37) Alanine Aminotransferase (ALT) 27 U/L (14-59) Alkaline Phosphatase 116 U/L (46-116) Creatine Kinase 544 U/L (26-192) H Creatine Kinase MB (Mass) 2.2 ng/mL (0.0-3.6) Creatine Kinase MB Relative Index 0.4 % (0-4) Troponin I Quantitative < 0.017 ng/mL (0.000-0.055) < 0.017 ng/mL (0.000-0.055) NW-Ias-C-Type Natriuretic Peptide 314 pg/mL (0-124) H Total Protein 7.8 g/dL (6.4-8.2) Albumin 3.6 g/dL (3.4-5.0) Albumin/Globulin Ratio 0.9 (1.0-1.7) L Laboratory Tests 12/27/18 18:40 Laboratory Tests 12/27/18 18:40 EKG EKG @1950 NSR at 82bpm, NO ST elevation, nonspecific t wave inversion III Radiology/Procedures Radiology/Procedures PROCEDURE: VENOUS LOWER EXTREMITY RIGHT EXAM: Right lower extremity venous Doppler. HISTORY: Right lower extremity pain/swelling. COMPARISON: None. FINDINGS: Grayscale and Doppler analysis of the right lower extremity deep venous system was performed with graded compression and augmentation. The common femoral, greater saphenous, superficial femoral, popliteal and calf veins were assessed. There is no evidence of deep venous thrombosis. IMPRESSION: 1. No evidence of deep venous thrombosis. Electronically signed by: Joya Farfan MD (12/27/2018 7:58 PM) [facility] PROCEDURE: CT ANGIOGRAPHY CHEST Exam: CT of chest with contrast INDICATION: Shortness of breath, history of DVT TECHNIQUE: Sequential axial images through the chest obtained following the administration of 100 mL of Omni 350 IV contrast. Sagittal and coronal reformatted images were reconstructed from the axial data and reviewed. 3-D reformatted images were reconstructed from the axial data and reviewed. Comparisons: None FINDINGS: Visualized portions of the thyroid are unremarkable. No enlarged mediastinal lymph nodes are identified. Heart size is normal. No pericardial effusion. Thoracic aorta has a normal course and caliber. Pulmonary artery is not enlarged. Evaluation for pulmonary embolus is mildly limited secondary to contrast bolus timing. No pulmonary embolus identified within the main, lobar or proximal segmental pulmonary arteries. Airways are patent. No consolidation or pneumothorax. Strandy opacities at the dependent portion of the lung bases likely representing atelectasis. 4 mm nodule in the left lower lobe series 3 image 64. No pleural effusion or thickening. Visualized upper abdomen is unremarkable. No suspicious osseous lesions or acute fractures. IMPRESSION: 1. No pulmonary embolus identified within the main, lobar or proximal segmental pulmonary arteries. Limitations as described above. 2. A 4 mm nodule in the left lower lobe. In a low-risk patient no further follow-up imaging is recommended. In a high-risk patient and optional one-year follow-up CT chest can be performed. Exposure: One or more of the following in the visualized dose reduction techniques were utilized for this examination: 1. Automated exposure control 2. Adjustment of the MA and/or KV according to patient size 3. Use of iterative of reconstructive technique Electronically signed by: Rosa Gandhi MD (12/27/2018 9:03 PM) [facility] Course & Med Decision Making Course & Med Decision Making Pertinent Labs and Imaging studies reviewed. (See chart for details) Patient with past medical history of PE/DVT presents with right lateral thigh tenderness on palpation. Denies known trauma. Denies redness. Patient does report some increased swelling to this area however looks very similar in comparison to other leg. Patient also reports some shortness of air. EKG stable. Labs obtained and posted to chart. Troponin WNL x 2. D-dimer elevated. Venous Doppler negative. CTA chest without acute signs of PE or infection. Incidental pulmonary nodule noted. A copy of CT imaging given to patient to give to PCP for future follow-up. Patient stable for discharge with outpatient follow-up with PCP. Discussed findings and plan with patient, who acknowledges understanding and agreement. Dragon Disclaimer Dragon Disclaimer This electronic medical record was generated, in whole or in part, using a voice recognition dictation system. Departure Departure Impression: Primary Impression: Right thigh pain Additional Impressions: Shortness of breath Incidental pulmonary nodule Hx of rheumatoid arthritis Disposition: HOME, SELF-CARE Condition: STABLE Referrals: MIGUEL GUZMAN MD (PCP) Patient Instructions: Muscle Strain, [id number], Pulmonary Nodule, [id number]-Psma, Rheumatoid Arthritis, [id number], Shortness of Breath, Lqey-sn-Nsgx Additional Instructions: Use over the counter Ibuprofen or Tylenol for pain. ICE area 20 min on then leave off for next 20 min as needed for the next few days. Scripts Orphenadrine Citrate (ORPHENADRINE CITRATE) 100 Mg Tablet.er 100 MG PO BID PRN for MUSCLE PAIN, #14 Prov: ALESSIO KHALIL DO 12/27/18 Problem Qualifiers ALESSIO KHALIL DO Dec 27, 2018 18:56
[2018-12-27] MEDS ORDERED: ONDANSETRON PF 4 MG/2 ML VIAL. ONE (19:04)
[2018-12-27 19:07] LABS: BASO % 0 % (0-3); EOS # 0.1 x10^3/uL (0.0-0.7); EOS % 1 % (0-3); HEMATOCRIT 38.7 % (36.0-47.0); HEMOGLOBIN 12.7 g/dL (12.0-15.5); LYMPH # 2.9 x10^3/uL (1.0-4.8); LYMPH % 30 % (24-48); MEAN CORPUSCULAR HEMOGLOBIN 29 pg (25-35); MEAN CORPUSCULAR HGB CONC 33 g/dL (31-37); MEAN CORPUSCULAR VOLUME 89 fL (79-100); MONO # 0.5 x10^3/uL (0.0-1.1); MONO % 6 % (0-9); NEUT # 5.9 x10^3/uL (1.8-7.7); NEUT % 63 % (31-73); PLATELET COUNT 310 x10^3/uL (140-400); RED BLOOD COUNT 4.33 x10^6/uL (3.50-5.40); RED CELL DISTRIBUTION WIDTH 14.8 % (11.5-14.5); WHITE BLOOD COUNT 9.5 x10^3/uL (4.0-11.0)
[2018-12-27] MEDS: KETOROLAC 15 MG/ML VIAL. IV ONE (19:10)
[2018-12-27] MEDS: IV NORMAL SALINE 1000ML BAG 1,000 ML IV ONE (19:10)
[2018-12-27] MEDS: ONDANSETRON PF 4 MG/2 ML VIAL. IV ONE (19:11)
[2018-12-27 19:19] LABS: CALCIUM 8.7 mg/dL (8.5-10.1); CREATININE 1.1 mg/dL (0.6-1.0); GFR 61.7; POTASSIUM 3.7 mmol/L (3.5-5.1)
[2018-12-27 19:24] LABS: ALBUMIN 3.6 g/dL (3.4-5.0); ALBUMIN/GLOBULIN RATIO 0.9 (1.0-1.7); MAGNESIUM 2.1 mg/dL (1.8-2.4); TOTAL BILIRUBIN 0.3 mg/dL (0.2-1.0); TOTAL PROTEIN 7.8 g/dL (6.4-8.2)
[2018-12-27 19:49] LABS: PROTHROMBIN TIME PATIENT 12.4 SEC (11.7-14.0)
--- NOTE | 2018-12-27 20:00 | RAD ---
EXAM: Right lower extremity venous Doppler. HISTORY: Right lower extremity pain/swelling. COMPARISON: None. FINDINGS: Grayscale and Doppler analysis of the right lower extremity deep venous system was performed with graded compression and augmentation. The common femoral, greater saphenous, superficial femoral, popliteal and calf veins were assessed. There is no evidence of deep venous thrombosis. IMPRESSION: 1. No evidence of deep venous thrombosis. Electronically signed by: Joya Farfan MD (12/27/2018 7:58 PM) [facility]
[2018-12-27] MEDS: IOHEXOL 350 MG/ML 100 ML VIAL. IV ONE (20:19)
--- NOTE | 2018-12-27 21:05 | RAD ---
Exam: CT of chest with contrast INDICATION: Shortness of breath, history of DVT TECHNIQUE: Sequential axial images through the chest obtained following the administration of 100 mL of Omni 350 IV contrast. Sagittal and coronal reformatted images were reconstructed from the axial data and reviewed. 3-D reformatted images were reconstructed from the axial data and reviewed. Comparisons: None FINDINGS: Visualized portions of the thyroid are unremarkable. No enlarged mediastinal lymph nodes are identified. Heart size is normal. No pericardial effusion. Thoracic aorta has a normal course and caliber. Pulmonary artery is not enlarged. Evaluation for pulmonary embolus is mildly limited secondary to contrast bolus timing. No pulmonary embolus identified within the main, lobar or proximal segmental pulmonary arteries. Airways are patent. No consolidation or pneumothorax. Strandy opacities at the dependent portion of the lung bases likely representing atelectasis. 4 mm nodule in the left lower lobe series 3 image 64. No pleural effusion or thickening. Visualized upper abdomen is unremarkable. No suspicious osseous lesions or acute fractures. IMPRESSION: 1. No pulmonary embolus identified within the main, lobar or proximal segmental pulmonary arteries. Limitations as described above. 2. A 4 mm nodule in the left lower lobe. In a low-risk patient no further follow-up imaging is recommended. In a high-risk patient and optional one-year follow-up CT chest can be performed. Exposure: One or more of the following in the visualized dose reduction techniques were utilized for this examination: 1. Automated exposure control 2. Adjustment of the MA and/or KV according to patient size 3. Use of iterative of reconstructive technique Electronically signed by: Rosa Gandhi MD (12/27/2018 9:03 PM) [facility]
[2018-12-27 21:55] VITALS: BP 148/80
[2018-12-27] MEDS ORDERED: ORPH100T PO (22:06)
--- NOTE | 2018-12-28 06:58 | EKG ---
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
== END 2018-12-27 22:19 | disposition home or self-care (01) ==
LOC: ER 17:34
DX: M79.651 Pain in right thigh (principal); R06.02 Shortness of breath; R91.1 Solitary pulmonary nodule; M06.9 Rheumatoid arthritis, unspecified; K21.9 Gastro-esophageal reflux disease without esophagitis; I10 Essential (primary) hypertension; I25.2 Old myocardial infarction; Z90.49 Acquired absence of other specified parts of digestive tract; Z95.1 Presence of aortocoronary bypass graft; Z95.5 Presence of coronary angioplasty implant and graft
CPT/HCPCS: 36415; 71275; 80053; 82553; 83605; 83735; 83880; 84484; 85025; 85379; 85610; 85730; 93005; 93971; 96374; 96375; 99285; J1885; J2405; J7030; Q9967; 96361

== ENCOUNTER → 2019-01-08 | Outpatient (CLI) | payer MEDICARE, OTHER ==
[2018-12-27 21:55] VITALS: BP 148/80
[~2019-01-08] MED LIST changes: +ORPH100T PO
--- NOTE | 2019-01-08 14:38 | KCIC ---
LUMBAR SPINE WO CONTRAST History: Low back pain. Bilateral leg pain. Technique: Multiplanar, multi sequential MR imaging was performed of the lumbar spine. Comparison: None Findings: Mild leftward curvature of the lumbar spine. Otherwise, normal alignment. Normal vertebral body height. No fracture. No pathologic marrow replacing process. Conus terminates at the normal location. No evidence of nerve root clumping. L1-L2: Small posterior disc bulge. Mild facet arthropathy. No canal or neuroforaminal narrowing. L2-L3: Small posterior disc bulge. Moderate facet arthropathy. Bilateral facet joint effusions. No canal or neuroforaminal narrowing. L3-L4: Small posterior disc bulge. Advanced facet arthropathy. Ligament of flavum thickening. No canal narrowing. Right foraminal disc extrusion. Moderate right neuroforaminal narrowing with abutment of the exiting right L3 nerve root. Mild left neural foraminal narrowing. L4-L5: Small posterior disc bulge superimposed small right subarticular disc extrusion extending slightly superiorly. Mild right neuroforaminal narrowing. Advanced facet arthropathy. No canal narrowing. L5-S1: Small posterior disc bulge. Advanced facet arthropathy. No canal narrowing. Mild bilateral neuroforaminal narrowing. Impression: 1. Multilevel lumbar spondylosis with advanced lower lumbar facet arthropathy. 2. L3-L4 right moderate neural foraminal narrowing. Correlate for right L3 radiculopathy. 3. Additional multilevel neural foraminal narrowing. Electronically signed by: Anthony Bhatti DO (01/08/2019 2:35 PM) [facility]
== END | disposition home or self-care (01) ==
LOC: KCIC MRI 11:33
PROVIDERS: ATTEND Internal Medicine
DX: M51.27 Other intervertebral disc displacement, lumbosacral region (principal); M48.07 Spinal stenosis, lumbosacral region; M47.816 Spondylosis without myelopathy or radiculopathy, lumbar region; M12.88 Other specific arthropathies, not elsewhere classified, other specified site; F40.240 Claustrophobia
CPT/HCPCS: 72148

== ENCOUNTER 2020-01-19 21:43 | Observation (INO) | payer MEDICARE, OTHER ==
[~2020-01-19] VITALS: Ht 180.3 cm; Wt 145.6 kg
[~2020-01-19 21:43] MED LIST changes: -CETI10TA22 PO; +CETI10TA74 PO; -DICL100G18 TP; +DICL100G54 TP; -NITR0.4T SL; +NITR0.4T24 SL
[2020-01-19] MEDS ORDERED: diazePAM 5 MG TABLET PO ONE (22:00)
--- NOTE | 2020-01-19 22:02 | PHYS DOC ---
Past Medical History Past Medical History: Arthritis, GERD, Hypertension, SC, Other Additional Past Medical Histor: RA Past Surgical History: Angioplasty, Cholecystectomy, Other Additional Past Surgical Histo: cyst removed from back, Cardiac stent x2 Smoking Status: Current Every Day Smoker Alcohol Use: Occasionally Drug Use: None General Adult EDM: Chief Complaint: NECK PAIN HPI: HPI: Patient is a 59 year old female presents with right-sided constant neck pain since 9:00 this morning. Patient states it is an ache in her neck and 10 out of 10 in severity and radiates down her right arm. Patient states it is similar to when she had a heart attack a couple years ago. Patient has some nausea and shortness of breath. Symptoms are worse with movement of the neck. Patient denies any recent fevers chills cough vomiting or diarrhea. Review of Systems: Review of Systems: Constitutional: Denies fever or chills. [] Eyes: Denies change in visual acuity. [] HENT: Denies nasal congestion or sore throat. [] Respiratory: Denies cough but has some shortness of breath. [] Cardiovascular: Denies chest pain or edema. [] GI: Denies abdominal pain, , vomiting, bloody stools or diarrhea. [] Patient has some mild nausea : Denies dysuria. [] Musculoskeletal: Denies back pain but complains of right-sided neck pain Integument: Denies rash. [] Neurologic: Denies headache, focal weakness or sensory changes. [] Endocrine: Denies polyuria or polydipsia. [] Lymphatic: Denies swollen glands. [] Psychiatric: Denies depression or anxiety. [] Heart Score: HEART Score for Chest Pain: HEART Score for Chest Pain Response (Comments) Value History Slighlty/Non-Suspicious 0 ECG Nonspecific Repolarizatio 1 Age >45 - < 65 1 Risk Factors >3 Risk Factors or Hx CAD 2 Total 4 Risk Factors: Risk Factors: DM, Current or recent (<one month) smoker, HTN, HLP, family history of CAD, obesity. Risk Scores: Score 0 - 3: 2.5% MACE over next 6 weeks - Discharge Home Score 4 - 6: 20.3% MACE over next 6 weeks - Admit for Clinical Observation Score 7 - 10: 72.7% MACE over next 6 weeks - Early Invasive Strategies Current Medications: Current Medications Medications (Trade) Dose Ordered Sig/Haylee Start Time Stop Time Status Last Admin Dose Admin Diazepam (Valium) 5 mg 1X ONCE 01/19/20 22:00 01/19/20 22:01 Allergies: Allergies: Allergies Coded Allergies Type Severity Reaction Last Updated Verified No Known Drug Allergies 07/29/17 No Physical Exam: PE: Constitutional: Well developed, well nourished, no acute distress, non-toxic appearance. [] HENT: Normocephalic, atraumatic, bilateral external ears normal, no trismus nose normal. [] Eyes: PERRLA, EOMI, conjunctiva normal, no discharge. [] Neck: Limited range of motion due to pain tenderness to palpate along the right sided posterior neck Cardiovascular:Heart rate regular rhythm, peripheral pulses intact, cap refill brisk Lungs & Thorax: Bilateral breath sounds clear, no respiratory distress Abdomen: , soft, no tenderness, no masses, no pulsatile masses. [] Skin: Warm, dry, no erythema, no rash. [] Back: No tenderness, no CVA tenderness. [] Extremities: No tenderness, no cyanosis, no clubbing, ROM intact, no edema. [] Neurologic: Alert and oriented X 3, normal motor function, normal sensory function, no focal deficits noted. [] Psychologic: Affect normal, judgement normal, mood normal. [] Current Patient Data: Labs: Laboratory Tests Test 01/19/20 22:30 White Blood Count 7.7 x10^3/uL Red Blood Count 4.23 x10^6/uL Hemoglobin 12.9 g/dL Hematocrit 38.4 % Mean Corpuscular Volume 91 fL Mean Corpuscular Hemoglobin 30 pg Mean Corpuscular Hemoglobin Concent 34 g/dL Red Cell Distribution Width 14.9 % Platelet Count 242 x10^3/uL Neutrophils (%) (Auto) 55 % Lymphocytes (%) (Auto) 39 % Monocytes (%) (Auto) 4 % Eosinophils (%) (Auto) 2 % Basophils (%) (Auto) 1 % Neutrophils # (Auto) 4.2 x10^3/uL Lymphocytes # (Auto) 3.0 x10^3/uL Monocytes # (Auto) 0.3 x10^3/uL Eosinophils # (Auto) 0.1 x10^3/uL Basophils # (Auto) 0.1 x10^3/uL Sodium Level 138 mmol/L Potassium Level 3.7 mmol/L Chloride Level 105 mmol/L Carbon Dioxide Level 27 mmol/L Anion Gap 6 Blood Urea Nitrogen 10 mg/dL Creatinine 0.8 mg/dL Estimated GFR (Cockcroft-Gault) 88.8 BUN/Creatinine Ratio 13 Glucose Level 92 mg/dL Calcium Level 8.6 mg/dL Total Bilirubin 0.3 mg/dL Aspartate Amino Transf (AST/SGOT) 19 U/L Alanine Aminotransferase (ALT/SGPT) 23 U/L Alkaline Phosphatase 102 U/L Troponin I Quantitative < 0.017 ng/mL Total Protein 7.4 g/dL Albumin 3.6 g/dL Albumin/Globulin Ratio 0.9 Lipase 85 U/L Current Medications Medications (Trade) Dose Ordered Sig/Haylee Route PRN Reason Start Time Stop Time Status Last Admin Dose Admin Diazepam (Valium) 5 mg 1X ONCE PO 01/19/20 22:00 01/19/20 22:01 DC 01/19/20 22:37 Aspirin (Aspirin Chewable) 324 mg 1X ONCE PO 01/19/20 23:45 01/19/20 23:46 DC Morphine Sulfate (Morphine Sulfate) 4 mg 1X ONCE IV 01/20/20 00:00 01/20/20 00:01 DC Vital Signs: Vital Signs Date Time Temp Pulse Resp B/P (MAP) Pulse Ox O2 Delivery O2 Flow Rate FiO2 01/19/20 21:46 98.8 68 16 176/103 (127) 100 Room Air 98.8 EKG: EKG: EKG interpreted by me normal sinus rhythm with rate of 72 left axis deviation prolonged QTC nonspecific ST changes [] Radiology/Procedures: Radiology/Procedures: [][facility] [address] [place] [address] IMAGING REPORT Signed PATIENT: DEAN TREVIZO TACCOUNT: [id number] : 1960 LOCATION: ER AGE: 59 SEX: F EXAM STATUS: REG ER ORD. PHYSICIAN: IRMA DE OLIVEIRA MD REASON: neck pain PROCEDURE: PORTABLE CHEST 1V PORTABLE CHEST 1V History: Reason: neck pain / Spl. Instructions: / History: Comparison: March 13, 2018 Findings: No consolidation or pleural effusion. Normal heart size. No pneumothorax. Impression: 1. No acute cardiopulmonary process. Electronically signed by: Anthony Bhatti DO (01/19/2020 10:45 PM) [facility] DICTATED and SIGNED BY: ANTHONY BHATTI DO DATE: 01/19/202244 Course & Med Decision Making: Course & Med Decision Making Pertinent Labs and Imaging studies reviewed. (See chart for details) [] 59-year-old female with history of coronary disease presents with atypical right-sided neck pain with shortness of breath and nausea that is similar to her prior MIs. EKG and troponins negative but due to her extensive history she will be placed in the hospital for a prolonged rule out SC. will admit. Dragon Disclaimer: Dragon Disclaimer: This electronic medical record was generated, in whole or in part, using a voice recognition dictation system. Departure Departure Impression: Primary Impression: Neck pain Disposition: ADMITTED INPATIENT Condition: STABLE Referrals: MIGUEL GUZMAN MD (PCP) Justicifation of Admission Dx: Justifications for Admission: Justification of Admission Dx: Yes (NECK PAIN FERNIE) IRMA DE OLIVEIRA MD Jan 19, 2020 22:01
[2020-01-19 22:42] LABS: BASO # 0.1 x10^3/uL (0.0-0.2); BASO % 1 % (0-3); EOS # 0.1 x10^3/uL (0.0-0.7); EOS % 2 % (0-3); HEMATOCRIT 38.4 % (36.0-47.0); HEMOGLOBIN 12.9 g/dL (12.0-15.5); LYMPH % 39 % (24-48); MEAN CORPUSCULAR HEMOGLOBIN 30 pg (25-35); MEAN CORPUSCULAR HGB CONC 34 g/dL (31-37); MEAN CORPUSCULAR VOLUME 91 fL (79-100); MONO # 0.3 x10^3/uL (0.0-1.1); MONO % 4 % (0-9); NEUT # 4.2 x10^3/uL (1.8-7.7); NEUT % 55 % (31-73); PLATELET COUNT 242 x10^3/uL (140-400); RED BLOOD COUNT 4.23 x10^6/uL (3.50-5.40); RED CELL DISTRIBUTION WIDTH 14.9 % (11.5-14.5); WHITE BLOOD COUNT 7.7 x10^3/uL (4.0-11.0)
--- NOTE | 2020-01-19 22:48 | RAD ---
PORTABLE CHEST 1V History: Reason: neck pain / Spl. Instructions: / History: Comparison: March 13, 2018 Findings: No consolidation or pleural effusion. Normal heart size. No pneumothorax. Impression: 1. No acute cardiopulmonary process. Electronically signed by: Anthony Bhatti DO (01/19/2020 10:45 PM) [facility]
[2020-01-19 22:51] LABS: CALCIUM 8.6 mg/dL (8.5-10.1); CREATININE 0.8 mg/dL (0.6-1.0); GFR 88.8; POTASSIUM 3.7 mmol/L (3.5-5.1)
--- NOTE | 2020-01-19 22:51 | EKG ---
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
[2020-01-19 22:56] LABS: ALBUMIN 3.6 g/dL (3.4-5.0); ALBUMIN/GLOBULIN RATIO 0.9 (1.0-1.7); TOTAL BILIRUBIN 0.3 mg/dL (0.2-1.0); TOTAL PROTEIN 7.4 g/dL (6.4-8.2)
[2020-01-19] MEDS ORDERED: ASPIRIN CHEWABLE 81 MG TABLET. PO ONE (23:45)
[2020-01-20] MEDS ORDERED: MORPHINE SULFATE 4 MG/ML VIAL. IV PRN
[2020-01-20] MEDS ORDERED: MORPHINE SULFATE 4 MG/ML VIAL. IV ONE
[2020-01-20] MEDS ORDERED: ONDANSETRON PF 4 MG/2 ML VIAL. IV PRN
[2020-01-20 04:56] VITALS: BP 160/104
[2020-01-20 05:47] VITALS: BP 152/101
[2020-01-20 07:00] VITALS: BP 133/80
[2020-01-20] MEDS ORDERED: SENNOSIDES/DOCUSATE 8.6/50MG TABLET. PO PRN (08:15)
[2020-01-20] MEDS ORDERED: NITROGLYCERIN SUBLINGUAL 0.4 MG BOTTLE OF 25. SL PRN (08:15)
--- NOTE | 2020-01-20 08:23 | PDOC ---
Provider Note Date of Service: DATE: 01/20/20 TIME: 08:23 Provider Note Pt seen.H&P dictated.#[id number]. Justifications for Admission Other Justification MIGUEL GUZMAN MD Jan 20, 2020 08:23
[2020-01-20] MEDS ORDERED: CYCLOBENZAPRINE 10 MG TABLET. PO PRN (08:30)
[2020-01-20] MEDS ORDERED: IBUPROFEN 400 MG TABLET. PO PRN (08:30)
--- NOTE | 2020-01-20 08:57 | HP ---
ADMIT DATE: 01/20/2020 LOCATION: 517. REASON FOR ADMISSION TO THE HOSPITAL: Pain in the neck area, worried about possible coronary event. The patient has a single vessel coronary artery disease. HISTORY OF PRESENT ILLNESS: The patient is a 59-year-old female. She goes between and [place] for cardiac workup. The last time she was here approximately less than 2 years ago, she had a cardiac cath, which shows single-vessel right coronary [id number] percent blockage in the right coronary, good left ventricular function. The patient is on Plavix. The patient also seen at last year, no significant blockage. She was having pain in the neck. She says it is hard for her to move her neck. She woke up and the worse by the evening, she came to the Emergency Room. Cardiac enzymes and EKG were negative and there is no radiation. The patient has a history of rheumatoid arthritis; sees Dr. Naranjo, multimedia author. PAST MEDICAL HISTORY: History of cardiac cath, gallbladder surgery, and questionable cardiac stent as far as she remember. She did not have any stents here. She has arthritis and GERD. PAST SURGICAL HISTORY: As mentioned above. ALLERGIES: No known allergies. MEDICATIONS AT HOME: The patient is on amlodipine 5 mg daily, aspirin 81 mg daily, atorvastatin 40 mg daily, Plavix 75 mg daily, Voltaren gel daily, fluticasone daily, ibuprofen 80 mg q. 6 hours, losartan 100/12.5 daily, metoprolol 50 mg twice a day, nicotine patch daily, Nitro p.r.n., Zofran 4 mg p.r.n., orphenadrine 100 mg muscle relaxer twice a day, pantoprazole 40 mg daily, MiraLax 17 grams daily, senna daily. PERSONAL HISTORY: Smoker, half a pack for 30 years. Denies alcohol or street drugs. FAMILY HISTORY: Positive for heart disease, diabetes, and arthritis. REVIEW OF SYMPTOMS: No chest pain. No shortness of breath. Only pain in movement of the neck. Rest of her systems was reviewed and negative. PHYSICAL EXAMINATION: GENERAL: Pleasant, not in any distress. VITAL SIGNS: Temperature 98, pulse 80, respirations 20, blood pressure 160/104, 98 on room air. HEENT: Head is atraumatic. Pupils equal. Oral cavity: No teeth. NECK: Supple. Had some torticollis with some restricted movement on the extremities on the right side. No mass palpable. CHEST: Symmetrical. CARDIOVASCULAR: S1, S2. LUNGS: Clear. ABDOMEN: Soft, bowel sounds present, no mass palpable. EXTERNAL GENITALIA: No Diaz. RECTAL: Deferred. EXTREMITIES: No calf tenderness. No edema. Pulses 1+. NEUROLOGIC: Moving all extremities. No focal deficits noted. LABORATORY DATA: Shows a white count of 7, hemoglobin 13, platelets 244. Electrolytes: Sodium 138, potassium 3.7, 105 chloride, bicarb 27, BUN 10, creatinine 0.8, glucose 92. Troponin 0.017, two times was negative. Chest x-ray: No acute process. FINAL IMPRESSION: 1. Chest and neck discomfort, probably are torticollis. She has a history of rheumatoid arthritis. 2. Known history of coronary artery disease, single-vessel right coronary artery 60%. 3. Hypertension. 4. Hyperlipidemia. 5. Smoker. PLAN: At this time, admit to the hospital. monitoring and evaluation advisor, cardiac enzymes, Cardiology consultation and will have x-ray of the C-spine and she can go home. Probably, if she needs further cardiac workup, could be done as an outpatient. MIGUEL GUZMAN MD DR: AMY/ishmael JOB#: [id number] / [id number]
[2020-01-20] MEDS ORDERED: DICLOFENAC SODIUM 1% TOPICAL GEL 100GM TUBE. TP SCH (09:00)
[2020-01-20] MEDS ORDERED: LOSARTAN POTASSIUM 50 MG TABLET. PO SCH (09:00)
[2020-01-20] MEDS ORDERED: ONDANSETRON ODT 4 MG TAB.RAPDIS. PO SCH (09:00)
[2020-01-20] MEDS ORDERED: ASPIRIN CHEWABLE 81 MG TABLET. PO SCH (09:00)
[2020-01-20] MEDS ORDERED: FLUTICASONE 50MCG/NASAL SPRAY 16GM BOTTLE. NS SCH (09:00)
[2020-01-20] MEDS ORDERED: POLYETHYLENE GLYCOL 3350 17 GM PACKET. PO SCH (09:00)
[2020-01-20] MEDS ORDERED: NICOTINE 14MG PATCH. TD SCH (09:00)
[2020-01-20] MEDS ORDERED: METOPROLOL TART IMMED RELEASE 50 MG TABLET. PO SCH (09:00)
[2020-01-20] MEDS ORDERED: hydroCHLOROthiazide 12.5 MG CAPSULE PO SCH (09:00)
[2020-01-20] MEDS ORDERED: FLU VACC QS 2020-21(6MOS+)/PF 0.5 ML SYRINGE. VAX IM ONE (09:00)
--- NOTE | 2020-01-20 09:59 | NUR ---
SW following. Discussed with RN, discharge order for home with self care, after pt has been seen by cardiology. RN advised no SW needs.
[2020-01-20 10:48] VITALS: BP 138/72
--- NOTE | 2020-01-20 11:31 | PDOC2 ---
CALVIN ROBLES PLANT TECHNICIAN/CONTROL ROOM OPERATOR 01/20/20 1131: CARDIAC CONSULT DATE OF CONSULT Date of Consult DATE: 01/20/20 TIME: 11:24 REASON FOR CONSULT Reason for Consult: Rule out IN REFERRING PHYSICIAN Referring Physician: Dr. Springer SOURCE Source: Chart review, Patient HISTORY OF PRESENT ILLNESS HISTORY OF PRESENT ILLNESS This is a 59 yo female who presented with neck pain. Patient reports she woke up with one morning last week. Has progressively worsened throughout the week. Decided to come to the ED for further evaluation and treatment. Reports having similar pain and experiencing heart attack in May of 2017. Underwent cardiac cath at that time, which did not show any significant obstructive disease. Had repeat cath at 06/22 with showed again mild, non-obstructive disease. PAST MEDICAL HISTORY Past Medical History Cardiovascular: HTN, Hyperlipidemia, CAD CENTRAL NERVOUS SYSTEM: Other (No pertinent history) GI: GERD, GI bleed, gastroparesis Heme/Onc: Anemia NOS Psych: No pertinent hx Musculoskeletal: Osteoarthritis Rheumatologic: Rheumatoid arthritis (psoriatic) ENT: No pertinent hx Renal/: No pertinent hx Endocrine: No pertinent hx Dermatology: Psoriasis PAST SURGICAL HISTORY Past Surgical History Cholecystectomy, Tubal Ligation, Other (neck cyst removal; achilles repair), [facility] 05/2017 FAMILY HISTORY Family History Other (daughter with premature cardiomyopathy and AICD; sickle cell) SOCIAL HISTORY Social History Smoke: <1 pack per day ALCOHOL: none Drugs: None Lives: with Family CURRENT MEDICATIONS CURRENT MEDICATIONS Current Medications Medications (Trade) Dose Ordered Sig/Haylee Route PRN Reason Start Time Stop Time Status Last Admin Dose Admin Diazepam (Valium) 5 mg 1X ONCE PO 01/19/20 22:00 01/19/20 22:01 DC 01/19/20 22:37 Aspirin (Aspirin Chewable) 324 mg 1X ONCE PO 01/19/20 23:45 01/19/20 23:46 DC 01/20/20 00:12 Morphine Sulfate (Morphine Sulfate) 4 mg 1X ONCE IV 01/20/20 00:00 01/20/20 00:01 DC 01/20/20 00:13 Morphine Sulfate (Morphine Sulfate) 4 mg PRN Q2HR PRN IV PAIN 01/20/20 00:00 01/20/20 23:59 01/20/20 04:54 Aspirin (Aspirin Chewable) 81 mg DAILY PO 01/20/20 09:00 01/20/20 09:14 Metoprolol Tartrate (Lopressor) 100 mg BID PO 01/20/20 09:00 01/20/20 09:13 Nicotine (Nicoderm Cq 14mg) 1 patch DAILY TD 01/20/20 09:00 01/20/20 09:16 Ondansetron HCl (Zofran Odt) 4 mg Q12HR PO 01/20/20 09:00 01/20/20 09:13 Polyethylene Glycol (miraLAX PACKET) 17 gm DAILY PO 01/20/20 09:00 01/20/20 09:16 Cyclobenzaprine HCl (Flexeril) 10 mg PRN Q8HRS PRN PO MUSCLE SPASMS 01/20/20 08:30 01/20/20 09:22 Hydrochlorothiazide (Microzide) 12.5 mg DAILY PO 01/20/20 09:00 01/20/20 09:13 ALLERGIES ALLERGIES: Coded Allergies: No Known Drug Allergies (Unverified , 07/29/17) ROS Review of System 14 point ROS evaluated with pertinent positives noted per HPI PHYSICAL EXAM PHYSICAL EXAM General: Alert, Oriented X3, Cooperative, No acute distress HEENT: Atraumatic, Mucous membr. moist/pink Lungs: Clear to auscultation, Normal air movement Heart: Regular rate (SR with no significant ectopies), Normal S1, Normal S2, Other (2/6 systolic murmur to LLS border ) Abdomen: Soft, No tenderness Extremities: No cyanosis, No edema Skin: No breakdown, No significant lesion Neuro: Normal speech, Sensation intact Psych/Mental Status: Mental status NL, Other (anxiety) MUSCULOSKELETAL: Osteoarthritic changes both hands VITALS/I&O VITALS/I&O: Vital Signs Date Time Temp Pulse Resp B/P (MAP) Pulse Ox O2 Delivery O2 Flow Rate FiO2 01/20/20 10:48 97.9 68 18 138/72 (94) 99 Room Air 97.9 I & O 01/19/20 01/19/20 01/20/20 15:00 23:00 07:00 Intake Total 60 ml Balance 60 ml LABS Lab: Laboratory Tests Test 01/19/20 22:30 01/20/20 05:37 01/20/20 06:04 01/20/20 08:30 White Blood Count 7.7 x10^3/uL (4.0-11.0) Red Blood Count 4.23 x10^6/uL (3.50-5.40) Hemoglobin 12.9 g/dL (12.0-15.5) Hematocrit 38.4 % (36.0-47.0) Mean Corpuscular Volume 91 fL (79-100) Mean Corpuscular Hemoglobin 30 pg (25-35) Mean Corpuscular Hemoglobin Concent 34 g/dL (31-37) Red Cell Distribution Width 14.9 % (11.5-14.5) H Platelet Count 242 x10^3/uL (140-400) Neutrophils (%) (Auto) 55 % (31-73) Lymphocytes (%) (Auto) 39 % (24-48) Monocytes (%) (Auto) 4 % (0-9) Eosinophils (%) (Auto) 2 % (0-3) Basophils (%) (Auto) 1 % (0-3) Neutrophils # (Auto) 4.2 x10^3/uL (1.8-7.7) Lymphocytes # (Auto) 3.0 x10^3/uL (1.0-4.8) Monocytes # (Auto) 0.3 x10^3/uL (0.0-1.1) Eosinophils # (Auto) 0.1 x10^3/uL (0.0-0.7) Basophils # (Auto) 0.1 x10^3/uL (0.0-0.2) Sodium Level 138 mmol/L (136-145) Potassium Level 3.7 mmol/L (3.5-5.1) Chloride Level 105 mmol/L (98-107) Carbon Dioxide Level 27 mmol/L (21-32) Anion Gap 6 (6-14) Blood Urea Nitrogen 10 mg/dL (7-20) Creatinine 0.8 mg/dL (0.6-1.0) Estimated GFR (Cockcroft-Gault) 88.8 BUN/Creatinine Ratio 13 (6-20) Glucose Level 92 mg/dL (70-99) Calcium Level 8.6 mg/dL (8.5-10.1) Total Bilirubin 0.3 mg/dL (0.2-1.0) Aspartate Amino Transferase (AST) 19 U/L (15-37) Alanine Aminotransferase (ALT) 23 U/L (14-59) Alkaline Phosphatase 102 U/L (46-116) Troponin I Quantitative < 0.017 ng/mL (0.000-0.055) < 0.017 ng/mL (0.000-0.055) < 0.017 ng/mL (0.000-0.055) Total Protein 7.4 g/dL (6.4-8.2) Albumin 3.6 g/dL (3.4-5.0) Albumin/Globulin Ratio 0.9 (1.0-1.7) L Lipase 85 U/L (73-393) Glucose (Fingerstick) 101 mg/dL (70-99) H Laboratory Tests 01/19/20 22:30 Laboratory Tests 01/19/20 22:30 ECHOCARDIOGRAM ECHOCARDIOGRAM <Conclusion> The left ventricular systolic function is normal and the ejection fraction is within normal range. The Ejection Fraction is 65-70%. There is normal LV segmental wall motion. DATE: 05/31/17 0910 HEART CATH HEART CATH Findings. Hemodynamics. LV pressure 158/26, aortic root pressure 154/92. Coronaries. Left main. The left main was a normal-size vessel with no lesions. Left anterior descending. The LAD was a moderate size vessel. It had a proximal 15% lesion, a mid 10-15% lesion and distal small vessel disease in the first diagonal branch. Left circumflex. The left circumflex was a dominant vessel. It had a mid 20% lesion. Right coronary artery. The right coronary was a moderate size nondominant vessel. It had a mid to distal 50-60% lesion. IFR measurement of this lesion was normal. Left ventriculogram. The left ventricle had normal LV systolic function with ejection fraction of greater than 60%. <Conclusion> Moderate single vessel coronary artery disease. Single-vessel small vessel distal disease. Normal left ventricular systolic function. DATE: 05/30/17 1327 CARDIAC CATHETERIZATION REPORT FINAL IMPRESSION: Nonobstructive coronary artery disease as outlined above. Normal left ventricular end-diastolic pressure without any significant aortic stenosis. Medical therapy recommended for coronary artery disease. ASSESSMENT/PLAN ASSESSMENT/PLAN 1. Neck pain, h/o RA 2. CAD: trop series nml- AMI ruled out. EKG SR without acute changes, clinically stable. Cath 06/22 with nonobstructive disease 3. HTN: controlled 4. HLP; statin 5. GERD 6. Tobaccoism 7. Morbid obesity; encouraged weight loss Recommendations Continue metoprolol. Continue with secondary prevention measures Smoking cessation. Consider outpatient ischemic evaluation F/u with cardiology BRAXTON ZAMARRIPA MD 01/20/20 1840: CARDIAC CONSULT ASSESSMENT/PLAN ASSESSMENT/PLAN Patient seen and evaluated. History of coronary artery disease. Catheterization in June 2017 with nonobstructive disease. No acute ischemic changes. No elevation in troponin. We will continue medical treatment. Continue beta-celestine. Patient is followed by . Hypertension. Controlled on present treatments. Hyperlipidemia. Statin treatment. Tobacco abuse. Counseling as above. Morbid obesity. Thank you for allowing us to participate in the care of your patient. CALVIN ROBLES APRN Jan 20, 2020 11:31 BRAXTON ZAMARRIPA MD Jan 20, 2020 18:40
[2020-01-20 12:07] VITALS: BP 138/72
--- NOTE | 2020-01-20 13:00 | NUR ---
Discharge Note: Patient was discharged home with self care. Patients IV was discontinued without any complications per RN. Patient stated she needed to leave that she would call Dr. Sahu's office and schedule it outpatient. Patient was given discharge summary/instructions, follow-ups, and educational material. Patient did not have any further questions or concerns. Patient was taken down to the main entrance via wheelchair with all personal belongings, accompanied by ASHA Jarquin, where her ride was here to take her home.
[2020-01-20] MEDS ORDERED: amLODIPine BESYLATE 5 MG TABLET PO SCH (21:00)
[2020-01-20] MEDS ORDERED: PANTOPRAZOLE 40 MG TABLET.DR. PO SCH (21:00)
[2020-01-20] MEDS ORDERED: ATORVASTATIN CALCIUM 40 MG TABLET. PO SCH (21:00)
[2020-01-21] MEDS ORDERED: CLOPIDOGREL BISULFATE 75 MG TABLET PO SCH (08:00)
== END 2020-01-20 13:00 | disposition home or self-care (01) ==
LOC: ER 21:43 → ED HOLD 23:59 → 5 NORTH 01-20 01:34
PROVIDERS: ADMIT Internal Medicine; ATTEND Internal Medicine
DX: R07.89 Other chest pain (principal); M54.2 Cervicalgia; I25.10 Atherosclerotic heart disease of native coronary artery without angina pectoris; I10 Essential (primary) hypertension; I25.2 Old myocardial infarction; K31.84 Gastroparesis; E66.01 Morbid (severe) obesity due to excess calories; E78.5 Hyperlipidemia, unspecified; M06.9 Rheumatoid arthritis, unspecified; F17.210 Nicotine dependence, cigarettes, uncomplicated; K21.9 Gastro-esophageal reflux disease without esophagitis; Z90.49 Acquired absence of other specified parts of digestive tract; Z95.5 Presence of coronary angioplasty implant and graft; Z79.02 Long term (current) use of antithrombotics/antiplatelets; Z23 Encounter for immunization; Z68.41 Body mass index [BMI] 40.0-44.9, adult
CPT/HCPCS: 36415; 71045; 80053; 82962; 83690; 84484; 85025; 90471; 90686; 93005; 96374; 96376; 99285; G0378; J2270; G0008; G0379

== ENCOUNTER → 2020-02-07 | Outpatient (CLI) | payer MEDICARE, OTHER ==
[2020-01-20 12:07] VITALS: BP 138/72
[~2020-02-07] MED LIST changes: +OXYC20TA PO
--- NOTE | 2020-02-07 13:01 | PDOC1 ---
INITIAL PAIN CONSULT DATE OF SERVICE: DOS: DATE: 02/07/20 TIME: 12:53 CHIEF COMPLAINT: Chief Complaint: Low back and bilateral lower extremity pain Neck shoulder and bilateral upper extremity pain HISTORY OF PRESENT ILLNESS: 59-year-old female presents history of pain low back bilateral lower extremity as well as mid back upper back neck and shoulder pain for about 6 years or more with diagnosis of rheumatoid arthritis sees a diet attendant regularly. Patient reports that over the past year or so the pain is getting much worse in the low back bilateral lower extremities posterior gluteus posterior lateral thigh thighs anterior thighs knees as well as in the calves and both feet radiating worse with walking standing changing positions also reports pain in the mid upper back with pain in the shoulders and upper extremities bilaterally as well. Patient ports her low back and lower extremity pain is definitely worse wakes her from sleep multiple times during the night does not affect her bowel bladder control but does affect her ability to walk she has a cane with her today but also has a walker with a seat that she uses when she is going further distances. Patient reports has not had any formal physical therapies at this point or other treatments is doing some stretching on her own was trying to walk but the pain is limiting her from doing this and is keeping her from losing weight which she desires to do. Patient is tried tramadol which is not significantly decreasing the pain also [id number] Advil Motrin and Tylenol without sign ificant decrease in pain as well. Patient describes the pain in the back and neck is constant sharp stabbing throbbing tingling with numbness radiating pain in the bilateral lower extremities somewhat worse on the left than right but present bilaterally also in the upper extremities bilaterally cramping and aching in the base the neck shoulders as well as in the mid and low back. Patient rates her disability rating 0-10 10 being the worst, as 10 in all categories family home responsibilities recreation social activity occupation section behavior self-care and life support activities. PAST MEDICAL HISTORY: PMH: Shortness of breath, rheumatoid arthritis, dizziness, headaches, psoriasis, chest pain, cigarette smoking PREVIOUS SURGERIES: Past Surgical Hx: Cholecystectomy 2019 CURRENT MEDICATIONS: Current Meds: Active Scripts Medications Dose Route/Sig Max Daily Dose Days Date Category Oxycodone Hcl 20 Mg Tablet 10 Mg PO PRN Q6HRS PRN 02/07/20 Reported Ondansetron Odt (Ondansetron) 4 Mg Tab.rapdis 1 Tab PO Q12HR 03/13/18 Reported Flonase Allergy Relief (Fluticasone Propionate) 9.9 Ml Allison.susp 2 Sprays NS DAILY 03/13/18 Reported Aspirin 81 Mg Tab.chew 1 Tab PO DAILY 03/13/18 Reported Amlodipine Besylate 5 Mg Tablet 5 Mg PO HS 03/13/18 Reported Protonix Packet (Pantoprazole Sodium) 40 Mg Granpkt.dr 40 Mg PO HS 30 08/01/17 Rx Nitrostat (Nitroglycerin) 0.4 Mg Tab.subl 0.4 Mg SL PRN Q5MIN PRN 30 06/01/17 Rx Clopidogrel (Clopidogrel Bisulfate) 75 Mg Tablet 75 Mg PO DAILYWBKFT 30 06/01/17 Rx Atorvastatin Calcium 40 Mg Tablet 40 Mg PO QHS 30 06/01/17 Rx Metoprolol Tartrate 50 Mg Tablet 100 Mg PO BID 09/25/13 Reported ALLERGIES; Allergies: Coded Allergies: No Known Drug Allergies (Unverified , 07/29/17) FAMILY HISTORY: Family Hx: Multiple types of cancers SOCIAL HISTORY: Social Hx: Patient does not mari alcohol does smoke 2 to 4 cigarettes daily and has for many years does not use any illegal illicit recreational drugs is single lives locally in [facility] has grandchildren that she likes to take care of and is currently on disability secondary to current pain situation REVIEW OF SYSTEMS: ROS: Positive for those items mentioned in history of present illness, all systems are reviewed, otherwise negative, is complete full and well-documented on patient's chart PHYSICAL EXAM: VS: Blood pressure is 162/110 pulse 79 respirations 18 temperature 98.6 F height is 5 feet 11 inches weight is 315 pounds PE: PHYSICAL EXAMINATION: GENERAL: The patient is awake, alert, oriented, appropriate, very pleasant demeanor HEENT: Shows normocephalic, atraumatic. Extraocular movements are intact and symmetrical. Oral cavity: Mucous membranes moist and pink. Dentition is intact. NECK: Shows anterior throat supple without palpable lymphadenopathy noted. Swallow reflex symmetrical. CHEST: Shows normal on inspection. Breath sounds are clear bilaterally, distant but no rales rhonchi or wheezes auscultated. HEART: Shows S1, S2 clear. No murmurs auscultated. ABDOMEN: Soft, nontender, nondistended, obese. No palpable organomegaly is noted. No rebound or guarding demonstrated. BACK: Shows spine grossly in the midline. Normal-appearing cervical lordotic curvature. Cervical spine shows good rotation motion both laterally greater than 45 degrees closer to 90 degrees well is full extension full forward flexion without significant increase in difficulty, there is slightly increased thoracic kyphosis, some minor flattening of the lumbar lordotic curvature. Lumbar paraspinous muscles show symmetrical on inspection, on palpation shows some moderate tenderness diffusely throughout the upper, middle and lower distribution of the paraspinous muscles bilaterally and also into the lower thoracic paraspinous musculature, firm and tender, but without specific trigger points, without radiation of pain. The patient has good rotational motion of the lumbar spine, both laterally as well as extension and flexion without si gnificant difficulty. No tenderness over the spinous processes, sacrum or sacroiliac regions. EXTREMITIES: Lower extremities show deep tendon reflexes 1+ in the patellar and tendo calcaneus tendons. Motor exam is 4 on a scale of 5 with right dorsiflexion, extension, quadriceps and hamstring flexion and 4/5 on the left. Peripheral pulses are 1+ posterior tibial. No peripheral edema is noted bilaterally. Lower extremities are warm and dry to touch, equal in color and appearance. Straight leg raise noted to be positive on the right about 45 degrees, left side is positive at 45 as well both decreased with knee flexion. Gaenslen's and Andre's maneuvers are negative bilaterally. Patient's upper extremities show deep tendon reflexes 2+ in the bicep and triceps tendons, motor exam is approximately 4 to scale 5 with right entertainment agent strength and 5 out of 5 on the left bicep and triceps are 5 out of 5 and equal bilaterally shoulder shrug is strong and intact without loss of strength bilaterally but with moderate pain in the base the neck and shoulders right equal to left. The patient is able to stand, has difficulty trying to stand on her toes is walking with a slight shuffling gait does appear to favor the right lower extremity and has a cane with her in her right hand. SKIN: Shows warm and dry, good turgor. No edema. No sores, rashes or bruising throughout. IMPRESSION: Impression: 59-year-old female with 6-year plus history low back pain mid back upper back pain with radicular symptoms in the lower extremities bilaterally. MRI scan lumbar spine showing multilevel lumbar spondylosis with advanced lower lumbar facet arthropathy L3-4 and L4-5 neuroforaminal narrowing History of rheumatoid arthritis Obesity Cigarette smoking in the meantime we will order physical therapy for stretching strengthening exercises as well as mobility postural exercises. Plan: Options were discussed with the patient including conservative medical management physical therapies interventional techniques and she like to pursue dimensional techniques as well as physical therapy we discussed a lumbar epidural steroid injection using description as well as anatomical models described procedure. We will wait for clearance from patient's primary care physician who is prescribing her Plavix and if deemed safe to be off this for 7 days we will have her hold this and return for lumbar epidural steroid injection at that time .In the meantime we will order physical therapy for stretching strengthening exercises as well as mobility postural exercises. ILYA BREWSTER MD Feb 07, 2020 13:01
== END | disposition home or self-care (01) ==
LOC: PNCL 11:36
PROVIDERS: ATTEND Anesthesiology
DX: M47.896 Other spondylosis, lumbar region (principal); M54.2 Cervicalgia; M79.605 Pain in left leg; M79.604 Pain in right leg; M79.602 Pain in left arm; M79.601 Pain in right arm; I10 Essential (primary) hypertension; K21.9 Gastro-esophageal reflux disease without esophagitis; E66.01 Morbid (severe) obesity due to excess calories; Z68.41 Body mass index [BMI] 40.0-44.9, adult; Z79.82 Long term (current) use of aspirin; Z79.899 Other long term (current) drug therapy; Z87.891 Personal history of nicotine dependence; Z90.49 Acquired absence of other specified parts of digestive tract
CPT/HCPCS: G0463

== ENCOUNTER 2020-03-10 22:52 | Emergency (ER) | payer MEDICARE, OTHER ==
[~2020-03-10] VITALS: Ht 180.3 cm; Wt 131.8 kg
[~2020-03-10 22:52] MED LIST changes: +AMLO-186 PO; -AMLO5TAB10 PO
[2020-03-10] MEDS ORDERED: PRED20TA PO (23:32)
[2020-03-10] MEDS ORDERED: ACYC800T PO (23:32)
[2020-03-10] MEDS ORDERED: HYDR-3164 PO (23:32)
--- NOTE | 2020-03-10 23:32 | PHYS DOC ---
Past Medical History Past Medical History: Arthritis, GERD, Hypertension, ID, Other Additional Past Medical Histor: RA Past Surgical History: Angioplasty, Cholecystectomy, Other Additional Past Surgical Histo: cyst removed from back, Cardiac stent x2 Smoking Status: Light Tobacco Smoker Alcohol Use: Occasionally Drug Use: None General Adult EDM: Chief Complaint: SKIN RASH/ABSCESS HPI: HPI: Patient is a 59 year old female who presents with a 1 day history of rash on the right side of her neck and chest. Patient describes a burning in intensity pain that radiates down the right arm. Patient is also had a low-grade fever. Patient denies any other URI symptoms such as cough shortness of breath runny nose or sore throat. Patient had a history of chickenpox as a child. Review of Systems: Review of Systems: Constitutional: Has a low-grade fever Eyes: Denies change in visual acuity. [] HENT: Denies nasal congestion or sore throat. [] Respiratory: Denies cough or shortness of breath. [] Cardiovascular: Denies chest pain or edema. [] GI: Denies abdominal pain, nausea, vomiting, bloody stools or diarrhea. [] : Denies dysuria. [] Musculoskeletal: Denies back pain or joint pain. [] Integument: Complains of rash to right-sided back and chest Neurologic: Denies headache, focal weakness or sensory changes. [] Endocrine: Denies polyuria or polydipsia. [] Lymphatic: Denies swollen glands. [] Psychiatric: Denies depression or anxiety. [] Heart Score: Risk Factors: Risk Factors: DM, Current or recent (<one month) smoker, HTN, HLP, family history of CAD, obesity. Risk Scores: Score 0 - 3: 2.5% MACE over next 6 weeks - Discharge Home Score 4 - 6: 20.3% MACE over next 6 weeks - Admit for Clinical Observation Score 7 - 10: 72.7% MACE over next 6 weeks - Early Invasive Strategies Allergies: Allergies: Allergies Coded Allergies Type Severity Reaction Last Updated Verified No Known Drug Allergies 07/29/17 No Physical Exam: PE: Constitutional: Well developed, well nourished, no acute distress, non-toxic appearance. [] HENT: Normocephalic, atraumatic, bilateral external ears normal, mucous membranes moist nose normal. [] No tympanic membrane lesions Eyes: PERRLA, EOMI, conjunctiva normal, no discharge. [] Neck: Vesicular rash on right side of neck Cardiovascular:Heart rate regular rhythm, peripheral pulses intact cap refill is brisk Lungs & Thorax: Bilateral breath sounds clear, no respiratory distress Abdomen: Bowel sounds normal, soft, no tenderness, no masses, no pulsatile masses. [] Skin: Vesicular rash on the right side of neck chest and right shoulder area. Talty base to the rash Back: No tenderness, no CVA tenderness. [] Extremities: No tenderness, no cyanosis, no clubbing, ROM intact, no edema. [] Neurologic: Alert and oriented X 3, normal motor function, normal sensory function, no focal deficits noted. [] Psychologic: Affect normal, judgement normal, mood normal. [] Current Patient Data: Vital Signs: Vital Signs Date Time Temp Pulse Resp B/P (MAP) Pulse Ox O2 Delivery O2 Flow Rate FiO2 03/10/20 23:04 100.5 87 21 184/86 (118) 98 Room Air 100.5 EKG: EKG: [] Radiology/Procedures: Radiology/Procedures: [] Course & Med Decision Making: Course & Med Decision Making Pertinent Labs and Imaging studies reviewed. (See chart for details) [] 59-year-old female presents with rash and low-grade fevers consistent with shingles. Patient is not systemically toxic although she has a low-grade temperature. Patient be treated with steroids and antivirals and pain medicine. Return precautions given. Georginaon Disclaimer: Adela Disclaimer: This electronic medical record was generated, in whole or in part, using a voice recognition dictation system. Departure Departure Impression: Primary Impression: Shingles Disposition: 01 DC HOME SELF CARE/HOMELESS Condition: STABLE Referrals: MIGUEL GUZMAN MD (PCP) 2-3 days Patient Instructions: Shingles Additional Instructions: EMERGENCY DEPARTMENT GENERAL DISCHARGE INSTRUCTIONS THANK YOU for coming to [facility] Emergency Department (ED) today and trusting us with your care. We trust that you had a positive experience in our Emergency Department. If you wish to speak to the department Management you can contact the twisting department end finder at . YOUR FOLLOW UP INSTRUCTIONS ARE FOLLOWS: Do you have a private doctor? If you do not have a private doctor, please ask for a resource list of physicians or clinics that may be able to assist you with follow up care. The Emergency Physician has interpreted your x-rays. The X-ray specialist will also review them. If there is a change in the findings you will be notified in 48 hours when at all possible. A lab test or lab culture may have been done, your results will be reviewed and you will be notified if you need a change in treatment. ADDITIONAL INSTRUCTIONS AND INFORMATION Your care today has been supervised by a physician who is specially trained in emergency care. Many problems require more than one evaluation for a complete diagnosis and treatment. We recommend that you schedule your follow up appointment as recommended to ensure complete treatment of your illness or injury. If you are unable to obtain follow up care and continue to have a problem, or if your condition worsens we recommend that you return to the ED. We are not able to safely determine your condition over the phone nor are we able to give sound medical advice over the phone. For these safety reasons, if you call for medical advice we will ask you to come to the ED for further evaluation If you have any questions regarding these discharge instructions please call the ED at . SAFETY INFORMATION In the interest of safety, wellness, and injury prevention; we encourage you to wear your seatbelt, if you smoke; quit smoking, and we encourage your family to use protective helmet for bicycling and other sporting events that present an increased risk for head injury. IF YOUR SYMPTOMS WORSEN OR NEW SYMPTOMS DEVELOP, OR YOU HAVE CONCERNS ABOUT YOUR CONDITION; OR IF YOUR CONDITION WORSENS WHILE YOU ARE WAITING FOR YOUR FOLLOW UP APPOINTMENT; EITHER CONTACT YOUR PRIMARY CARE DOCTOR, THE PHYSICIAN WHOSE NAME AND NUMBER YOU WERE GIVEN, OR RETURN TO THE ED IMMEDIATELY. Scripts Hydrocodone/Apap 5-325 (NORCO 5-325 TABLET) 1 Each Tablet 1-2 EACH PO PRN Q6HRS PRN for PAIN, #15 as needed for pain Prov: IRMA DE OLIVEIRA MD 03/10/20 Prednisone (PREDNISONE) 20 Mg Tablet 3 TAB PO DAILY for 10 Days, #30 TAB Prov: IRMA DE OLIVEIRA MD 03/10/20 Acyclovir (ACYCLOVIR) 800 Mg Tablet 1 TAB PO 5XDAY, #50 TAB Prov: IRMA DE OLIVEIRA MD 03/10/20 IRMA DE OLIVEIRA MD Mar 10, 2020 23:32
[2020-03-10 23:45] VITALS: BP 158/88
[2020-03-10] MEDS ORDERED: HYDROcodone/APAP 7.5/325MG 1 TAB TABLET PO ONE (23:45)
[2020-03-10] MEDS ORDERED: ONDANSETRON ODT 4 MG TAB.RAPDIS. PO ONE (23:45)
== END 2020-03-10 23:53 | disposition home or self-care (01) ==
LOC: ER 22:52
DX: B02.9 Zoster without complications (principal); K21.9 Gastro-esophageal reflux disease without esophagitis; I10 Essential (primary) hypertension; I25.2 Old myocardial infarction; Z72.0 Tobacco use; Z95.5 Presence of coronary angioplasty implant and graft
CPT/HCPCS: 99283

== ENCOUNTER 2020-06-12 21:46 | Emergency (ER) | payer MEDICARE, OTHER ==
[~2020-06-12] VITALS: Ht 180.3 cm; Wt 145.0 kg
[~2020-06-12 21:46] MED LIST changes: +ACYC800T PO; -CLIN150C14 PO; +CLIN150C15 PO; -LISI-334 PO; +LISI20TA18 PO; +PRED20TA PO
[2020-06-12] MEDS ORDERED: NITROGLYCERIN SUBLINGUAL 0.4 MG BOTTLE OF 25. SL PRN (22:30)
[2020-06-12] MEDS ORDERED: IV RINGERS,LACTATED 1000ML 1,000 ML IV SCH (22:30)
[2020-06-12] MEDS ORDERED: FAMOTIDINE 20 MG/2 ML VIAL IVP ONE (22:30)
[2020-06-12] MEDS ORDERED: METOCLOPRAMIDE HCL 10 MG/2 ML VIAL. IVP ONE (22:30)
[2020-06-12 23:00] LABS: BASO % 0 % (0-3); EOS # 0.1 x10^3/uL (0.0-0.7); EOS % 1 % (0-3); HEMATOCRIT 41.4 % (36.0-47.0); HEMOGLOBIN 13.7 g/dL (12.0-15.5); LYMPH # 2.6 x10^3/uL (1.0-4.8); LYMPH % 31 % (24-48); MEAN CORPUSCULAR HEMOGLOBIN 30 pg (25-35); MEAN CORPUSCULAR HGB CONC 33 g/dL (31-37); MEAN CORPUSCULAR VOLUME 91 fL (79-100); MONO # 0.4 x10^3/uL (0.0-1.1); MONO % 5 % (0-9); NEUT # 5.3 x10^3/uL (1.8-7.7); NEUT % 63 % (31-73); PLATELET COUNT 249 x10^3/uL (140-400); RED BLOOD COUNT 4.55 x10^6/uL (3.50-5.40); RED CELL DISTRIBUTION WIDTH 14.1 % (11.5-14.5); WHITE BLOOD COUNT 8.4 x10^3/uL (4.0-11.0)
[2020-06-12 23:10] LABS: CALCIUM 9.4 mg/dL (8.5-10.1); CREATININE 0.9 mg/dL (0.6-1.0); GFR 77.3; POTASSIUM 3.4 mmol/L (3.5-5.1)
[2020-06-12 23:16] LABS: ALBUMIN 3.8 g/dL (3.4-5.0); ALBUMIN/GLOBULIN RATIO 0.9 (1.0-1.7); TOTAL BILIRUBIN 0.3 mg/dL (0.2-1.0); TOTAL PROTEIN 8.2 g/dL (6.4-8.2)
--- NOTE | 2020-06-12 23:19 | PHYS DOC ---
Past Medical History Past Medical History: Arthritis, GERD, Hypertension, MS, Other Additional Past Medical Histor: RA Past Surgical History: Angioplasty, Cholecystectomy, Other Additional Past Surgical Histo: cyst removed from back, Cardiac stent x2 Smoking Status: Light Tobacco Smoker Alcohol Use: Occasionally Drug Use: None General Adult EDM: Chief Complaint: ABDOMINAL PAIN HPI: HPI: 60 yo F past medical history of rheumatoid arthritis, presents to the ED with complaints of " started in my stomach," described as sharp, constant nonradiating pain that is worse when she moves side to side started around 10 AM this morning when she was cooking. Try to lie down take a nap but pain did not subside. Around 3:57 PM reports heaviness described as a pressure in her both legs and low back. Later had left arm pain. Reports for the past few days she has had nausea and the sensation she is going to pass out. Initially thought her pain was due to gallstones but has had a cholecystectomy. Last drink of alcohol was May 11. Denies any cocaine use, marijuana, methamphetamines, IV drug use or illicit drugs. Not taken her evening blood pressure medicines. Reports normal blood pressures 150/90. EMR was reviewed and patient had catheterization in 2018 that showed low-grade blockages but no required stenting. Patient reports after this admission she was admitting to [facility] with an elevated troponin, cath with no stenting. 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 Has been taking Zofran in the past 2 days for her nausea. Review of Systems: Review of Systems: Constitutional: Denies fever or chills. [] Eyes: Denies loss or eye drainage HENT: Denies nasal congestion or sore throat. [] Respiratory: Denies cough or hemoptysis Cardiovascular: Denies syncope or unilateral lower extremity edema GI: Denies vomiting, bloody stools or diarrhea. [] : Denies dysuria or hematuria Musculoskeletal: Denies joint swelling or deformity Integument: Denies rash or diaphoresis Neurologic: Denies headache, nuchal rigidity, focal weakness or sensory changes. [] Endocrine: Denies polyuria or polydipsia. [] Lymphatic: Denies swollen glands. [] Psychiatric: Denies depression or anxiety. [] Heart Score: HEART Score for Chest Pain: HEART Score for Chest Pain Response (Comments) Value History Slighlty/Non-Suspicious 0 ECG Normal 0 Age >45 - < 65 1 Risk Factors >3 Risk Factors or Hx CAD 2 Troponin < Normal Limit 0 Total 3 Risk Factors: Risk Factors: DM, Current or recent (<one month) smoker, HTN, HLP, family history of CAD, obesity. Risk Scores: Score 0 - 3: 2.5% MACE over next 6 weeks - Discharge Home Score 4 - 6: 20.3% MACE over next 6 weeks - Admit for Clinical Observation Score 7 - 10: 72.7% MACE over next 6 weeks - Early Invasive Strategies Current Medications: Current Medications Medications (Trade) Dose Ordered Sig/Haylee Start Time Stop Time Status Last Admin Dose Admin Famotidine (Pepcid Vial) 20 mg 1X ONCE 06/12/20 22:30 06/12/20 22:33 DC 06/12/20 23:00 20 MG Metoclopramide HCl (Reglan Vial) 10 mg 1X ONCE 06/12/20 22:30 06/12/20 22:33 DC 06/12/20 23:00 10 MG Nitroglycerin (Nitrostat) 0.4 mg PRN Q5MIN PRN 06/12/20 22:30 Ringer's Solution 1,000 ml @ 1,000 mls/hr Q1H 06/12/20 22:30 06/12/20 23:29 06/12/20 23:00 1,000 MLS/HR Allergies: Allergies: Allergies Coded Allergies Type Severity Reaction Last Updated Verified No Known Drug Allergies 07/29/17 No Physical Exam: PE: Constitutional: Well developed, well nourished, no acute distress/calm - pain threshold not c/w physical exam, non-toxic appearance, hypertensive on arrival, obese HENT: Normocephalic, atraumatic, Eyes: EOMI, conjunctiva normal, no discharge. Neck: Normal range of motion, supple, Cardiovascular: S1/2 present, regular rhythm Lungs & Thorax: Speaking in full sentences, bilateral equal chest rise, no tachypnea or increased work of breathing Abdomen: soft, no tenderness, no Puente sign, no McBurney's point tenderness, no Rovsing sign, no rigidity or guarding Skin: Warm, dry, no erythema, no rash. [] Back: No midline tenderness, no CVA tenderness. [] Extremities: No tenderness, no cyanosis, no lower extremity edema Neurologic: Alert and oriented X 3, normal motor function, normal sensory function, no focal deficits noted. [] Psychologic: Affect normal, judgement normal, mood normal. [] Current Patient Data: Labs: Laboratory Tests Test 06/12/20 22:50 White Blood Count 8.4 x10^3/uL (4.0-11.0) Red Blood Count 4.55 x10^6/uL (3.50-5.40) Hemoglobin 13.7 g/dL (12.0-15.5) Hematocrit 41.4 % (36.0-47.0) Mean Corpuscular Volume 91 fL (79-100) Mean Corpuscular Hemoglobin 30 pg (25-35) Mean Corpuscular Hemoglobin Concent 33 g/dL (31-37) Red Cell Distribution Width 14.1 % (11.5-14.5) Platelet Count 249 x10^3/uL (140-400) Neutrophils (%) (Auto) 63 % (31-73) Lymphocytes (%) (Auto) 31 % (24-48) Monocytes (%) (Auto) 5 % (0-9) Eosinophils (%) (Auto) 1 % (0-3) Basophils (%) (Auto) 0 % (0-3) Neutrophils # (Auto) 5.3 x10^3/uL (1.8-7.7) Lymphocytes # (Auto) 2.6 x10^3/uL (1.0-4.8) Monocytes # (Auto) 0.4 x10^3/uL (0.0-1.1) Eosinophils # (Auto) 0.1 x10^3/uL (0.0-0.7) Basophils # (Auto) 0.0 x10^3/uL (0.0-0.2) Laboratory Tests 06/12/20 22:50 Vital Signs: Vital Signs Date Time Temp Pulse Resp B/P (MAP) Pulse Ox O2 Delivery O2 Flow Rate FiO2 06/12/20 21:55 98.3 77 12 200/11 (73) 100 Room Air 98.3 EKG: EKG: sinus rhythm 70 bpm, left axis deviation, normal intervals, no T wave inversion s, no ST elevations or ST depressions, no Q waves Radiology/Procedures: Radiology/Procedures: []IMAGING REPORT Signed PATIENT: DEAN TREVIZO TACCOUNT: [id number] : 1960 LOCATION: ER AGE: 60 SEX: F EXAM STATUS: REG ER ORD. PHYSICIAN: EHSAN FAY DO REASON: epigastric pain, heavy legs, near syncope, HTN r/o dissection PROCEDURE: CT ANGIOGRAPHY ABD AND PELVIS PQRS Compliance Statement: One or more of the following individualized dose reduction techniques were utilized for this examination: 1. Automated exposure control 2. Adjustment of the mA and/or kV according to patient size 3. Use of iterative reconstruction technique CTA ABDOMEN AND PELVIS WITHOUT IV CONTRAST 06/12/2020 11:12 PM Indication: Epigastric pain, near syncope. Hypertension COMPARISON: None available. TECHNIQUE: Multiple axial CT angiographic images of the abdomen and pelvis were obtained before and after the intravenous administration of nonionic contrast. Coronal and sagittal reformats are provided. Maximum intensity projection images are provided. FINDINGS: Lung bases are clear. Heart size is within normal limits. Arterial phase imaging limits evaluation of the hepatic parenchyma. No arterially hyperenhancing lesions are identified within the liver. Spleen, adrenal glands and pancreas are normal in appearance. Gallbladder surgically absent. The kidneys enhance symmetrically. There is no suspicious renal mass. There is no hydronephrosis. There are no suspected calculi within the kidneys, ureters or urinary bladder. Small and large bowel are normal in caliber. There is no evidence for bowel obstruction. There are no pericolonic inflammatory changes. A normal, nondilated appendix is visualized without adjacent inflammatory changes. There is a uterine fibroid along the anterior inferior uterine body measuring 2.5 x 2.7 cm. No suspicious adnexal mass. Urinary bladder is within normal limits given degree of distention. No suspicious osseous abnormality is identified. There is no intramural hematoma. Minor calcified atheromatous plaque involving the abdominal aorta. Abdominal aorta measures 2.2 x 2.2 cm at the aortic hiatus. Celiac axis and superior mesenteric artery are widely patent. Single bilateral renal arteries are widely patent. Infrarenal abdominal aorta demonstrates mild calcified plaque measuring up to 1.8 x 1.5 cm. No abdominal aortic aneurysm. Common iliac arteries, external iliac arteries and internal iliac arteries widely patent. Profunda and superficial femoral arteries are patent proximally. Common femoral artery is normal in course and caliber. IMPRESSION: No evidence for aortic dissection or aneurysm. There is a 2.4 x 2.7 cm uterine fibroid along the lower anterior uterine body. Electronically signed by: Quita Martinez MD (06/12/2020 11:55 PM) [facility] DICTATED and SIGNED BY: QUITA MARTINEZ MD DATE: 06/12/20 [id number] 0 Course & Med Decision Making: Course & Med Decision Making Pertinent Labs and Imaging studies reviewed. (See chart for details) On reevaluation patient also reports she has tingling in her fingers and intermittent blurry vision episodes Pt with multiple sxs that do not seem to correlate to one specific diagnosis. Blood pressure improved in ED with no signs of end organ damage, normal renal function-patient with no chest pressure, heaviness or tightness, tearing or ripping pain (asymptomatic htn). 2 troponins negative. CTA of the chest abdomen pelvis showing no aortic aneurysm or dissection. Patient continues to ask where her pain is coming from, why I haven't ordered more tests. Reports she has tylenol, motrin 800mg ("600 doesn't work for me") and muscle relaxers that don't provide relief. States she is already on pepcid. Pt was educated that her diagnosis may require further specialty evaluations, but that there is no apparent life or limb threatening disease. Will discharge home with strict ED return precautions were given for neuro deficits, severe pain, chest pain, increased work of breathing, dyspnea or syncope. Encouraged urgent outpatient follow-up with PMD and GI. Life- threatening processes were considered but are low suspicion at this time, given history, physical exam and ED workup. Pt was educated on all prescription medications and adverse effects. All patient's questions were answered and pt was stable at time of discharge. Life/limb-threatening differential includes but is not limited to, aortic dissection, aortic aneurysm, acute coronary syndrome, surgical abdomen (appendicitis, cholecystitis, ischemic bowel, strangulated hernia, etc), bowel obstruction or volvulus, bladder outlet obstruction, gastrointestinal bleeding, inflammatory bowel disease, peptic ulcer disease, ACS/CAD, sepsis, diverticular disease, ureterolithiasis, nephrolithiasis, vaginal hemorrhage, or genitourinary infection. I spoken with the patient and her caregivers. I explained the patient's condition, diagnoses and treatment plan based on the information available to me at this time. I have answered the patient and her caregiver's questions and addressed any concerns. The patient and her caregivers have a good understanding of patient's diagnosis, condition and treatment plan as can be expected at this point. Vital signs have been stable. Patient's condition is stable and appropriate for discharge from the emergency department. Patient will pursue further outpatient evaluation with primary care physician or other designated or consulting physician as outlined in the discharge instructions. The patient and/or caregivers are agreeable to this plan of care and follow-up instructions have been explained in detail. The patient and/or caregivers have received these instructions in written form and have expressed an understanding of the discharge instructions. The patient and/or caregivers are aware that any significant change of condition or worsening of symptoms should prompt immediate return to this or the closest emergency department or call to 185. Adela Disclaimer: Adela Disclaimer: This electronic medical record was generated, in whole or in part, using a voice recognition dictation system. Departure Departure Impression: Primary Impression: Epigastric abdominal pain Additional Impression: Uncontrolled hypertension Disposition: 01 DC HOME SELF CARE/HOMELESS Condition: STABLE Referrals: MIGUEL GUZMAN MD (PCP) within 3-5 days for re-evaluation Patient Instructions: Abdominal Pain, Hypertension Additional Instructions: FOLLOW UP WITH GASTROENTEROLOGY: Gastroenterology [facility] Address: [address] [place] [address] EMERGENCY DEPARTMENT GENERAL DISCHARGE INSTRUCTIONS Thank you for coming to [facility] (ED) today and trusting us with you care. We trust that you had a positive experience in our Emergency Department. If you wish to speak to the department management, you may call the Director at [phone]. YOUR FOLLOW UP INSTRUCTIONS ARE FOLLOWS: 1. Do you have a private Doctor? If you do not have a private doctor, please ask for a resource list of physicians or clinics that may be able to assist you with follow up care. 2. The Emergency Physicain has interpreted your x-rays. The X-Ray specialist will also review them. If there is a change in the findings, you will be notified in 48 hours when at all possible. 3. A lab test or culture has been done, your results will be reviewed and you will be notified if you need a change in treatment. ADDITIONAL INSTRUCTIONS AND INFORMATION: 1. Your care today has been supervised by a physician who is specially trained in emergency care. Many problems require more than one evaluation for a complete diagnosis and treatment. We recommend that you schedule your follow up appointment as recommended to ensure complete treatment of you illness or injury. If you are unable to obtain follow up care and continue to have a problem, or if your condition worsens, we recommend that you return to the ED. 2. We are not able to safely determine your condition over the phone nor are we able to give sound medical advice over the phone. For these safety reasons, if you call for medical advice we will ask you to come to the ED for further evaluation. 3. If you have any questions regarding these discharge instructions please call the ED at [phone]. SAFETY INFORMATION: In the interest of safety, wellness, and injury prevention; we encourage you to wear your sealbelt, if you smoke; quite smoking, and we encourage family to use a protective helmet for bicycling and other sporting events that present an increased risk for head injury. IF YOUR SYMPTOMS WORSEN OR NEW SYMPTOMS DEVELOP, OR YOU HAVE CONCERNS ABOUT YOUR CONDITION; OR IF YOUR CONDITION WORSENS WHILE YOU ARE WAITING FOR YOUR FOLLOW UP APPOINTMENT; EITHER CONTACT YOUR PRIMARY CARE DOCTOR, THE PHYSICIAN WHOSE NAME AND NUMBER YOU WERE GIVEN, OR RETURN TO THE ED IMMEDIATELY. Scripts Famotidine (PEPCID) 20 Mg Tablet 20 MG PO BID for 14 Days, #28 TAB Prov: EHSAN FAY DO 06/13/20 EHSAN FAY DO Jun 12, 2020 23:19
[2020-06-12] MEDS ORDERED: CONTRAST GIVEN. MC PRN (23:30)
[2020-06-12] MEDS ORDERED: IOHEXOL 350 MG/ML 100 ML VIAL. IV ONE (23:30)
--- NOTE | 2020-06-12 23:57 | RAD ---
PQRS Compliance Statement: One or more of the following individualized dose reduction techniques were utilized for this examinat ion: 1. Automated exposure control 2. Adjustment of the mA and/or kV according to patient size 3. Use of iterative reconstruction technique CTA ABDOMEN AND PELVIS WITHOUT IV CONTRAST 06/12/2020 11:12 PM Indication: Epigastric pain, near syncope. Hypertension COMPARISON: None available. TECHNIQUE: Multiple axial CT angiographic images of the abdomen and pelvis were obtained before and a fter the intravenous administration of nonionic contrast. Coronal and sagittal reformats are provided . Maximum intensity projection images are provided. FINDINGS: Lung bases are clear. Heart size is within normal limits. Arterial phase imaging limits evaluation of the hepatic parenchyma. No arterially hyperenhancing lesions are identified within the liver. Spleen , adrenal glands and pancreas are normal in appearance. Gallbladder surgically absent. The kidneys enhance symmetrically. There is no suspicious renal mass. There is no hydronephrosis. The re are no suspected calculi within the kidneys, ureters or urinary bladder. Small and large bowel are normal in caliber. There is no evidence for bowel obstruction. There are no pericolonic inflammatory changes. A normal, nondilated appendix is visualized without adjacent infla mmatory changes. There is a uterine fibroid along the anterior inferior uterine body measuring 2.5 x 2.7 cm. No suspic ious adnexal mass. Urinary bladder is within normal limits given degree of distention. No suspicious osseous abnormality is identified. There is no intramural hematoma. Minor calcified atheromatous plaque involving the abdominal aorta. A bdominal aorta measures 2.2 x 2.2 cm at the aortic hiatus. Celiac axis and superior mesenteric artery are widely patent. Single bilateral renal arteries are widely patent. Infrarenal abdominal aorta dem onstrates mild calcified plaque measuring up to 1.8 x 1.5 cm. No abdominal aortic aneurysm. Common il iac arteries, external iliac arteries and internal iliac arteries widely patent. Profunda and superfi cial femoral arteries are patent proximally. Common femoral artery is normal in course and caliber. IMPRESSION: No evidence for aortic dissection or aneurysm. There is a 2.4 x 2.7 cm uterine fibroid along the lower anterior uterine body. Electronically signed by: Madeleine Browne MD (06/12/2020 11:55 PM) [facility]
[2020-06-13] MEDS ORDERED: KETOROLAC 15 MG/ML VIAL. IVP ONE (01:15)
[2020-06-13 01:24] LABS: BILIRUBIN,URINE NEGATIVE (NEG); CLARITY,URINE CLEAR; COLOR,URINE YELLOW; NITRITE,URINE NEGATIVE (NEG); PROTEIN,URINE NEGATIVE (NEG-TRACE); UROBILINOGEN,URINE 0.2 mg/dL (0.2 mg/dL)
[2020-06-13 01:30] LABS: BARBITURATES NEG (NEG); BENZODIAZEPINES NEG (NEG); CANNABINOIDS NEG (NEG); COCAINE NEG (NEG); METHADONE NEG (NEG); OPIATES NEG (NEG); PHENCYCLIDINE NEG (NEG)
[2020-06-13 01:31] LABS: BACTERIA,URINE FEW /HPF (0-FEW); RBC,URINE OCC /HPF (0-2); WBC,URINE OCC /HPF (0-4)
[2020-06-13 01:32] LABS: AMPHETAMINE/METHAMPHETAMINE NEG (NEG)
[2020-06-13] MEDS ORDERED: FAMO-63 PO (02:13)
[2020-06-13 03:00] VITALS: BP 158/72
--- NOTE | 2020-06-13 04:46 | EKG ---
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
== END 2020-06-13 03:05 | disposition home or self-care (01) ==
LOC: ER 21:46
DX: R10.13 Epigastric pain (principal); R11.0 Nausea; R20.2 Paresthesia of skin; I10 Essential (primary) hypertension; M19.90 Unspecified osteoarthritis, unspecified site; K21.9 Gastro-esophageal reflux disease without esophagitis; I25.2 Old myocardial infarction; Z90.49 Acquired absence of other specified parts of digestive tract; Z90.89 Acquired absence of other organs; Z87.891 Personal history of nicotine dependence; Z98.890 Other specified postprocedural states; Z79.899 Other long term (current) drug therapy
CPT/HCPCS: 36415; 74174; 80053; 80307; 81001; 83690; 83880; 84484; 85025; 93005; 96361; 96374; 96375; 99285; J1885; J2765; J3490; J7120; Q9967

== ENCOUNTER 2020-07-23 13:09 | Observation (INO) | payer MEDICARE, OTHER ==
[~2020-07-23] VITALS: Ht 180.3 cm; Wt 136.2 kg
[~2020-07-23 13:09] MED LIST changes: +FAMO-63 PO
[2020-07-23] MEDS ORDERED: DEXAMETHASONE 4 MG TABLET PO ONE (14:15)
--- NOTE | 2020-07-23 14:46 | PHYS DOC ---
Past Medical History Past Medical History: Arthritis, GERD, Hypertension, ID, Other Additional Past Medical Histor: RA Past Surgical History: Angioplasty, Cholecystectomy, Other Additional Past Surgical Histo: cyst removed from back, Cardiac stent x2 Smoking Status: Light Tobacco Smoker Alcohol Use: Occasionally Drug Use: None General Adult EDM: Chief Complaint: Congestion HPI: HPI: Patient is a 60 year old female who presents with states Friday her grandchild had been sick with a upper respiratory infection and then Friday she started feeling achy, having nasal congestion, cough and chest tightness. She states she has been drinking tea and taking albuterol breathing treatments at home. She states that she feels like is getting better but is maybe more down into her chest. She does not have chest pain but she has chest tightness with some shortness of air. She tested positive for Covid last month. She states she was not put on any kind of antibiotics or medications for that. Patient denies fever, abdominal pain, nausea, vomiting, diarrhea, chest pain, headache, dizziness, numbness or tingling, focal weakness. She does have a history of smoker, RA, angioplasty, GERD, cholecystectomy, cardiac stents, ID, hypertension. Review of Systems: Review of Systems: Constitutional: Denies fever or chills. [] Eyes: Denies change in visual acuity. [] HENT: +nasal congestion or denies sore throat. [] Respiratory: +cough or +shortness of breath. [] Cardiovascular: Denies chest pain or edema. + Chest tightness [] GI: Denies abdominal pain, nausea, vomiting, bloody stools or diarrhea. [] : Denies dysuria. [] Musculoskeletal: Denies back pain or joint pain. + Generalized fatigue and body aches [] Integument: Denies rash. [] Neurologic: Denies headache, focal weakness or sensory changes. [] Endocrine: Denies polyuria or polydipsia. [] Lymphatic: Denies swollen glands. [] Psychiatric: Denies depression or anxiety. [] Heart Score: C/O Chest Pain: Yes HEART Score for Chest Pain: HEART Score for Chest Pain Response (Comments) Value History Slighlty/Non-Suspicious 0 ECG Nonspecific Repolarizatio 1 Age >45 - < 65 1 Risk Factors >3 Risk Factors or Hx CAD 2 Troponin < Normal Limit 0 Total 4 Risk Factors: Risk Factors: DM, Current or recent (<one month) smoker, HTN, HLP, family history of CAD, obesity. Risk Scores: Score 0 - 3: 2.5% MACE over next 6 weeks - Discharge Home Score 4 - 6: 20.3% MACE over next 6 weeks - Admit for Clinical Observation Score 7 - 10: 72.7% MACE over next 6 weeks - Early Invasive Strategies Current Medications: Current Medications Medications (Trade) Dose Ordered Sig/Haylee Start Time Stop Time Status Last Admin Dose Admin Dexamethasone (Decadron) 10 mg 1X ONCE 07/23/20 14:15 07/23/20 14:18 DC Allergies: Allergies: Allergies Coded Allergies Type Severity Reaction Last Updated Verified No Known Drug Allergies 07/29/17 No Physical Exam: PE: Constitutional: Well developed, well nourished, no acute distress, non-toxic appearance. [] HENT: Normocephalic, atraumatic, bilateral external ears normal, oropharynx moist, no oral exudates, nose normal. Nasal congestion [] Eyes: PERRLA, EOMI, conjunctiva normal, no discharge. [] Neck: Normal range of motion, no tenderness, supple, no stridor. [] Cardiovascular:Heart rate regular rhythm, no murmur [] Lungs & Thorax: Bilateral breath sounds clear to auscultation [] Abdomen: Bowel sounds normal, soft, no tenderness, no masses, no pulsatile masses. [] Skin: Warm, dry, no erythema, no rash. [] Back: No tenderness, no CVA tenderness. [] Extremities: No tenderness, no cyanosis, no clubbing, ROM intact, no edema. [] Neurologic: Alert and oriented X 3, normal motor function, normal sensory function, no focal deficits noted. [] Psychologic: Affect normal, judgement normal, mood normal. [] EKG: EK and read by dr brumfield as sinus rhythm and no stemi Radiology/Procedures: Radiology/Procedures: [] Impression: [facility] [address] [place] [address] IMAGING REPORT Signed PATIENT: DEAN TREVIZO TACCOUNT: [id number] : 1960 LOCATION: ER AGE: 60 SEX: F EXAM STATUS: REG ER ORD. PHYSICIAN: CATHY SHIN APRN REASON: CHEST CONGESTION, COUGH PROCEDURE: PORTABLE CHEST 1V XR CHEST 1V History: Reason: CHEST CONGESTION, COUGH / Spl. Instructions: / History: Comparison: January 19, 2020 Findings: No consolidation or pleural effusion. Normal heart size. No pneumothorax. Impression: 1. No acute cardiopulmonary process. Electronically signed by: Anthony Bhatti DO (07/23/2020 2:53 PM) [facility] DICTATED and SIGNED BY: ANTHONY BHATTI DO DATE: 07/23/20 [id number] [facility] [address] [place], [place] [id number] IMAGING REPORT Signed PATIENT: DEAN TREVIZO TACCOUNT: [id number] : 1960 LOCATION: ER AGE: 60 SEX: F EXAM STATUS: REG ER ORD. PHYSICIAN: CATHY SHIN APRN REASON: SOA, CHEST PAIN, PREVIOUS COVID PROCEDURE: CT ANGIOGRAPHY CHEST Exam: CT of chest with contrast INDICATION: Short of air, chest pain, previous Covid TECHNIQUE: Sequential axial images through the chest obtained following the administration of 100 mL of Omni 350 IV contrast. Sagittal and coronal reformatted images were reconstructed from the axial data and reviewed. 3-D reformatted images were reconstructed from the axial data and reviewed. Comparisons: Chest x-ray same day FINDINGS: Visualized portions of the thyroid are unremarkable. No enlarged mediastinal lymph nodes. Heart size is normal. No pericardial effusion. Thoracic aorta has a normal course and caliber. Pulmonary artery is not enlarged. Airways are patent. No consolidation or pneumothorax. No suspicious lung nodules. No pleural effusion or thickening. Visualized upper abdomen is unremarkable. No suspicious osseous lesions or acute fractures. IMPRESSION: No pulmonary embolus identified within the main, lobar or segmental pulmonary arteries. Exposure: One or more of the following in the visualized dose reduction techniques were utilized for this examination: 1. Automated exposure control 2. Adjustment of the MA and/or KV according to patient size 3. Use of iterative of reconstructive technique Electronically signed by: Rosa Lamb MD (07/23/2020 6:23 PM) [facility] DICTATED and SIGNED BY: ROSA LAMB MD DATE: 07/23/20 [id number] 0 Course & Med Decision Making: Course & Med Decision Making Pertinent Labs and Imaging studies reviewed. (See chart for details) COVID-19 CRITERIA: The patient was evaluated during the global COVID-19 pandemic, and that diagnosis was suspected/considered upon their initial presentation. Their evaluation, treatment and testing was consistent with current guidelines for patients who present with complaints or symptoms that may be related to COVID-19. See HPI. Alert and oriented x4. Ambulatory with steady gait. Speaks in full complete sentences. Skin pink warm and dry. Afebrile. Lungs are clear to auscultation all lobes. Patient does have some nasal congestion. Chest x-ray s howed no acute findings. Patient was complaining of some chest heaviness but said that it resolved on its own. She refused the nitro. Patient's D-dimer was elevated and her CT of her chest is negative. Patient was tested for Covid and the flu. She is flu negative. Blood work is unremarkable. Spoke to Dr. Guzman who states that we should watch the patient as observation overnight for the chest pain. Patient agrees. [] Dragon Disclaimer: Dragon Disclaimer: This electronic medical record was generated, in whole or in part, using a voice recognition dictation system. COVID-19 Patient Risks: Age 65 or older: No Sign of co-morbidity: Yes Exp to person + for COVID: No Exp to PUI: Yes Travel from affected area: No Lower respiratory symptoms: Yes Fever: No Other: Yes (bodyaches) PPE Use: Full PPE with N95 mask or PAPR: Yes Departure Departure Impression: Primary Impression: Chest pain Qualified Codes: R07.9 - Chest pain, unspecified Disposition: 09 ADMITTED INPT THIS HOSP Admitting Physician: Kushal Guzman Condition: STABLE Referrals: KUSHAL GUZMAN MD (PCP) CATHY SHIN APRN Jul 23, 2020 14:46
--- NOTE | 2020-07-23 14:55 | RAD ---
XR CHEST 1V History: Reason: CHEST CONGESTION, COUGH / Spl. Instructions: / History: Comparison: January 19, 2020 Findings: No consolidation or pleural effusion. Normal heart size. No pneumothorax. Impression: 1. No acute cardiopulmonary process. Electronically signed by: Anthony Bhatti DO (07/23/2020 2:53 PM) [facility]
[2020-07-23 15:33] LABS: INFLUENZA A PATIENT NEGATIVE (NEGATIVE); INFLUENZA B PATIENT NEGATIVE (NEGATIVE)
[2020-07-23] MEDS ORDERED: NITROGLYCERIN SUBLINGUAL 0.4 MG BOTTLE OF 25. SL PRN ×2 (16:15→22:15)
[2020-07-23 16:40] LABS: BASO % 0 % (0-3); EOS % 0 % (0-3); HEMATOCRIT 42.4 % (36.0-47.0); LYMPH # 1.3 x10^3/uL (1.0-4.8); LYMPH % 22 % (24-48); MEAN CORPUSCULAR HEMOGLOBIN 30 pg (25-35); MEAN CORPUSCULAR HGB CONC 33 g/dL (31-37); MEAN CORPUSCULAR VOLUME 92 fL (79-100); MONO # 0.3 x10^3/uL (0.0-1.1); MONO % 4 % (0-9); NEUT # 4.6 x10^3/uL (1.8-7.7); NEUT % 74 % (31-73); PLATELET COUNT 232 x10^3/uL (140-400); RED BLOOD COUNT 4.62 x10^6/uL (3.50-5.40); RED CELL DISTRIBUTION WIDTH 14.3 % (11.5-14.5); WHITE BLOOD COUNT 6.2 x10^3/uL (4.0-11.0)
[2020-07-23 16:51] LABS: CALCIUM 8.6 mg/dL (8.5-10.1); GFR 68.4; POTASSIUM 3.9 mmol/L (3.5-5.1)
[2020-07-23 16:57] LABS: ALBUMIN 3.7 g/dL (3.4-5.0); ALBUMIN/GLOBULIN RATIO 0.9 (1.0-1.7); TOTAL BILIRUBIN 0.4 mg/dL (0.2-1.0)
--- NOTE | 2020-07-23 18:26 | RAD ---
Exam: CT of chest with contrast INDICATION: Short of air, chest pain, previous Covid TECHNIQUE: Sequential axial images through the chest obtained following the administration of 100 mL of Omni 350 IV contrast. Sagittal and coronal reformatted images were reconstructed from the axial da ta and reviewed. 3-D reformatted images were reconstructed from the axial data and reviewed. Comparisons: Chest x-ray same day FINDINGS: Visualized portions of the thyroid are unremarkable. No enlarged mediastinal lymph nodes. Heart size is normal. No pericardial effusion. Thoracic aorta has a normal course and caliber. Pulmon verenice artery is not enlarged. Airways are patent. No consolidation or pneumothorax. No suspicious lung nodules. No pleural effusion or thickening. Visualized upper abdomen is unremarkable. No suspicious osseous lesions or acute fractures. IMPRESSION: No pulmonary embolus identified within the main, lobar or segmental pulmonary arteries. Exposure: One or more of the following in the visualized dose reduction techniques were utilized for this examination: 1. Automated exposure control 2. Adjustment of the MA and/or KV according to patient size 3. Use of iterative of reconstructive technique Electronically signed by: Rosa Gandhi MD (07/23/2020 6:23 PM) [facility]
[2020-07-23] MEDS ORDERED: IOHEXOL 350 MG/ML 100 ML VIAL. IV ONE (18:30)
[2020-07-23] MEDS ORDERED: CONTRAST GIVEN. MC PRN (18:30)
[2020-07-23] MEDS ORDERED: ACETAMINOPHEN 325 MG TABLET. PO PRN (19:30)
[2020-07-23] MEDS ORDERED: IV NORMAL SALINE 1000ML BAG 1,000 ML IV ONE (19:30)
[2020-07-23] MEDS ORDERED: fentaNYL PF VIAL 100 MCG/2 ML VIAL IV PRN (19:30)
--- NOTE | 2020-07-23 20:29 | EKG ---
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
[2020-07-23] MEDS ORDERED: HYDROcodone/APAP 5/325MG 1 TAB TABLET PO PRN (22:15)
[2020-07-23] MEDS ORDERED: ATORVASTATIN CALCIUM 40 MG TABLET. PO SCH (22:30)
[2020-07-23] MEDS ORDERED: amLODIPine BESYLATE 5 MG TABLET PO SCH (22:30)
[2020-07-23] MEDS ORDERED: PANTOPRAZOLE 40 MG TABLET.DR. PO SCH (22:30)
[2020-07-23] MEDS: traMADol 50 MG TABLET PO PRN (23:16)
[2020-07-23] MEDS: FAMOTIDINE 20 MG TABLET. PO SCH (23:17)
[2020-07-23] MEDS: ONDANSETRON ODT 4 MG TAB.RAPDIS. PO SCH (23:17)
[2020-07-23] MEDS: METOPROLOL TART IMMED RELEASE 50 MG TABLET. PO SCH (23:17)
[2020-07-23 23:30] VITALS: BP 208/116
[2020-07-24 04:24] VITALS: BP 127/83
[2020-07-24] MEDS: traMADol 50 MG TABLET PO PRN (05:18)
[2020-07-24 07:00] VITALS: BP 145/103
[2020-07-24 07:42] LABS: CHOLESTEROL/HDL RATIO 2.7
[2020-07-24] MEDS: FAMOTIDINE 20 MG TABLET. PO SCH (07:57)
[2020-07-24] MEDS: ONDANSETRON ODT 4 MG TAB.RAPDIS. PO SCH (07:57)
[2020-07-24] MEDS: METOPROLOL TART IMMED RELEASE 50 MG TABLET. PO SCH ×2 (07:58→08:44)
[2020-07-24] MEDS ORDERED: ASPIRIN CHEWABLE 81 MG TABLET. PO SCH (08:00)
[2020-07-24] MEDS ORDERED: CLOPIDOGREL BISULFATE 75 MG TABLET PO SCH (08:00)
--- NOTE | 2020-07-24 08:30 | PDOC ---
PROGRESS NOTES Date of Service: DATE: 07/24/20 TIME: 08:30 Objective Objective Vital Signs Date Time Temp Pulse Resp B/P (MAP) Pulse Ox O2 Delivery O2 Flow Rate FiO2 07/24/20 06:18 18 Room Air 07/24/20 04:24 97.8 72 127/83 (98) 100 97.8 Physical Exam MUSCULOSKELETAL: Osteoarthritic changes both hands Comment Review of Relevant I have reviewed the following items jessica (where applicable) has been applied. Labs Laboratory Tests Test 07/23/20 14:45 07/23/20 16:25 07/23/20 19:47 07/23/20 23:00 Influenza Type A Antigen Negative (NEGATIVE) Influenza Type B Antigen Negative (NEGATIVE) White Blood Count 6.2 x10^3/uL (4.0-11.0) Red Blood Count 4.62 x10^6/uL (3.50-5.40) Hemoglobin 14.0 g/dL (12.0-15.5) Hematocrit 42.4 % (36.0-47.0) Mean Corpuscular Volume 92 fL (79-100) Mean Corpuscular Hemoglobin 30 pg (25-35) Mean Corpuscular Hemoglobin Concent 33 g/dL (31-37) Red Cell Distribution Width 14.3 % (11.5-14.5) Platelet Count 232 x10^3/uL (140-400) Neutrophils (%) (Auto) 74 % (31-73) Lymphocytes (%) (Auto) 22 % (24-48) Monocytes (%) (Auto) 4 % (0-9) Eosinophils (%) (Auto) 0 % (0-3) Basophils (%) (Auto) 0 % (0-3) Neutrophils # (Auto) 4.6 x10^3/uL (1.8-7.7) Lymphocytes # (Auto) 1.3 x10^3/uL (1.0-4.8) Monocytes # (Auto) 0.3 x10^3/uL (0.0-1.1) Eosinophils # (Auto) 0.0 x10^3/uL (0.0-0.7) Basophils # (Auto) 0.0 x10^3/uL (0.0-0.2) D-Dimer (Viji) 0.52 ug/mlFEU (0.00-0.50) Sodium Level 139 mmol/L (136-145) Potassium Level 3.9 mmol/L (3.5-5.1) Chloride Level 103 mmol/L (98-107) Carbon Dioxide Level 29 mmol/L (21-32) Anion Gap 7 (6-14) Blood Urea Nitrogen 7 mg/dL (7-20) Creatinine 1.0 mg/dL (0.6-1.0) Estimated GFR (Cockcroft-Gault) 68.4 BUN/Creatinine Ratio 7 (6-20) Glucose Level 113 mg/dL (70-99) Calcium Level 8.6 mg/dL (8.5-10.1) Total Bilirubin 0.4 mg/dL (0.2-1.0) Aspartate Amino Transf (AST/SGOT) 21 U/L (15-37) Alanine Aminotransferase (ALT/SGPT) 23 U/L (14-59) Alkaline Phosphatase 133 U/L (46-116) Troponin I Quantitative < 0.017 ng/mL (0.000-0.055) < 0.017 ng/mL (0.000-0.055) < 0.017 ng/mL (0.000-0.055) Total Protein 8.0 g/dL (6.4-8.2) Albumin 3.7 g/dL (3.4-5.0) Albumin/Globulin Ratio 0.9 (1.0-1.7) Test 07/24/20 07:00 Troponin I Quantitative < 0.017 ng/mL (0.000-0.055) Triglycerides Level 68 mg/dL (0-150) Cholesterol Level 138 mg/dL (0-200) LDL Cholesterol, Calculated 73 mg/dL (0-100) VLDL Cholesterol, Calculated 14 mg/dL (0-40) Non-HDL Cholesterol Calculated 87 mg/dL (0-129) HDL Cholesterol 51 mg/dL (40-60) Cholesterol/HDL Ratio 2.7 Thyroid Stimulating Hormone (TSH) 0.361 uIU/mL (0.358-3.74) Medications Current Medications Acetaminophen (Tylenol) 650 mg PRN Q4HRS PRN PO FEVER > 100.3'F; Start 07/23/20 at 19:30; Stop 07/24/20 at 19:29 Acetaminophen/ Hydrocodone Bitart (Lortab 5/325) 1 tab PRN Q6HRS PRN PO PAIN; Start 07/23/20 at 22:15 Amlodipine Besylate (Norvasc) 5 mg HS PO Last administered on 07/23/20at 23:16; Start 07/23/20 at 22:30 Aspirin (Aspirin Chewable) 81 mg DAILYWBKFT PO Last administered on 07/24/20at 07:57; Start 07/24/20 at 08:00 Atorvastatin Calcium (Lipitor) 40 mg QHS PO Last administered on 07/23/20at 23:17; Start 07/23/20 at 22:30 Clopidogrel Bisulfate (Plavix) 75 mg DAILYWBKFT PO Last administered on 07/24/20at 07:57; Start 07/24/20 at 08:00 Dexamethasone (Decadron) 10 mg 1X ONCE PO Last administered on 07/23/20at 14:45; Start 07/23/20 at 14:15; Stop 07/23/20 at 14:18; Status DC Famotidine (Pepcid) 20 mg BID PO Last administered on 07/24/20at 07:57; Start 07/23/20 at 22:30 Fentanyl Citrate (Fentanyl 2ml Vial) 50 mcg PRN Q1HR PRN IV PAIN Last administered on 07/23/20at 20:03; Start 07/23/20 at 19:30; Stop 07/24/20 at 19:29 Info (CONTRAST GIVEN -- Rx MONITORING) 1 each PRN DAILY PRN MC SEE COMMENTS; Start 07/23/20 at 18:30; Stop 07/25/20 at 18:29 Iohexol (Omnipaque 350 Mg/ml) 100 ml 1X ONCE IV Last administered on 07/23/20at 18:18; Start 07/23/20 at 18:30; Stop 07/23/20 at 18:31; Status DC Metoprolol Tartrate (Lopressor) 100 mg BID PO Last administered on 07/23/20at 23:17; Start 07/23/20 at 22:30 Nicotine (Nicoderm Cq 21mg) 1 patch DAILY TD Last administered on 07/24/20at 07:58; Start 07/24/20 at 09:00 Nitroglycerin (Nitrostat) 0.4 mg PRN Q5MIN PRN SL CHEST PAIN; Start 07/23/20 at 16:15 Nitroglycerin (Nitrostat) 0.4 mg PRN Q5MIN PRN SL CHEST PAIN; Start 07/23/20 at 22:15 Ondansetron HCl (Zofran Odt) 4 mg Q12HR PO Last administered on 07/24/20at 07:57; Start 07/23/20 at 22:30 Pantoprazole Sodium (Protonix) 40 mg HS PO Last administered on 07/23/20at 23:17; Start 07/23/20 at 22:30 Sodium Chloride 1,000 ml @ 1,000 mls/hr 1X ONCE IV Last administered on 07/23/20at 20:01; Start 07/23/20 at 19:30; Stop 07/23/20 at 20:29; Status DC Tramadol HCl (Ultram) 50 mg PRN Q6HRS PRN PO PAIN Last administered on 07/24/20at 05:18; Start 07/23/20 at 23:00 Vitals/I & O Vital Sign - Last 24 Hours 07/23/20 07/23/20 07/23/20 07/23/20 14:10 19:46 20:03 20:03 Temp 98.4 98.4 Pulse 71 69 70 Resp 20 18 B/P (MAP) 169/106 (127) 173/91 (118) 187/100 (129) Pulse Ox 100 99 100 100 O2 Delivery Room Air Room Air Room Air Room Air 07/23/20 07/23/20 07/23/20 07/23/20 20:18 20:33 21:53 22:00 Pulse 62 70 70 Resp 18 B/P (MAP) 180/97 (124) 182/98 (126) 173/80 (111) Pulse Ox 99 100 100 O2 Delivery Room Air Room Air Room Air Room Air 07/23/20 07/23/20 07/23/20 07/23/20 22:00 23:16 23:16 23:17 Pulse 70 70 Resp 18 B/P (MAP) 173/80 173/80 O2 Delivery Room Air Room Air 07/23/20 07/24/20 07/24/20 07/24/20 23:30 00:16 04:24 05:18 Temp 97.7 97.8 97.7 97.8 Pulse 74 72 Resp 20 18 20 17 B/P (MAP) 208/116 (146) 127/83 (98) Pulse Ox 100 100 O2 Delivery Room Air Room Air Room Air Room Air 07/24/20 06:18 Resp 18 O2 Delivery Room Air Justifications for Admission Other Justification MIGUEL GUZMAN MD Jul 24, 2020 08:30
[2020-07-24 08:44] VITALS: BP 145/103
[2020-07-24] MEDS ORDERED: NICOTINE 21MG PATCH. TD SCH (09:00)
[2020-07-24] MEDS ORDERED: Nicotine 21MG TD (09:09)
--- NOTE | 2020-07-24 09:18 | PDOC ---
Provider Note Date of Service: DATE: 07/24/20 TIME: 09:16 Provider Note Pt seen.H&P dictated.#[id number]. Pt want to go home today. out pt cardiac work up. covid test pending. Justifications for Admission Other Justification MIGUEL GUZMAN MD Jul 24, 2020 09:18
--- NOTE | 2020-07-24 09:29 | HP ---
ADMIT DATE: 07/24/2020 REASON FOR ADMISSION TO THE HOSPITAL: Chest pain for cardiac evaluation. HISTORY OF PRESENT ILLNESS: The patient is a 60-year-old female. The patient has a history of rheumatoid arthritis. She also has a history of anxiety, hypertension, hyperlipidemia, GERD and she had a cardiac evaluation in the past including cardiac catheterization in last 3 years, which shows a 50% single vessel RCA and she has been medically managed on aspirin and Plavix. She was having some chest discomfort yesterday with some mild shortness of breath. The patient was seen in the Emergency Room. Had a D-dimer was elevated. Had a CT angiogram was negative for pulmonary embolism. EKG negative for ischemia. Troponin was negative. The patient was admitted overnight for observation. She feels better and she is anxious to go home. PAST MEDICAL HISTORY: Has hypertension, hyperlipidemia, single vessel coronary artery disease, 50% RCA, medical treatment; arthritis, GERD and anxiety. PAST SURGICAL HISTORY: Gallbladder surgery and had a cardiac catheterization in last 3 years. ALLERGIES: None. MEDICATIONS AT HOME: The patient is on amlodipine 5 mg, metoprolol 50 mg twice a day, aspirin 81 mg daily, atorvastatin 40 mg daily, Plavix 75 mg daily, sublingual nitro, Zofran, pantoprazole 40 mg daily and tramadol for pain. PERSONAL HISTORY: Smokes 1 pack per day for at least 30 years. Denies alcohol. Denies any street drugs. FAMILY HISTORY: Positive for hypertension, heart disease and rheumatoid arthritis. REVIEW OF SYMPTOMS: Denies any fever. Has some sinus problems, has some mild chest pain, shortness of breath on admission, she feels better and rest of the 14-system was reviewed and negative. PHYSICAL EXAMINATION: GENERAL: The patient is not in any distress, feels better. VITAL SIGNS: At the time of admission shows temperature 98, pulse 71, respirations 20, blood pressure 170/106 and 100% saturation on room air. HEENT: Head is atraumatic. Pupils equal. Oral cavity, few teeth present. NECK: Supple. Thyroid not enlarged. JVD not elevated. CHEST: Symmetrical. CARDIOVASCULAR: S1, S2. LUNGS: Clear to auscultation. ABDOMEN: Soft, no mass palpable. EXTERNAL GENITALIA: No Diaz. RECTAL: Deferred. EXTREMITIES: No calf tenderness. Has arthritis in the knee. NEUROLOGIC: Moving all extremities. No focal deficits noted. LABORATORY DATA: Shows CBC was normal. Chem profile was unremarkable. D-dimer 0.52. Flu test negative and had a chest x-ray negative. CT angiogram of the chest negative for pulmonary embolism and EKG negative for ischemia. FINAL IMPRESSION: 1. Chest pain for evaluation. 2. Single-vessel coronary artery disease, 50% right coronary artery, medical treatment. 3. Hypertension. 4. Hyperlipidemia. 5. Smoker. 6. Obesity. 7. Rheumatoid arthritis. PLAN: At this time, the patient is admitted to the hospital for observation, serial enzymes negative, monitor tech negative. Going to see Cardiology. She is on optimal medical treatment. Smoking counseling was done. The patient wants to go home. Follow up with Cardiology outpatient for a stress test and echocardiogram. MIGUEL GUZMAN MD DR: AMY/ishmael JOB#: [id number] / [id number]
--- NOTE | 2020-07-24 11:24 | NUR ---
Pt was read discharge packet and no concerns/questions. Iv was taken out, and heart monitor was taken off. Pt was stable when leaving unit.
--- NOTE | 2020-07-24 12:47 | PDOC2 ---
CONSULT Date of Consult Date of Consult DATE: 07/24/20 TIME: 12:42 Reason for Consult Reason for Consult: Chest pain Referring Physician Referring Physician: Dr. Sahu Identification/Chief Complaint Chief Complaint Shortness of breath and chest tightness Source Source: Chart review, Patient History of Present Illness Reason for Visit: The patient is a 60-year-old female who was admitted through the emergency room last night for several days of mildly increasing shortness of breath and chest tightness. Patient reportedly is tested positive for Covid last month. She stated that she has had several days of increasing shortness of breath and came to the hospital to be evaluated. She does have a history of coronary disease with the most recent catheterization in 2018 that showed a 50% right coronary le henna and a normal ejection fraction. Initial lab was significant for mildly elevated D-dimer. The patient underwent a CTA of the chest that showed no evidence of a pulmonary embolism. EKG shows no acute changes. Chest x-ray shows no acute changes. Overnight the patient has ruled out with negative troponins x3. This morning she states she feels well with no chest pain and wishes to go home. Past Medical History Cardiovascular: CAD, HTN, VA, Hyperlipidemia, Other CENTRAL NERVOUS SYSTEM: Other GI: GERD, GI bleed Heme/Onc: Anemia NOS Musculoskeletal: Osteoarthritis Rheumatologic: Rheumatoid arthritis, Other Past Surgical History Past Surgical History: Cholecystectomy, Tubal Ligation, Other (Coronary stents. ) Family History Family History: Hypertension Social History <1 pack per day ALCOHOL: occassional Drugs: None Lives: with Family Current Medications Current Medications Current Medications Dexamethasone (Decadron) 10 mg 1X ONCE PO Last administered on 07/23/20at 14:45; Start 07/23/20 at 14:15; Stop 07/23/20 at 14:18; Status DC Nitroglycerin (Nitrostat) 0.4 mg PRN Q5MIN PRN SL CHEST PAIN; Start 07/23/20 at 16:15; Stop 07/24/20 at 11:27; Status DC Iohexol (Omnipaque 350 Mg/ml) 100 ml 1X ONCE IV Last administered on 07/23/20at 18:18; Start 07/23/20 at 18:30; Stop 07/23/20 at 18:31; Status DC Info (CONTRAST GIVEN -- Rx MONITORING) 1 each PRN DAILY PRN MC SEE COMMENTS; Start 07/23/20 at 18:30; Stop 07/24/20 at 11:27; Status DC Fentanyl Citrate (Fentanyl 2ml Vial) 50 mcg PRN Q1HR PRN IV PAIN Last administered on 07/23/20at 20:03; Start 07/23/20 at 19:30; Stop 07/24/20 at 11:27; Status DC Acetaminophen (Tylenol) 650 mg PRN Q4HRS PRN PO FEVER > 100.3'F; Start 07/23/20 at 19:30; Stop 07/24/20 at 11:27; Status DC Sodium Chloride 1,000 ml @ 1,000 mls/hr 1X ONCE IV Last administered on 07/23/20at 20:01; Start 07/23/20 at 19:30; Stop 07/23/20 at 20:29; Status DC Amlodipine Besylate (Norvasc) 5 mg HS PO Last administered on 07/23/20at 23:16; Start 07/23/20 at 22:30; Stop 07/24/20 at 11:27; Status DC Aspirin (Aspirin Chewable) 81 mg DAILYWBKFT PO Last administered on 07/24/20at 07:57; Start 07/24/20 at 08:00; Stop 07/24/20 at 11:27; Status DC Atorvastatin Calcium (Lipitor) 40 mg QHS PO Last administered on 07/23/20at 23:17; Start 07/23/20 at 22:30; Stop 07/24/20 at 11:27; Status DC Clopidogrel Bisulfate (Plavix) 75 mg DAILYWBKFT PO Last administered on 07/24/20at 07:57; Start 07/24/20 at 08:00; Stop 07/24/20 at 11:27; Status DC Famotidine (Pepcid) 20 mg BID PO Last administered on 07/24/20at 07:57; Start 07/23/20 at 22:30; Stop 07/24/20 at 11:27; Status DC Acetaminophen/ Hydrocodone Bitart (Lortab 5/325) 1 tab PRN Q6HRS PRN PO PAIN; Start 07/23/20 at 22:15; Stop 07/24/20 at 11:27; Status DC Metoprolol Tartrate (Lopressor) 100 mg BID PO Last administered on 07/24/20at 08:44; Start 07/23/20 at 22:30; Stop 07/24/20 at 11:27; Status DC Nitroglycerin (Nitrostat) 0.4 mg PRN Q5MIN PRN SL CHEST PAIN; Start 07/23/20 at 22:15; Stop 07/24/20 at 11:27; Status DC Ondansetron HCl (Zofran Odt) 4 mg Q12HR PO Last administered on 07/24/20at 07:57; Start 07/23/20 at 22:30; Stop 07/24/20 at 11:27; Status DC Pantoprazole Sodium (Protonix) 40 mg HS PO Last administered on 07/23/20at 23:17; Start 07/23/20 at 22:30; Stop 07/24/20 at 11:27; Status DC Tramadol HCl (Ultram) 50 mg PRN Q6HRS PRN PO PAIN Last administered on 07/24/20at 05:18; Start 07/23/20 at 23:00; Stop 07/24/20 at 11:27; Status DC Nicotine (Nicoderm Cq 21mg) 1 patch DAILY TD Last administered on 07/24/20at 07:58; Start 07/24/20 at 09:00; Stop 07/24/20 at 11:27; Status DC Active Scripts Active [Nicotine 21MG] 1 PATCH Patch 1 Patch TD DAILY 30 Days Protonix Packet (Pantoprazole Sodium) 40 Mg Granpkt.dr 40 Mg PO HS 30 Days Nitrostat (Nitroglycerin) 0.4 Mg Tab.subl 0.4 Mg SL PRN Q5MIN PRN 30 Days Clopidogrel (Clopidogrel Bisulfate) 75 Mg Tablet 75 Mg PO DAILYWBKFT 30 Days Atorvastatin Calcium 40 Mg Tablet 40 Mg PO QHS 30 Days Reported Ondansetron Odt (Ondansetron) 4 Mg Tab.rapdis 1 Tab PO Q12HR Flonase Allergy Relief (Fluticasone Propionate) 9.9 Ml [place].susp 2 Sprays NS DAILY Aspirin 81 Mg Tab.chew 1 Tab PO DAILY Amlodipine Besylate 5 Mg Tablet 5 Mg PO HS Metoprolol Tartrate 50 Mg Tablet 100 Mg PO BID Allergies Allergies: Coded Allergies: No Known Drug Allergies (Unverified , 07/29/17) ROS Respiratory: YES: Shortness of breath Cardiovascular: yes Chest Pain Physical Exam General: No acute distress HEENT: Atraumatic Lungs: Clear to auscultation Heart: Regular rate Abdomen: Normal bowel sounds Vitals VITALS Vital Signs Date Time Temp Pulse Resp B/P (MAP) Pulse Ox O2 Delivery O2 Flow Rate FiO2 07/24/20 08:44 67 145/103 07/24/20 08:00 Room Air 07/24/20 07:00 98.4 25 100 98.4 Labs Labs Laboratory Tests Test 07/23/20 14:45 07/23/20 16:25 07/23/20 19:47 07/23/20 23:00 Influenza Type A Antigen Negative (NEGATIVE) Influenza Type B Antigen Negative (NEGATIVE) White Blood Count 6.2 x10^3/uL (4.0-11.0) Red Blood Count 4.62 x10^6/uL (3.50-5.40) Hemoglobin 14.0 g/dL (12.0-15.5) Hematocrit 42.4 % (36.0-47.0) Mean Corpuscular Volume 92 fL (79-100) Mean Corpuscular Hemoglobin 30 pg (25-35) Mean Corpuscular Hemoglobin Concent 33 g/dL (31-37) Red Cell Distribution Width 14.3 % (11.5-14.5) Platelet Count 232 x10^3/uL (140-400) Neutrophils (%) (Auto) 74 % (31-73) Lymphocytes (%) (Auto) 22 % (24-48) Monocytes (%) (Auto) 4 % (0-9) Eosinophils (%) (Auto) 0 % (0-3) Basophils (%) (Auto) 0 % (0-3) Neutrophils # (Auto) 4.6 x10^3/uL (1.8-7.7) Lymphocytes # (Auto) 1.3 x10^3/uL (1.0-4.8) Monocytes # (Auto) 0.3 x10^3/uL (0.0-1.1) Eosinophils # (Auto) 0.0 x10^3/uL (0.0-0.7) Basophils # (Auto) 0.0 x10^3/uL (0.0-0.2) D-Dimer ([place]) 0.52 ug/mlFEU (0.00-0.50) Sodium Level 139 mmol/L (136-145) Potassium Level 3.9 mmol/L (3.5-5.1) Chloride Level 103 mmol/L (98-107) Carbon Dioxide Level 29 mmol/L (21-32) Anion Gap 7 (6-14) Blood Urea Nitrogen 7 mg/dL (7-20) Creatinine 1.0 mg/dL (0.6-1.0) Estimated GFR (Cockcroft-Gault) 68.4 BUN/Creatinine Ratio 7 (6-20) Glucose Level 113 mg/dL (70-99) Calcium Level 8.6 mg/dL (8.5-10.1) Total Bilirubin 0.4 mg/dL (0.2-1.0) Aspartate Amino Transf (AST/SGOT) 21 U/L (15-37) Alanine Aminotransferase (ALT/SGPT) 23 U/L (14-59) Alkaline Phosphatase 133 U/L (46-116) Troponin I Quantitative < 0.017 ng/mL (0.000-0.055) < 0.017 ng/mL (0.000-0.055) < 0.017 ng/mL (0.000-0.055) Total Protein 8.0 g/dL (6.4-8.2) Albumin 3.7 g/dL (3.4-5.0) Albumin/Globulin Ratio 0.9 (1.0-1.7) Test 07/24/20 07:00 Troponin I Quantitative < 0.017 ng/mL (0.000-0.055) Triglycerides Level 68 mg/dL (0-150) Cholesterol Level 138 mg/dL (0-200) LDL Cholesterol, Calculated 73 mg/dL (0-100) VLDL Cholesterol, Calculated 14 mg/dL (0-40) Non-HDL Cholesterol Calculated 87 mg/dL (0-129) HDL Cholesterol 51 mg/dL (40-60) Cholesterol/HDL Ratio 2.7 Thyroid Stimulating Hormone (TSH) 0.361 uIU/mL (0.358-3.74) Laboratory Tests Test 07/23/20 14:45 07/23/20 16:25 07/23/20 19:47 07/23/20 23:00 Influenza Type A Antigen Negative (NEGATIVE) Influenza Type B Antigen Negative (NEGATIVE) White Blood Count 6.2 x10^3/uL (4.0-11.0) Red Blood Count 4.62 x10^6/uL (3.50-5.40) Hemoglobin 14.0 g/dL (12.0-15.5) Hematocrit 42.4 % (36.0-47.0) Mean Corpuscular Volume 92 fL (79-100) Mean Corpuscular Hemoglobin 30 pg (25-35) Mean Corpuscular Hemoglobin Concent 33 g/dL (31-37) Red Cell Distribution Width 14.3 % (11.5-14.5) Platelet Count 232 x10^3/uL (140-400) Neutrophils (%) (Auto) 74 % (31-73) Lymphocytes (%) (Auto) 22 % (24-48) Monocytes (%) (Auto) 4 % (0-9) Eosinophils (%) (Auto) 0 % (0-3) Basophils (%) (Auto) 0 % (0-3) Neutrophils # (Auto) 4.6 x10^3/uL (1.8-7.7) Lymphocytes # (Auto) 1.3 x10^3/uL (1.0-4.8) Monocytes # (Auto) 0.3 x10^3/uL (0.0-1.1) Eosinophils # (Auto) 0.0 x10^3/uL (0.0-0.7) Basophils # (Auto) 0.0 x10^3/uL (0.0-0.2) D-Dimer ([place]) 0.52 ug/mlFEU (0.00-0.50) Sodium Level 139 mmol/L (136-145) Potassium Level 3.9 mmol/L (3.5-5.1) Chloride Level 103 mmol/L (98-107) Carbon Dioxide Level 29 mmol/L (21-32) Anion Gap 7 (6-14) Blood Urea Nitrogen 7 mg/dL (7-20) Creatinine 1.0 mg/dL (0.6-1.0) Estimated GFR (Cockcroft-Gault) 68.4 BUN/Creatinine Ratio 7 (6-20) Glucose Level 113 mg/dL (70-99) Calcium Level 8.6 mg/dL (8.5-10.1) Total Bilirubin 0.4 mg/dL (0.2-1.0) Aspartate Amino Transf (AST/SGOT) 21 U/L (15-37) Alanine Aminotransferase (ALT/SGPT) 23 U/L (14-59) Alkaline Phosphatase 133 U/L (46-116) Troponin I Quantitative < 0.017 ng/mL (0.000-0.055) < 0.017 ng/mL (0.000-0.055) < 0.017 ng/mL (0.000-0.055) Total Protein 8.0 g/dL (6.4-8.2) Albumin 3.7 g/dL (3.4-5.0) Albumin/Globulin Ratio 0.9 (1.0-1.7) Test 07/24/20 07:00 Troponin I Quantitative < 0.017 ng/mL (0.000-0.055) Triglycerides Level 68 mg/dL (0-150) Cholesterol Level 138 mg/dL (0-200) LDL Cholesterol, Calculated 73 mg/dL (0-100) VLDL Cholesterol, Calculated 14 mg/dL (0-40) Non-HDL Cholesterol Calculated 87 mg/dL (0-129) HDL Cholesterol 51 mg/dL (40-60) Cholesterol/HDL Ratio 2.7 Thyroid Stimulating Hormone (TSH) 0.361 uIU/mL (0.358-3.74) Images Images Chest x-ray shows no acute changes. CTA of the chest shows no pulmonary embolism. Assessment/Plan Assessment/Plan 1. Mild shortness of breath with chest tightness. Patient symptoms have resolved. Her EKG shows no acute changes. Troponin has been negative x3. The patient is feeling well. We discussed the possibility of a stress test. Patient would like to proceed with an outpatient stress test. She has in the past been seen by and she will follow up with the physicians. If she has problem with a follow-up I stated the patient could call our office for follow- up. 2. Mild shortness of breath with mildly elevated D-dimer. CTA is negative for a pulmonary embolism. Patient is feeling better with no shortness of breath this morning. 3. Hypertension. Continue present medications. 4. Hyperlipidemia. Again continue present medications. Thank you for allowing us to participate in the care of your patient. BRAXTON ZAMARRIPA MD Jul 24, 2020 12:47
--- NOTE | 2020-07-24 14:18 | NUR ---
SW following for discharge planning. Spoke with RN and reviewed chart. Pt discharged home self-care today, 07/24. No SW needs.
--- NOTE | 2020-07-25 09:24 | NUR ---
IP: Attempted to contact pt concerning the COVID results. No answer, left a voicemail to return the call.
== END 2020-07-24 11:20 | disposition home or self-care (01) ==
LOC: ER 13:09 → 6 SOUTH 20:38
PROVIDERS: ADMIT Internal Medicine; ATTEND Internal Medicine
DX: R07.89 Other chest pain (principal); Z20.822 Contact with and (suspected) exposure to COVID-19; I25.10 Atherosclerotic heart disease of native coronary artery without angina pectoris; I10 Essential (primary) hypertension; E78.5 Hyperlipidemia, unspecified; M06.9 Rheumatoid arthritis, unspecified; K21.9 Gastro-esophageal reflux disease without esophagitis; E66.9 Obesity, unspecified; F41.9 Anxiety disorder, unspecified; F17.200 Nicotine dependence, unspecified, uncomplicated; Z68.41 Body mass index [BMI] 40.0-44.9, adult; Z86.16 Personal history of COVID-19; Z95.5 Presence of coronary angioplasty implant and graft; Z79.82 Long term (current) use of aspirin; Z79.02 Long term (current) use of antithrombotics/antiplatelets; Z98.890 Other specified postprocedural states
CPT/HCPCS: 36415; 71045; 71275; 80053; 80061; 84443; 84484; 85025; 85379; 87804; 93005; 96361; 96374; 99285; G0378; J3010; J7030; Q9967; U0003; G0379

== ENCOUNTER 2020-08-11 00:32 | Emergency (ER) | payer MEDICARE, OTHER ==
[~2020-08-11] VITALS: Ht 180.3 cm; Wt 150.0 kg
[~2020-08-11 00:32] MED LIST changes: +Nicotine 21MG TD
[2020-08-11 01:18] LABS: BASO % 0 % (0-3); EOS # 0.2 x10^3/uL (0.0-0.7); EOS % 2 % (0-3); HEMOGLOBIN 12.9 g/dL (12.0-15.5); LYMPH # 2.5 x10^3/uL (1.0-4.8); LYMPH % 32 % (24-48); MEAN CORPUSCULAR HEMOGLOBIN 30 pg (25-35); MEAN CORPUSCULAR HGB CONC 33 g/dL (31-37); MEAN CORPUSCULAR VOLUME 91 fL (79-100); MONO # 0.4 x10^3/uL (0.0-1.1); MONO % 6 % (0-9); NEUT # 4.6 x10^3/uL (1.8-7.7); NEUT % 60 % (31-73); PLATELET COUNT 208 x10^3/uL (140-400); RED CELL DISTRIBUTION WIDTH 13.9 % (11.5-14.5); WHITE BLOOD COUNT 7.7 x10^3/uL (4.0-11.0)
--- NOTE | 2020-08-11 01:18 | PHYS DOC ---
Past Medical History Past Medical History: Arthritis, GERD, Hypertension, [place], Other Additional Past Medical Histor: RA Past Surgical History: Angioplasty, Cholecystectomy, Other Additional Past Surgical Histo: cyst removed from back, Cardiac stent x2 Smoking Status: Current Every Day Smoker Additional Information: 05/06 PPD Alcohol Use: Occasionally Drug Use: None General Adult EDM: Chief Complaint: MULTIPLE COMPLAINTS HPI: HPI: 60-year-old female past medical history of cad w/stents x2, rheumatoid arthritis, hypertension, obesity and GERD presents to the ED with complaints of mild, gradual onset headache, generalized body aches and shooting pains down both arms that started in the evening of August 08 after patient received her first dose of [employer] Covid vaccine. Patient reports no syncope, headache, neck stiffness, neurologic deficits, unstable gait, fever, nausea, vomiting, diaphoresis, chest pain or diarrhea. States she has rheumatoid arthritis and is unsure if the body aches are related to that were from the Covid vaccine. Is tolerating oral intake. Reports her body aches her primary concern, headache is very mild and relieved with Tylenol. Review of Systems: Review of Systems: Constitutional: Denies fever or chills. [] Eyes: Denies change in visual acuity. [] HENT: Denies nasal congestion or sore throat. [] Respiratory: Denies cough or shortness of breath. [] Cardiovascular: Denies chest pain or edema. [] GI: Denies abdominal pain, nausea, vomiting, bloody stools or diarrhea. [] : Denies dysuria or hematuria Musculoskeletal: Denies back pain or joint pain. [] Integument: Denies rash or diaphoresis Neurologic: Denies headache, focal weakness or sensory changes. [] Endocrine: Denies polyuria or polydipsia. [] Lymphatic: Denies swollen glands. [] Psychiatric: Denies depression or anxiety. [] Heart Score: C/O Chest Pain: No Risk Factors: Risk Factors: DM, Current or recent (<one month) smoker, HTN, HLP, family history of CAD, obesity. Risk Scores: Score 0 - 3: 2.5% MACE over next 6 weeks - Discharge Home Score 4 - 6: 20.3% MACE over next 6 weeks - Admit for Clinical Observation Score 7 - 10: 72.7% MACE over next 6 weeks - Early Invasive Strategies Allergies: Allergies: Allergies Coded Allergies Type Severity Reaction Last Updated Verified No Known Drug Allergies 07/29/17 No Physical Exam: PE: Constitutional: Well developed, well nourished, no acute distress, non-toxic appearance-calm, talkative HENT: Normocephalic, atraumatic, Eyes: EOMI, conjunctiva normal, no discharge. Neck: Normal range of motion, supple, Cardiovascular: S1/2 present, regular rhythm Lungs & Thorax: Speaking in full sentences, bilateral equal chest rise, no tachypnea or increased work of breathing Abdomen: soft, no tenderness, Skin: Warm, dry, no erythema, no rash, hyperpigmented scars over upper chest patient reports is related to shingles Back: No tenderness, no CVA tenderness. [] Extremities: No tenderness, no cyanosis, no lower extremity edema Neurologic: Alert and oriented X 3, normal motor function, normal sensory fun ction, no focal deficits noted. [] Psychologic: Affect normal, judgement normal, mood normal. [] Current Patient Data: Vital Signs: Vital Signs Date Time Temp Pulse Resp B/P (MAP) Pulse Ox O2 Delivery O2 Flow Rate FiO2 08/11/20 00:35 98.1 65 18 164/109 (127) 100 Room Air 98.1 EKG: EK ekg c/w limb lead reversal 0214 sinus rhythm at 59 bpm, no axis deviation, normal intervals, T wave inversion lead III, no ST elevations or ST depressions Radiology/Procedures: Radiology/Procedures: [] Course & Med Decision Making: Course & Med Decision Making Pertinent Labs and Imaging studies reviewed. (See chart for details) Concern for generalized body aches and myalgias after receiving first Covid vaccine at hemodynamically stable patient. Mild hypertension with no end organ damage. Normal renal function. CK slightly elevated. Recommend oral hydration, rest and [id number] analgesia. Will discharge home with strict ED return precautions were given for syncope, head injury, fever or nuchal rigidity. Encouraged urgent outpatient follow-up with PMD for reevaluation in 1 week. Life-threatening processes were considered but are low suspicion at this time, given history, physical exam and ED workup. Pt was educated on all presc ription medications and adverse effects. All patient's questions were answered and pt was stable at time of discharge. Life/limb-threatening differential includes but is not limited to, meningitis, encephalitis, intracranial hemorrhage, obstructive hydrocephaly, CVA, carbon monoxide poisoning, cerebral or cavernous venous thrombosis, hypertensive emergency, preeclampsia, giant cell arteritis, glaucoma, carotid or vertebral artery dissection, superior vena cava syndrome, infection, optic neuritis, or space-occupying lesions. I spoken with the patient and her caregivers. I explained the patient's condition, diagnoses and treatment plan based on the information available to me at this time. I have answered the patient and her caregiver's questions and addressed any concerns. The patient and her caregivers have a good understanding of patient's diagnosis, condition and treatment plan as can be expected at this point. Vital signs have been stable. Patient's condition is stable and appropriate for discharge from the emergency department. Patient will pursue further outpatient evaluation with primary care physician or other designated or consulting physician as outlined in the discharge instructions. The patient and/or caregivers are agreeable to this plan of care and follow-up instructions have been explained in detail. The patient and/or caregivers have received these instructions in written form and have expressed an understanding of the discharge instructions. The patient and/or caregivers are aware that any significant change of condition or worsening of symptoms should prompt immediate return to this or the closest emergency department or call to 911. Adela Disclaimer: [employer] Disclaimer: This electronic medical record was generated, in whole or in part, using a voice recognition dictation system. Departure Departure Impression: Primary Impression: Myalgia after COVID-19 vaccination Additional Impression: Headache Disposition: 01 DC HOME SELF CARE/HOMELESS Condition: STABLE Referrals: MIGUEL GUZMAN MD (PCP) For reevaluation in the next week Patient Instructions: General Headache Without Cause, Myalgia, Adult Additional Instructions: EMERGENCY DEPARTMENT GENERAL DISCHARGE INSTRUCTIONS Thank you for coming to [facility] Emergency Department (ED) [place] and trusting us with you care. We trust that you had a positive experience in our Emergency Department. If you wish to speak to the department management, you may call the Director at [phone]. YOUR FOLLOW UP INSTRUCTIONS ARE FOLLOWS: 1. Do you have a private Doctor? If you do not have a private doctor, please ask for a resource list of physicians or clinics that may be able to assist you with follow up care. 2. The Emergency Physicain has interpreted your x-rays. The X-Ray specialist will also review them. If there is a change in the findings, you will be notified in 48 hours when at all possible. 3. A lab test or culture has been done, your results will be reviewed and you will be notified if you need a change in treatment. ADDITIONAL INSTRUCTIONS AND INFORMATION: 1. Your care today has been supervised by a physician who is specially trained in emergency care. Many problems require more than one evaluation for a complete diagnosis and treatment. We recommend that you schedule your follow up appointment as recommended to ensure complete treatment of you illness or injury. If you are unable to obtain follow up care and continue to have a problem, or if your condition worsens, we recommend that you return to the ED. 2. We are not able to safely determine your condition over the phone nor are we able to give sound medical advice over the phone. For these safety reasons, if you call for medical advice we will ask you to come to the ED for further evaluation. 3. If you have any questions regarding these discharge instructions please call the ED at [phone]. SAFETY INFORMATION: In the interest of safety, wellness, and injury prevention; we encourage you to wear your sealbelt, if you smoke; quite smoking, and we encourage family to use a protective helmet for bicycling and other sporting events that present an increased risk for head injury. IF YOUR SYMPTOMS WORSEN OR NEW SYMPTOMS DEVELOP, OR YOU HAVE CONCERNS ABOUT YOUR CONDITION; OR IF YOUR CONDITION WORSENS WHILE YOU ARE WAITING FOR YOUR FOLLOW UP APPOINTMENT; EITHER CONTACT YOUR PRIMARY CARE DOCTOR, THE PHYSICIAN WHOSE NAME AND NUMBER YOU WERE GIVEN, OR RETURN TO THE ED IMMEDIATELY. [facility] DO Aug 11, 2020 01:18
--- NOTE | 2020-08-11 01:21 | EKG ---
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
[2020-08-11 01:32] LABS: CALCIUM 8.1 mg/dL (8.5-10.1); CREATININE 0.8 mg/dL (0.6-1.0); GFR 88.5; POTASSIUM 3.5 mmol/L (3.5-5.1)
--- NOTE | 2020-08-11 02:20 | EKG ---
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
[2020-08-11 02:32] VITALS: BP 175/102
== END 2020-08-11 02:35 | disposition home or self-care (01) ==
LOC: ER 00:32
DX: R51.9 Headache, unspecified (principal); M79.10 Myalgia, unspecified site; M19.90 Unspecified osteoarthritis, unspecified site; K21.9 Gastro-esophageal reflux disease without esophagitis; I10 Essential (primary) hypertension; I25.2 Old myocardial infarction; F17.200 Nicotine dependence, unspecified, uncomplicated; Z98.890 Other specified postprocedural states; Z90.89 Acquired absence of other organs; Z90.49 Acquired absence of other specified parts of digestive tract
CPT/HCPCS: 36415; 80048; 82550; 85025; 93005; 99284

== ENCOUNTER 2020-09-09 01:59 | Emergency (ER) | payer MEDICARE, OTHER ==
[~2020-09-09] VITALS: Ht 180.3 cm; Wt 136.4 kg
[~2020-09-09 01:59] MED LIST changes: -ACYC800T PO; +ACYC800T88 PO
--- NOTE | 2020-09-09 02:17 | PHYS DOC ---
Past Medical History Past Medical History: Arthritis, GERD, Hypertension, SD, Other Additional Past Medical Histor: RA Past Surgical History: Angioplasty, Cholecystectomy, Other Additional Past Surgical Histo: cyst removed from back, Cardiac stent x2 Smoking Status: Current Every Day Smoker Alcohol Use: Occasionally Drug Use: None General Adult EDM: Chief Complaint: CHEST PAIN HPI: HPI: 60 yo F past medical history of GERD, CAD with cardiac cath with 50% right RCA 2 years ago, prior myalgia and hypertension, preentz the ED with complaints of Review of Systems: Review of Systems: Constitutional: Denies fever or chills. [] Eyes: Denies change in visual acuity. [] HENT: Denies nasal congestion or sore throat. [] Respiratory: Denies cough or shortness of breath. [] Cardiovascular: Denies chest pain or edema. [] GI: Denies abdominal pain, nausea, vomiting, bloody stools or diarrhea. [] : Denies dysuria. [] Musculoskeletal: Denies back pain or joint pain. [] Integument: Denies rash. [] Neurologic: Denies headache, focal weakness or sensory changes. [] Endocrine: Denies polyuria or polydipsia. [] Lymphatic: Denies swollen glands. [] Psychiatric: Denies depression or anxiety. [] Heart Score: C/O Chest Pain: Yes HEART Score for Chest Pain: HEART Score for Chest Pain Response (Comments) Value ECG Normal 0 Total 0 Risk Factors: Risk Factors: DM, Current or recent (<one month) smoker, HTN, HLP, family history of CAD, obesity. Risk Scores: Score 0 - 3: 2.5% MACE over next 6 weeks - Discharge Home Score 4 - 6: 20.3% MACE over next 6 weeks - Admit for Clinical Observation Score 7 - 10: 72.7% MACE over next 6 weeks - Early Invasive Strategies Allergies: Allergies: Allergies Coded Allergies Type Severity Reaction Last Updated Verified No Known Drug Allergies 07/29/17 No Physical Exam: PE: Constitutional: Well developed, well nourished, no acute distress, non-toxic appearance. HENT: Normocephalic, atraumatic, Eyes: EOMI, conjunctiva normal, no discharge. Neck: Normal range of motion, supple, Cardiovascular: S1/2 present, regular rhythm Lungs & Thorax: Speaking in full sentences, bilateral equal chest rise, no tachypnea or increased work of breathing Abdomen: soft, no tenderness, Skin: Warm, dry, no erythema, no rash. [] Back: No tenderness, no CVA tenderness. [] Extremities: No tenderness, no cyanosis, no lower extremity edema Neurologic: Alert and oriented X 3, normal motor function, normal sensory function, no focal deficits noted. [] Psychologic: Affect normal, judgement normal, mood normal. [] EKG: EKG: Sinus rhythm at 65 bpm, left axis deviation, normal intervals, T wave inversion lead III, no ST elevations or ST depressions Radiology/Procedures: Radiology/Procedures: [] Course & Med Decision Making: Course & Med Decision Making Pertinent Labs and Imaging studies reviewed. (See chart for details) Will discharge home with strict ED return precautions were given for []. Encouraged urgent outpatient follow-up with PMD and [specialist]. Life- threatening processes were considered but are low suspicion at this time, given history, physical exam and ED workup. Pt was educated on all prescription medications and adverse effects. All patient's questions were answered and pt was stable at time of discharge. Life/limb-threatening differential includes but is not limited to, acute myocardial infarction, aortic dissection, congestive heart failure, esophageal injury including rupture, surgical abdomen, arrhythmia, cardiomyopathy, myocarditis, pericarditis, peptic ulcer disease, pneumomediastinum, pneumonia, pneumothorax, pulmonary embolus, unstable angina, rib fracture, contusion, pericardial tamponade or effusion, traumatic injury including mediastinal hemorrhage or hematoma, or pulmonary contusion. I spoken with the patient and her caregivers. I explained the patient's condition, diagnoses and treatment plan based on the information available to me at this time. I have answered the patient and her caregiver's questions and addressed any concerns. The patient and her caregivers have a good understandin g of patient's diagnosis, condition and treatment plan as can be expected at this point. Vital signs have been stable. Patient's condition is stable and appropriate for discharge from the emergency department. Patient will pursue further outpatient evaluation with primary care physician or other designated or consulting physician as outlined in the discharge instructions. The patient and/or caregivers are agreeable to this plan of care and follow-up instructions have been explained in detail. The patient and/or caregivers have received these instructions in written form and have expressed an understanding of the discharge instructions. The patient and/or caregivers are aware that any significant change of condition or worsening of symptoms should prompt immediate return to this or the closest emergency department or call to 911. Adela Disclaimer: Adela Disclaimer: This electronic medical record was generated, in whole or in part, using a voice recognition dictation system. Departure Departure Impression: Primary Impression: COVID-19 vaccine series completed Additional Impression: Chest pain Disposition: HOME / SELF CARE / HOMELESS Condition: STABLE Referrals: MIGUEL GUZMAN MD (PCP) in 24 hours or FOLLOW UP WITH FAMILY MEDICINE: [address] [place] [address] Patient Instructions: Chest Pain (Nonspecific) Additional Instructions: FOLLOW UP WITH CARDIOLOGY: For outpatient follow-up in the next 7 days [facility] [address] [place] [address] EMERGENCY DEPARTMENT GENERAL DISCHARGE INSTRUCTIONS Thank you for coming to [facility] Emergency Department (ED) today and trusting us with you care. We trust that you had a positive experience in our Emergency Department. If you wish to speak to the department management, you may call the Director at [phone]. YOUR FOLLOW UP INSTRUCTIONS ARE FOLLOWS: 1. Do you have a private Doctor? If you do not have a private doctor, please ask for a resource list of physicians or clinics that may be able to assist you with follow up care. 2. The Emergency Physicain has interpreted your x-rays. The X-Ray specialist will also review them. If there is a change in the findings, you will be notified in 48 hours when at all possible. 3. A lab test or culture has been done, your results will be reviewed and you will be notified if you need a change in treatment. ADDITIONAL INSTRUCTIONS AND INFORMATION: 1. Your care today has been supervised by a physician who is specially trained in emergency care. Many problems require more than one evaluation for a complete diagnosis and treatment. We recommend that you schedule your follow up appointment as recommended to ensure complete treatment of you illness or injury. If you are unable to obtain follow up care and continue to have a problem, or if your condition worsens, we recommend that you return to the ED. 2. We are not able to safely determine your condition over the phone nor are we able to give sound medical advice over the phone. For these safety reasons, if you call for medical advice we will ask you to come to the ED for further evaluation. 3. If you have any questions regarding these discharge instructions please call the ED at [phone]. SAFETY INFORMATION: In the interest of safety, wellness, and injury prevention; we encourage you to wear your sealbelt, if you smoke; quite smoking, and we encourage family to use a protective helmet for bicycling and other sporting events that present an increased risk for head injury. IF YOUR SYMPTOMS WORSEN OR NEW SYMPTOMS DEVELOP, OR YOU HAVE CONCERNS ABOUT YOUR CONDITION; OR IF YOUR CONDITION WORSENS WHILE YOU ARE WAITING FOR YOUR FOLLOW UP APPOINTMENT; EITHER CONTACT YOUR PRIMARY CARE DOCTOR, THE PHYSICIAN WHOSE NAME AND NUMBER YOU WERE GIVEN, OR RETURN TO THE ED IMMEDIATELY. EHSAN ECHEVERRIA DO September 09, 2020 02:17
--- NOTE | 2020-09-09 02:57 | EKG ---
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
--- NOTE | 2020-09-09 03:54 | RAD ---
INDICATION: Shortness of breath COMPARISON: July 23, 2020 FINDINGS: Single view of chest obtained. Enlarged cardiac silhouette. Relative opacity at lung bases likely secondary to overlap of soft tissu e structures. Overall appearance of the lungs is similar to prior without a new region of consolidati on. IMPRESSION: * Similar appearance compared to prior without a new region of consolidation Electronically signed by: Jeremy Adam MD (09/09/2020 3:52 AM) [id number]
[2020-09-09 04:13] LABS: BARBITURATES NEG (NEG); BENZODIAZEPINES NEG (NEG); CANNABINOIDS NEG (NEG); COCAINE NEG (NEG); METHADONE NEG (NEG); OPIATES NEG (NEG); PHENCYCLIDINE NEG (NEG)
[2020-09-09 04:33] LABS: BASO % 0 % (0-3); EOS # 0.2 x10^3/uL (0.0-0.7); EOS % 2 % (0-3); HEMATOCRIT 40.3 % (36.0-47.0); HEMOGLOBIN 13.2 g/dL (12.0-15.5); LYMPH # 2.3 x10^3/uL (1.0-4.8); LYMPH % 27 % (24-48); MEAN CORPUSCULAR HEMOGLOBIN 30 pg (25-35); MEAN CORPUSCULAR HGB CONC 33 g/dL (31-37); MEAN CORPUSCULAR VOLUME 91 fL (79-100); MONO # 0.3 x10^3/uL (0.0-1.1); MONO % 4 % (0-9); NEUT # 5.9 x10^3/uL (1.8-7.7); NEUT % 67 % (31-73); PLATELET COUNT 232 x10^3/uL (140-400); RED BLOOD COUNT 4.43 x10^6/uL (3.50-5.40); RED CELL DISTRIBUTION WIDTH 13.6 % (11.5-14.5); WHITE BLOOD COUNT 8.8 x10^3/uL (4.0-11.0)
[2020-09-09 04:57] LABS: AMPHETAMINE/METHAMPHETAMINE NEG (NEG)
[2020-09-09 05:07] LABS: CALCIUM 8.1 mg/dL (8.5-10.1); GFR 68.4; POTASSIUM 3.6 mmol/L (3.5-5.1)
[2020-09-09 05:13] LABS: ALBUMIN 3.8 g/dL (3.4-5.0); ALBUMIN/GLOBULIN RATIO 1.2 (1.0-1.7); MAGNESIUM 2.2 mg/dL (1.8-2.4); TOTAL BILIRUBIN 0.3 mg/dL (0.2-1.0)
[2020-09-09 06:26] VITALS: BP 157/99
== END 2020-09-09 06:50 | disposition home or self-care (01) ==
LOC: ER 01:59
DX: R07.9 Chest pain, unspecified (principal); K21.9 Gastro-esophageal reflux disease without esophagitis; M19.90 Unspecified osteoarthritis, unspecified site; I10 Essential (primary) hypertension; I25.2 Old myocardial infarction; F17.200 Nicotine dependence, unspecified, uncomplicated; Z98.61 Coronary angioplasty status
CPT/HCPCS: 36415; 71045; 80053; 80307; 83690; 83735; 83880; 84484; 85025; 93005; 99285

== ENCOUNTER → 2021-02-23 | Outpatient (CLI) | payer MEDICARE, OTHER ==
[~2021-02-23] MED LIST changes: -CLIN150C15 PO; +CLIN150C16 PO
--- NOTE | 2021-02-23 13:21 | PDOC ---
Progress Note - Pain Clinic Date of Service: DOS: DATE: 02/23/21 TIME: 13:17 Diagnosis: Dx: Lumbar radiculopathy with lumbar degenerative disc disease and lumbar spondylosis History or Present Illness: HPI: 60-year-old female with a history of pain low back bilateral lower extremities for at least 7 years or so not result of any specific injury or accident that she is aware of the getting worse with time in the low back and the bilateral lower extremities posterior gluteus posterior thigh lateral thigh anterior thigh anteromedial thigh medial lower leg and into the calf bilaterally as well patient reports right is essentially equal to left as well as her back with significant pain as well patient reports her pain is a 10 on scale 10 is worst 8 on average and a 4 to sleep and is a 7 today patient reports no loss of motor function but significant fatigability lower extremity with walking standing aylin nging positions better with sitting or laying down generally not awaken her from sleep at night but can on occasion. Patient reports she still taking her Plavix and was not able to perform physical therapy which we ordered for her in the past about 1 year ago. Patient reports her pain is essentially increasing with time walking and standing again with fatigability in the lower extremities patient reports pain is burning aching the back dull and sharp alternating shooting in the lower extremities cramping and stabbing as well is can be severe and unbearable at times. Physical Exam: VS: Blood pressure is 119/83 pulse 68 respirations are 18 temperature is 99.0 F height is 5 foot 11 inches weight is 299 pounds PE: PHYSICAL EXAMINATION: GENERAL: The patient is awake, alert, oriented, appropriate, very pleasant in demeanor HEENT: Shows normocephalic, atraumatic. Extraocular movements are intact and symmetrical. Oral cavity: Mucous membranes moist and pink. Dentition is intact. NECK: Shows anterior throat supple without palpable lymphadenopathy noted. Swallow reflex symmetrical. CHEST: Shows normal on inspection. Breath sounds are clear bilaterally, distant but no rales rhonchi wheezes. HEART: Shows S1, S2 clear. No murmurs auscultated. ABDOMEN: Soft, nontender, nondistended, obese. No palpable organomegaly is noted. BACK: Shows spine grossly in the midline. Normal-appearing cervical lordotic curvature. There is increased thoracic kyphosis, some flattening of the lumbar lordotic curvature. Lumbar paraspinous muscles show symmetrical on inspection, on palpation shows some moderate tenderness diffusely throughout the upper, middle and lower distribution of the paraspinous muscles without specific trig marques points, without radiation of pain. The patient has good rotational motion of the lumbar spine, both laterally as well as extension and flexion without significant difficulty. No tenderness over the spinous processes, sacrum or sacroiliac regions. EXTREMITIES: Lower extremities show deep tendon reflexes 1+ in the patellar and tendo calcaneus tendons. Motor exam is 4 on a scale of 5 with right dorsiflexion, extension, quadriceps and hamstring flexion and 4/5 on the left. Peripheral pulses are 1+ posterior tibial. No peripheral edema is noted bilaterally. Lower extremities are warm and dry to touch, equal in color and appearance. SKIN: Shows warm and dry, good turgor. No edema. No sores, rashes or bruising throughout. Procedure: Procedure: Options were discussed with the patient. Patient chart reviews her current medication regimen updated current review of systems updated today as well. We will check with patient's prescribing physician to hold her Plavix for 7 days prior to lumbar epidural steroid injection. Also patient will be referred for physical therapy as she would like to pursue this and was unable to do this on her last visit and we will reorder this for stretching strength exercises as well as heat massage therapies and postural retraining. Patient will return to clinic pending approval to hold the Plavix if deemed safe and appropriate we will have her hold this for lumbar epidural steroid injection. Medication Injected: Med Injected: None Condition at Discharge: Condition at Discharge: Condition at discharge is stable. ILYA BREWSTER MD Feb 23, 2021 13:21
== END | disposition home or self-care (01) ==
LOC: PNCL 12:56
PROVIDERS: ATTEND Anesthesiology
DX: M51.16 Intervertebral disc disorders with radiculopathy, lumbar region (principal); M47.26 Other spondylosis with radiculopathy, lumbar region; I25.10 Atherosclerotic heart disease of native coronary artery without angina pectoris; I10 Essential (primary) hypertension; E78.00 Pure hypercholesterolemia, unspecified; E66.9 Obesity, unspecified; M19.90 Unspecified osteoarthritis, unspecified site; F17.210 Nicotine dependence, cigarettes, uncomplicated; Z87.440 Personal history of urinary (tract) infections; Z98.51 Tubal ligation status; Z98.890 Other specified postprocedural states; Z79.82 Long term (current) use of aspirin; Z79.899 Other long term (current) drug therapy; Z72.89 Other problems related to lifestyle
CPT/HCPCS: 99212; G0463

== ENCOUNTER → 2021-03-15 | Outpatient (CLI) | payer MEDICARE, OTHER ==
[~2021-03-15] MED LIST changes: +IOHEXOL 180 MG/ML 10 ML VIAL. ONE; +methylPREDNISolone ACETATE 40 MG/ML VIAL. ONE; +methylPREDNISolone ACETATE 80 MG/ML VIAL. ONE
--- NOTE | 2021-03-15 10:21 | PDOC ---
Progress Note - Pain Clinic Date of Service: DOS: DATE: 03/15/21 TIME: 10:19 Diagnosis: Dx: Lumbar radiculopathy with lumbar degenerative disease and lumbar spondylosis History or Present Illness: HPI: 60-year-old female returns for follow-up status post initial evaluation patient has had clearance to hold her Plavix now and she has been off of this for 7 days. Patient reports still significant pain low back bilateral lower extremities posterior gluteus posterior thighs posterior lateral thigh lateral anterior thighs anterior medial thighs to the feet as well patient reports is worse with walking standing changing positions also with prolonged sitting and it wakes her from sleep at least 3-4 times a night patient reports is a 10 on scale 10 at all times worst least and average is a 10 today describes aching dull cramping stabbing burning can be tight shooting and radiating the lower extremities can be constant unbearable at times patient reports no bowel or bladder incontinence no loss of motor function but significant fatigability of the lower extremities with ambulation. Physical Exam: VS: Blood pressure is 137/94 pulse 80 respirations 18 temperature 98.3 F weight is 304 pounds PE: PHYSICAL EXAMINATION: GENERAL: The patient is awake, alert, oriented, appropriate, very pleasant in demeanor HEENT: Shows normocephalic, atraumatic. Extraocular movements are intact and symmetrical. Oral cavity: Mucous membranes moist and pink. Dentition is intact. NECK: Shows anterior throat supple without palpable lymphadenopathy noted. Swallow reflex symmetrical. CHEST: Shows normal on inspection. Breath sounds are clear bilaterally. HEART: Shows S1, S2 clear. No murmurs auscultated. ABDOMEN: Soft, nontender, nondistended, obese. No palpable organomegaly is noted. BACK: Shows spine grossly in the midline. Normal-appearing cervical lordotic curvature. There is increased thoracic kyphosis, some flattening of the lumbar lordotic curvature. Lumbar paraspinous muscles show symmetrical on inspection, on palpation shows some moderate tenderness diffusely throughout the upper, middle and lower distribution of the paraspinous muscles, but without specific trigger points, without radiation of pain. The patient has good rotational motion of the lumbar spine, both laterally as well as extension and flexion without significant difficulty. EXTREMITIES: Lower extremities show deep tendon reflexes 1+ in the patellar and tendo calcaneus tendons. Motor exam is full on a scale of 5 with right dorsiflexion, extension, quadriceps and hamstring flexion and 4/5 on the left. Peripheral pulses are 1+ posterior tibial. No peripheral edema is noted bilaterally. Lower extremities are warm and dry to touch, equal in color and appearance. SKIN: Shows warm and dry, good turgor. No edema. No sores, rashes or bruising throughout. Procedure: Procedure: Options discussed with patient. Patient's old chart reviews her current medication regimen updated current review of systems updated today as well. We will proceed with a lumbar epidural steroid injection today with fluoroscopic guidance. Risks were discussed including but not limited to: Bleeding, infection, possibility of epidural hematoma and subsequent neurological c ompromise, dural puncture, headaches, spinal cord and/or nerve damage, side effects of steroid medication, and poor results regarding pain control. Patient understands and wished to proceed. Patient return to the clinic in approximately 2 weeks for follow-up, was counseled return appointment, activity level, and side effect to be aware of. Medication Injected: Med Injected: Procedure is lumbar epidural steroid injection under local anesthetic using sterile prep and drape at the L4-5 level using C-arm fluoroscopic guidance in both AP and lateral views medications injected is 120 mg Depo-Medrol +10mL preservative-free normal saline and 2 mL contrast- condition at discharge is stable patient tolerated procedure well had no complications. Condition at Discharge: Condition at Discharge: Condition at discharge stable, patient tolerated procedure well and had no complications. ILYA BREWSTER MD Mar 15, 2021 10:21
--- NOTE | 2021-03-15 10:22 | PDOC4 ---
Procedure Note: ICD 10 Code: ICD 10 Code: M54.16 M51.36 7.816 Procedure Note: Patient was consented for lumbar epidural steroid injection with fluoroscopic guidance. Risks were discussed including but not limited to: Bleeding, infection, possibility of epidural hematoma and subsequent neurological compromise, dural puncture, headaches, spinal cord and/or nerve damage, side effects of steroid medication, and poor results regarding pain control. Patient understands and wished to proceed. Procedure is lumbar epidural steroid injection under local anesthetic using st erile prep and drape at the L4-5 level using C-arm fluoroscopic guidance in both AP and lateral views medications injected is 120 mg Depo-Medrol +10mL preservative-free normal saline and 2 mL contrast- condition at discharge is stable patient tolerated procedure well had no complications. ILYA BREWSTER MD Mar 15, 2021 10:22
== END | disposition home or self-care (01) ==
LOC: PNCL 09:21
PROVIDERS: ATTEND Anesthesiology
DX: M51.16 Intervertebral disc disorders with radiculopathy, lumbar region (principal); M47.26 Other spondylosis with radiculopathy, lumbar region; I25.10 Atherosclerotic heart disease of native coronary artery without angina pectoris; I10 Essential (primary) hypertension; E78.00 Pure hypercholesterolemia, unspecified; E66.9 Obesity, unspecified; M19.90 Unspecified osteoarthritis, unspecified site; F32.9 Major depressive disorder, single episode, unspecified; F17.210 Nicotine dependence, cigarettes, uncomplicated; Z90.49 Acquired absence of other specified parts of digestive tract; Z98.890 Other specified postprocedural states; Z79.82 Long term (current) use of aspirin; Z79.899 Other long term (current) drug therapy; Z87.440 Personal history of urinary (tract) infections; Z72.89 Other problems related to lifestyle
CPT/HCPCS: 62323; J1030; J1040; Q9965

== ENCOUNTER 2021-07-14 09:53 | Emergency (ER) | payer MEDICARE, OTHER ==
[~2021-07-14] VITALS: Ht 180.3 cm; Wt 140.0 kg
[~2021-07-14 09:53] MED LIST changes: -IOHEXOL 180 MG/ML 10 ML VIAL. ONE; -methylPREDNISolone ACETATE 40 MG/ML VIAL. ONE; -methylPREDNISolone ACETATE 80 MG/ML VIAL. ONE
--- NOTE | 2021-07-14 09:55 | PHYS DOC ---
Past Medical History Past Medical History: Arthritis, GERD, High Cholesterol, Hypertension, [place], Other Additional Past Medical Histor: RA Past Surgical History: Angioplasty, Cholecystectomy, Other Additional Past Surgical Histo: cyst removed from back, Cardiac stent x2 Smoking Status: Current Every Day Smoker Alcohol Use: Occasionally Drug Use: None General Adult EDM: Chief Complaint: CHEST PAIN HPI: HPI: Patient is a 61 year old female who presents with report of 2 days of intermittent midsternal chest pain. No radiation of pain. She describes the pain as both sharp and pressure sensation. She also reports some epigastric abdominal discomfort. She reports occasional nausea, no vomiting. She denies dizziness or diaphoresis. She denies syncope or near syncope. No exertional pain. No lower extremity pain or swelling. She reports a cough for "a while" denies sputum production hemoptysis. Denies fevers or chills. Denies recent travel, surgery, hospitalization. No recent known sick contacts. She reports that she has had a previous [place], and she reports compliance with aspirin and Plavix use. She takes aspirin every day as well. She took all her regular medications this morning around 9 AM, prior to arrival. She reports compliance with all of her medications. She reports that this does not feel like her previous [place] symptoms. 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 Looked up her past medical records and it appears stated that she had a 50% RCA occlusion, which was being medically managed. Review of Systems: Review of Systems: Constitutional: Denies fever or chills. [] HENT: Denies nasal congestion or sore throat. [] Respiratory: Reports dry cough, shortness of breath. Denies hemoptysis. Cardiovascular: Denies chest pain or edema. [] GI: Denies abdominal pain, nausea, vomiting Musculoskeletal: Denies back pain or joint pain. [] Integument: Denies rash. [] Neurologic: Denies headache, focal weakness or sensory changes. Denies dizziness or syncope. Psychiatric: Denies depression or anxiety. [] Heart Score: C/O Chest Pain: Yes HEART Score for Chest Pain: HEART Score for Chest Pain Response (Comments) Value History Moderately Suspicious 1 ECG Nonspecific Repolarizatio 1 Age >45 - < 65 1 Risk Factors >3 Risk Factors or Hx CAD 2 Total 5 Risk Factors: Risk Factors: DM, Current or recent (<one month) smoker, HTN, HLP, family history of CAD, obesity. Risk Scores: Score 0 - 3: 2.5% MACE over next 6 weeks - Discharge Home Score 4 - 6: 20.3% MACE over next 6 weeks - Admit for Clinical Observation Score 7 - 10: 72.7% MACE over next 6 weeks - Early Invasive Strategies Allergies: Allergies: Allergies Coded Allergies Type Severity Reaction Last Updated Verified No Known Drug Allergies 07/29/17 No Physical Exam: PE: Constitutional: Well developed, well nourished, no acute distress, non-toxic appearance. [] HENT: Normocephalic, atraumatic Eyes:Sclera are anicteric. Neck: Normal range of motion, no tenderness, supple, no stridor. [] Cardiovascular:Heart rate regular rhythm, +2 radial and +2 posterior tibial pulses bilaterally. Warm and well-perfused. No cyanosis. Lungs & Thorax: Lungs are clear to auscultation bilaterally without rales, rhonchi, wheezes. Equal chest rise. No evidence of chest wall trauma or injury. No tenderness to the chest wall. Abdomen: Abdomen is obese, soft, nondistended, nontender to palpation. Normal bowel sounds. No palpable pulsatile mass. No CVA tenderness. No evidence of abdominal wall trauma. No ecchymoses. Skin: Warm, dry, no erythema, no rash. No jaundice. No open wounds Back: No tenderness, no CVA tenderness. [] Extremities: No tenderness, no cyanosis, no clubbing, ROM intact, no edema. No calf tenderness Neurologic: Alert and oriented X 3, normal motor function, normal sensory function, no focal deficits noted. [] Psychologic: Affect normal, judgement normal, mood normal. [] EKG: EKG: EKG is interpreted at 1001 Rhythm is sinus Rate is 66 bpm [place] is left No STEMI Radiology/Procedures: Radiology/Procedures: IMAGING REPORT Signed PATIENT: DEAN TREVIZO TACCOUNT: [id number] : 1960 LOCATION: ER AGE: 61 SEX: F EXAM STATUS: PRE ER ORD. PHYSICIAN: BLANCA BARRERA DO REASON: chest pain PROCEDURE: PORTABLE CHEST 1V EXAM: Chest, single view. HISTORY: Chest pain. COMPARISON: 09/09/2020 FINDINGS: A frontal view of the chest is obtained. There is no infiltrate, pleural effusion or pneumothorax. The heart is normal in size. IMPRESSION: No acute pulmonary finding. Electronically signed by: Florencia Crowley MD (07/14/2021 10:36 AM) [facility] DICTATED and SIGNED BY: FLORENCIA CROWLEY MD DATE: 07/14/21 [id number] 0 Course & Med Decision Making: Course & Med Decision Making Pertinent Labs and Imaging studies reviewed. (See chart for details) The patient has been resting comfortably. Her blood pressure improved. She reports no active pain at this time. Serial cardiac enzymes do not indicate acute ACS, she has had pain for 2 days. No acute ischemia on EKG. She reports compliance with medications. I have discussed all the findings, differential diagnosis and plan of care with her. I recommend she contact her secretarial stenographer at [facility], she should also contact her PCP for follow-up. No current indication for emergent imaging, invasive exams or admission at this time based on current clinical presentation. Strict return precautions are given. Dragon Disclaimer: DragGlobeIn Disclaimer: This electronic medical record was generated, in whole or in part, using a voice recognition dictation system. Departure Departure Impression: Primary Impression: Chest pain Qualified Codes: R07.9 - Chest pain, unspecified Disposition: HOME / SELF CARE / HOMELESS Condition: STABLE Referrals: MIGUEL GUZMAN MD (PCP) Patient Instructions: Chest Pain (Nonspecific) Additional Instructions: Return to the ER for more severe pain, shortness of breath, coughing up blood, severe dizziness, passing out, weakness, nausea vomiting with dehydration, severe abdominal pain or other concerns. Keep your scheduled appointments with your primary care doctor and your secretarial stenographer this month. Continue taking your regularly prescribed medications as directed. BLANCA BARRERA DO Jul 14, 2021 09:55
[2021-07-14] MEDS ORDERED: NITROGLYCERIN SUBLINGUAL 0.4 MG BOTTLE OF 25. SL PRN (10:15)
[2021-07-14 10:32] LABS: CALCIUM 9.1 mg/dL (8.5-10.1); CREATININE 0.9 mg/dL (0.6-1.0); POTASSIUM 3.6 mmol/L (3.5-5.1)
[2021-07-14 10:33] LABS: BASO % 0 % (0-3); EOS # 0.2 x10^3/uL (0.0-0.7); EOS % 2 % (0-3); HEMATOCRIT 41.8 % (36.0-47.0); HEMOGLOBIN 13.3 g/dL (12.0-15.5); LYMPH # 3.5 x10^3/uL (1.0-4.8); LYMPH % 39 % (24-48); MEAN CORPUSCULAR HEMOGLOBIN 29 pg (25-35); MEAN CORPUSCULAR HGB CONC 32 g/dL (31-37); MEAN CORPUSCULAR VOLUME 90 fL (79-100); MONO # 0.4 x10^3/uL (0.0-1.1); MONO % 5 % (0-9); NEUT # 4.8 x10^3/uL (1.8-7.7); NEUT % 54 % (31-73); PLATELET COUNT 299 x10^3/uL (140-400); RED BLOOD COUNT 4.66 x10^6/uL (3.50-5.40); RED CELL DISTRIBUTION WIDTH 13.1 % (11.5-14.5)
[2021-07-14 10:37] LABS: ALBUMIN 4.1 g/dL (3.4-5.0); ALBUMIN/GLOBULIN RATIO 0.9 (1.0-1.7); MAGNESIUM 2.4 mg/dL (1.8-2.4); TOTAL BILIRUBIN 0.3 mg/dL (0.2-1.0); TOTAL PROTEIN 8.8 g/dL (6.4-8.2)
--- NOTE | 2021-07-14 10:38 | RAD ---
EXAM: Chest, single view. HISTORY: Chest pain. COMPARISON: 09/09/2020 FINDINGS: A frontal view of the chest is obtained. There is no infiltrate, pleural effusion or pneumo thorax. The heart is normal in size. IMPRESSION: No acute pulmonary finding. Electronically signed by: Florencia Wood MD (07/14/2021 10:36 AM) [facility]
[2021-07-14 11:28] LABS: BILIRUBIN,URINE NEGATIVE (NEG); CLARITY,URINE CLEAR; COLOR,URINE YELLOW; NITRITE,URINE NEGATIVE (NEG); PH,URINE 7.5 (<5.0-8.0); PROTEIN,URINE NEGATIVE (NEG-TRACE); UROBILINOGEN,URINE 0.2 mg/dL (0.2 mg/dL)
[2021-07-14 11:30] LABS: BACTERIA,URINE FEW /HPF (0-FEW); RBC,URINE 0 /HPF (0-2); WBC,URINE OCC /HPF (0-4)
[2021-07-14 13:31] VITALS: BP 140/95
--- NOTE | 2021-07-14 21:15 | EKG ---
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
== END 2021-07-14 14:10 | disposition home or self-care (01) ==
LOC: ER 09:53
DX: R07.2 Precordial pain (principal); K21.9 Gastro-esophageal reflux disease without esophagitis; E78.00 Pure hypercholesterolemia, unspecified; I10 Essential (primary) hypertension; F17.200 Nicotine dependence, unspecified, uncomplicated; I25.2 Old myocardial infarction; Z95.5 Presence of coronary angioplasty implant and graft
CPT/HCPCS: 36415; 71045; 80053; 81001; 83690; 83735; 83880; 84484; 85025; 93005; 96360; 99285-25